=== PATIENT | female | born 2000 | race Two or more races ===

== ENCOUNTER 2024-03-31 09:01 | Outpatient (OUT) | payer BC, SELFPAY ==
--- NOTE | 2024-03-31 09:06 | US_ITS ---
[address] [address] Patient Name: KASH PARSONS MRN: [id number] date: 2000 Sex: F Assigned Patient Location: US Current Patient Location: US Accession/Order Number: [id number] Exam Date: 03/31/2024 09:08 Report Date: 03/31/2024 09:47 At the request of: ASHER CRUMP Procedure: US OB transvaginal EXAMINATION: US OB transvaginal HISTORY: Amenorrhea N91.2 Positive Test Z32.01 COMPARISON: No relevant comparison available. FINDINGS: GESTATIONAL SAC: Present and normal appearing. YOLK SAC: Present and normal appearing. POLE: Present and normal appearing. CARDIAC: 154 bpm UTERUS: Normal size and appearance. OVARIES: Right: Normal. Left: Normal. CERVIX: 4.7 cm in length and closed. CUL-DE-SAC: Normal. OTHER: None. AGE BY LMP: 7 weeks 3 days SHIRA BY LMP: 11/14/2024 AGE BY US CRL: 7 weeks 1 day SHIRA BY US CRL: 11/16/2024 US/US OB transvaginal IMPRESSION: 1. Single live intrauterine . Electronically authenticated by: MIKE VERA Date: 03/31/2024 09:47
== END 2024-03-31 09:02 | disposition home or self-care (01) ==
LOC: US 09:01
PROVIDERS: PCP Midwife; Visit Provider Midwife
DX: Z32.01 Encounter for pregnancy test, result positive (principal); Z3A.01 Less than 8 weeks gestation of pregnancy; N91.2 Amenorrhea, unspecified
CPT/HCPCS: 76817

== ENCOUNTER 2024-12-14 20:04 | Outpatient (REF) | payer BC, SELFPAY ==
--- OUTSIDE RECORDS SUMMARY | 2024-12-14 20:09 | XMS_ITS | Encounter Summary ---
Author Organization [facility] tem Address [id number] [address] [place] [address] Care Team Providers Care Dough Mixing Machine Operator Name Role Phone Services, [facility] Primary Care Provider Encounter Details Date Type Department Care Team (Late st Contact Info) Description 11/23/2024 Orders Only Maternal- Medicine at [facility] [address] [place] [phone] Lori Buck, SAM-LUIS MIGUEL [address] [place] [address] Social History Tobacco Use Types Packs/Day Years Used Date Smoking Tobacco: Never Smokeless Tobacco: Never Alcohol Use Standard Drinks/Week Comments Not Currently 0 (1 standard drink = 0.6 oz pur e alcohol) Overall Financial Resource Strain (CARDIA) Answe r Date Recorded How hard is it for you to pa y for the very basics like food, housing, medical care, and heating? Not hard at all 09/05/2020 PHQ-2 Answer Date Recorded Total Score 0 09/05/2020 PRAPARE - Transportation Answer Date Re corded In the past 12 months, has l ack of transportation kept you from medical appointments or from getting medications? No 09/05/2020 Lack of Transportation (Non-Medical) Not on file 09/05/2020 Childcare Answer Date Recorded Do problems getting child ca re make it difficult for you to work or study? No 09/05/2020 Employment Answer Date Recorded Employment Unknown 07/31/2018 Hunger Screening Answer Date Recorded Within the past 12 months we worried whether our food would run out before we got money to buy more. Never True 10/07/2024 Within the past 12 months th e food we bought just didn't last and we didn't have money to get more. Never True 10/07/2024 Purpose - Life Answer Date Recorded Purpose and direction in life Unknown Estimated Date of Delivery Comme nts Yes 05/01/2025 Based on last me nstrual period of 07/25/2024 Sex and Gender Information Value Date Recorded Sex Assigned at Not on file Legal Sex Female 2:21 PM EDT Gender Identity Not on file Sexual Orientation Not on file documented as of this encounter Plan of Treatment Upcoming Encounters Date Type Department Care Team (Late st Contact Info) Description 12/15/2024 3:15 PM EDT Hospital Encounter [facility] - Ultrasound [address] [place] [phone] 12/23/2024 1:00 PM EDT Appointment [facility] - [facility] US Imaging [address] [place] [phone] 12/23/2024 3:00 PM EDT Office Visit Maternal- Medicine at [facility] [address] [place] [phone] Jes Urrutia MD [address] [address] Pepe Vasquez MD [address] [facility], [address] [place] [phone] 01/05/2025 3:15 PM EST Appointment [facility] - Ultrasound [address] [place] [phone] 01/20/2025 1:00 PM EST Appointment [facility] - [facility] US Imaging [address] [place] [phone] documented as of this encounter Procedures Procedure Name Priority Date/Time Associated Diagnosis Comments UNLISTED LAB TEST Routine 10/27/2024 3:26 PM EDT UNLISTED LAB TEST Routine 10/23/2024 3:25 PM EDT documented in this encounter Results * Unlisted Lab Test (10/27/2024 3:26 PM EDT) us Lori Floro SUPERVISOR IN[employer]ORY MERCHANDISING-[facility] LAB BLOOD ORDERABLES Yola l Result Performing Organization Address City/[facility] de Phone Number MANUALLY TRANSCRIBED RESULTS * Unlisted Lab Test (10/23/2024 3:25 PM EDT) us Lori Floro SUPERVISOR [employer] MERCHANDISING[employer] LAB BLOOD ORDERABLES Yola l Result Performing Organization Address [facility] de Phone Number MANUALLY TRANSCRIBED RESULTS documented in this encounter Visit Diagnoses Not on filedocumented in this encounter Additional Health Concerns Assessment Noted Time PHQ-9 Depression Total Score: 0 09/06/19 21 10:51 AM EDT documented as of this encounter Care Teams Dough Mixing Machine Operator Relationship Specialty Start Date End Date Services, [facility] [address] [place] PCP - General Family Medicine 03/12/17 documented as of this encounter
--- OUTSIDE RECORDS SUMMARY | 2024-12-14 20:09 | XMS_ITS | Clinical Summary ---
[facility] Organization [facility] tem Address [id number] [address] [place] [address] Care Team Providers Care Rn Home Health Name Role Phone Services, [facility] Primary Care Provider Allergies No known active allergies Medications ondansetron ODT (ZOFRAN ODT) 4 mg disintegrating tablet Dissolve 1 tablet (4 mg total) on tongue every 8 (eight) hours as needed for nausea for up to 10 doses. 10 tablet 5 Active 21-iron fu-folic acid ( COMPLETE) 14 mg iron- 400 mcg tablet Take 1 tablet by mouth in the morning. 30 tablet 5 Active Active Problems Problem Noted Date Diagnosed Date Pelvic pressure in , antepartum, third trimester 02/27/2021 09/08/2020 UTI (urinary tract infection) 09/07/2020 Primiparity 09/07/2020 Estimated Date of Delivery Comme nts Yes 05/01/2025 Based on last me nstrual period of 07/25/2024 Encounters Date Type Department Care Team Description 11/27/2024 Orders Only Maternal- Medicine at [facility] [address] [place] [phone] Carley Johnson RN Monochorionic diamniotic twin gestation in second trimester (Primary Dx) 11/27/2024 Orders Only Maternal- Medicine at [facility] [address] [place] [phone] Carley Johnson RN Monochorionic diamniotic twin gestation in second trimester (Primary Dx) 11/27/2024 Orders Only Maternal- Medicine at [facility] [address] [place] [address] Carley Johnson RN Monochorionic diamniotic twin gestation in second trimester (Primary Dx) 11/27/2024 Telephone Maternal- Medicine at [facility] [address] [place] [address] Lee Meadows 11/25/2024 12:57 PM EDT - 11/25/2024 11:59 PM EDT Hospital Encounter [facility] US Imaging [address] [place] [address] Monochorionic diamniotic twin gestation in second trimester Discharge Disposition: Home 11/25/2024 Travel 11/23/2024 Orders Only Maternal- Medicine at [facility] [address] [place] [address] Lori Buck APRN-LUIS MIGUEL 11/23/2024 Abstract Maternal- Medicine at [facility] [address] [place] [address] External, Scanning Provider 11/20/2024 Orders Only Maternal- Medicine at [facility] [address] [place] [address] Teresa Mercado RN Monochorionic diamniotic twin gestation in second trimester (Primary Dx) 10/07/2024 12:40 AM EDT - 10/07/2024 2:21 AM EDT Emergency [facility] - Emergency [address] [place] [address] Wesly Smith DO Vaginal bleeding affecting early (Primary Dx) Discharge Disposition: Home 10/07/2024 Travel from Last 3 Months Family History Medical History Relation Name Comments No Known Problems Father No Known Problems Mother No Known Problems Sister 1 No Known Problems Sister 2 No Known Problems Sister 3 No Known Problems Sister 4 Breast cancer Neg Hx Colon cancer Neg Hx Ovarian cancer Neg Hx Relation Name Status Comments Father Alive Mother Alive Sister 1 Alive Sister 2 Alive Sister 3 Alive Sister 4 Alive Social History Tobacco Use Types Packs/Day Years [...] on file Sexual Orientation Not on file Last Filed Vital Signs Vital Sign Reading Time Taken Comments Blood Pressure 111/71 10/07/2024 12:44 AM EDT Pulse 98 10/07/2024 12:44 AM EDT Temperature 36.8 C (98.2 F) 10/07/2024 12:44 AM EDT Respiratory Rate 18 10/07/2024 12:44 AM EDT Oxygen Saturation 99% 10/07/2024 12:44 AM EDT Inhaled Oxygen Concentration - - Weight 46.3 kg (102 lb) 10/07/2024 12:44 AM EDT Height 157.5 cm (5' 2 ) 10/07/2024 12:44 AM EDT Body Mass Index 18.66 10/07/2024 12:44 AM EDT Plan of Treatment Upcoming Encounters Date Type Department Care Team (Late st Contact Info) Description 12/15/2024 3:15 PM EDT Hospital Encounter [facility] - Ultrasound [address] [place] [address] 12/23/2024 1:00 PM EDT Appointment [facility] US Imaging [address] [place] [phone] 12/23/2024 3:00 PM EDT Office Visit Maternal- Medicine at [facility] [address] [place] [address] Jes Urrutia MD [address] [place] [address] Pepe Vasquez MD [address], [address] [place] [address] 01/05/2025 3:15 PM EST Appointment [facility] - Ultrasound [address] [place] [address] 01/20/2025 1:00 PM EST Appointment [facility] US Imaging [address] [place] [phone] Health Maintenance Due Date Last Done Comments Depression Screening 2014 Chlamydia Screening 08/10/2021 08/10/2020 Pap Smear 06/14/2023 DTaP,Tdap and Td Vaccines (7 - Td or Tdap) 08/09/2024 08/09/2014, 06/26/2007, 12/24/2003, Additional history exists Influenza Vaccine 10/26/2024 12/27/2011 Adult BMI Screening 10/07/2025 10/07/2024 Tobacco Screening 10/07/2025 10/07/2024 Medical Devices Not on file Procedures Procedure Name Priority Date/Time Associated Diagnosis Comments US [facility] COMPREHENSIVE ANATOMIC SURVEY Routine 11/25/2024 3:09 PM EDT Monochorionic diamniotic twin gestation in second trimester UNLISTED LAB TEST Routine 10/27/2024 3:2 6 PM EDT UNLISTED LAB TEST Routine 10/23/2024 3:2 5 PM EDT POCT NURSING URINE MACROSCOPIC UA Routine 10/07/2024 1:07 AM EDT HCG-BETA, SERUM STAT 10/07/2024 12:54 AM EDT EXTRA TUBES SST TOP Routine 10/07/2024 1 2:53 AM EDT EXTRA TUBES LAVENDER TOP Routine 10/07/2024 12:53 AM EDT EXTRA TUBES Routine 10/07/2024 12:53 AM EDT ER EXTRA URINE MARBLE STAT 10/07/2024 12:50 AM EDT ER EXTRA URINE CULTURE STAT 12:50 AM EDT ER EXTRA URINE STAT 10/07/2024 12:50 AM EDT TYPE AND SCREEN Routine 10/05/2024 TYPE AND SCREEN Routine 10/05/2024 TSH Routine 10/05/2024 T4, FREE Routine 10/05/2024 HEPATITIS C(HCV) ANTIBODY W/REFLEX TO PCR Routine 10/05/2024 HIV 1&2 AB/AG SCREEN (P24 AG) Routine 10/05/2024 HEMOGLOBIN A1C Routine 10/05/2024 HEPATITIS B SURFACE ANTIGEN Routine 10/05/2024 CBC (NO DIFF) Routine 10/05/2024 RUBELLA IGG IMMUNE STATUS Routine 10/05/2024 CHLAMYDIA/GC BY PCR MOIRA SWAB STAT 08/10/2020 7:55 PM EDT from Last 3 Months or Most Recently Relevant to Health Maintenance Results * [facility] COMPREHENSIVE ANATOMIC SURVEY (11/25/2024 3:09 PM EDT) Anatomical Region Laterality Modality OB-[employer]IL [employer] Ultrasound 11/25/2024 1:15 PM EDT Narrative 11/26/2024 1:12 PM EDT NAME: ISSA HEWITT : 2000 SEX: F Accession Number: [id number] ORDERING PHYSICIAN: HILL ROA REFERRING PHYSICIAN: HILL ROA ADDENDUM ----- --------- Both in 1st to call axis axis caution unlike has been told that you do not talk on the phone unlike want to talk on the [place] images in the middle night of patients updated labs and people thinking that is okay all gotten unlike correct but if you need to get a hold of me than all Coding ----- --------- Procedures [id number]: Ultrasound, uterus, real time with image documentation, and maternal evaluation plus detailed anatomic examination, transabdominal approach;single or first gestation. 2 77754: Doppler velocimetry, ; middle cerebral artery. 2 Indication ----- --------- Screening for Anatomic Survey, Ceiba-Di twin . History ----- --------- OB History 2. Para 1 [id number] Current ----- --------- Cell free DNA Low Risk analysis Low Risk Maternal Assessment ----- --------- Physical Exam Height 157 cm, 5 ft 2 in. Weight 50 kg, 111 lb. Initial weight 46 kg, 102 lb. BMI 20.30 kg/m . Initial BMI 18.66 kg/m . Weight gain 4 kg, 9 lb Method ----- --------- Transabdominal ultrasound examination. View: Suboptimal view: limited by position. ----- --------- Twin . Number of fetuses: 2. Monochorionic-diamniotic Dating ----- --------- LMP on: 07/25/2024 GA by LMP 17 w + 4 d SHIRA by LMP: 05/01/2025 Previous Ultrasound on: 09/28/2024 Type of prior assessment: GA GA at prior assessment date 9 w + 0 d GA by previous U/S 17 w + 2 d SHIRA by previous Ultrasound: 05/03/2025 Ultrasound examination on: 11/25/2024 GA by U/S based upon: AC, BPD, Femur, HC GA by U/S 17 w + 4 d SHIRA by U/S: 05/01/2025 GA by U/S based upon (Fetus 2): AC, BPD, Femur, HC GA by U/S (Fetus 2) 18 w + 0 d SHIRA by U/S (Fetus 2): 04/28/2025 Assigned: based on the LMP, selected on 11/25/2024 Assigned GA (weeks days) 17 w + 4 d Assigned SHIRA: 05/01/2025 Fetus A: General Evaluation ----- --------- Cardiac activity Present. FHR 151 bpm. Presentation: cephalic, Lower Left Placenta: Placental site: anterior, away from cervical os Umbilical cord: Cord vessels: 3 vessel cord. Insertion site: not examined Amniotic fluid: Amount of AF: normal amount. MVP 3.4 cm Fetus B: General Evaluation ----- --------- Cardiac activity Present. FHR 148 bpm. Presentation: cephalic, Upper Right Placenta: Placental site: anterior, away from cervical os Umbilical cord: Cord vessels: 3 vessel cord. Insertion site: not examined Amniotic fluid: Amount of AF: normal amount. MVP 4.1 cm Fetus A: Biometry ----- --------- Standard BPD 39.1 mm 17w 6d 65% Hadlock OFD 50.0 mm 18w 3d 81% Alina HC 143.2 mm 17w 4d 41% Hadlock Cerebellum tr 17.1 mm 17w 2d 32% Hill Nuchal fold 1.7 mm AC 121.9 mm 17w 6d 58% Hadlock Femur 22.8 mm 16w 6d 19% Hadlock Humerus 22.2 mm 16w 6d 27% Alina HC / AC 1.17 37% Hadlock EFW 193 g 34% Hadlock EFW discordance 10.6 % EFW (lb) 0 lb EFW (oz) 7 oz EFW by: Hadlock ([id number]) Extended Tibia 18.7 mm 16w 3d 18% Alina CM 4.1 mm 41% Nicolaides Head / Face / Neck Cephalic index 0.78 38% Nicolaides Nasal bone: not examined Extremities / Bony Struc FL / BPD 0.58 6% Hadlock FL / HC 0.16 11% Hadlock FL / AC 0.19 8% Hadlock Other Structures FHR 151 bpm Fetus B: Biometry ----- --------- Standard BPD 39.2 mm 17w 6d 66% Hadlock OFD 53.3 mm 19w 1d 95% Alina HC 148.2 mm 18w 0d 61% Hadlock Cerebellum tr 18.4 mm 18w 1d 80% Hill Nuchal fold 3.0 mm AC 130.4 mm 18w 4d 80% Hadlock Femur 24.0 mm 17w 2d 32% Hadlock Humerus 23.3 mm 17w 2d 43% Alina HC / AC 1.14 19% Hadlock EFW 216 g 66% Hadlock EFW discordance 10.6 % EFW (lb) 0 lb EFW (oz) 8 oz EFW by: Hadlock ([id number]) Extended Tibia 20.1 mm 17w 0d 35% Alina CM 3.5 mm 22% Nicolaides Head / Face / Neck Cephalic index 0.74 5% Nicolaides Nasal bone: not examined Extremities / Bony Struc FL / BPD 0.61 21% Hadlock FL / HC 0.16 11% Hadlock FL / AC 0.18 5% Hadlock Other Structures FHR 148 bpm Fetus A: Anatomy ----- --------- The following structures appear normal: Head/Neck: Cranium. Choroid plexus. Midline falx. Cavum septi pellucidi. Cerebellum. Cisterna magna. Parenchyma. Neck. Nuchal fold. Heart/Thorax: Situs. Cardiac position. Cardiac axis. Cardiac size. Cardiac rhythm. Right lung. Left lung. Abdomen: Stomach. Kidneys. Bladder. Small bowel. Large bowel. Genitals. Extremities/Skeleton: Right upper arm. Right forearm. Right hand. Left upper arm. Left forearm. Right upper leg. Right lower leg. Left upper leg. Left lower leg. The following structures could not be adequately visualized: Head / Neck Vermis. Heart / Thorax 4-chamber view. 3-vessel view. 4-ceetpr-yfsdbkh view. Aortic arch view. Bicaval view. Interventricular septum. Great vessels. Spine: Cervical spine. Thoracic spine. Lumbar spine. Sacral spine. Extremities / Left hand. Left foot. Skeleton The following structures could not be examined: Head / Neck Lateral ventricles. Face: Lips. Profile. Nose. Nasal bone. Maxilla. Mandible. Orbits. Heart / Thorax RVOT view. LVOT view. Ductal arch view. Diaphragm. Abdomen Abdom. wall. Cord insertion. Right renal artery. Left renal artery. Extremities / Right foot. Skeleton Fetus B: Anatomy ----- --------- The following structures appear normal: Head / Neck Cranium. Choroid plexus. Midline falx. Cerebellum. Cisterna magna. Parenchyma. Neck. Face Lips. Nose. Heart / Thorax Situs. Cardiac position. Cardiac axis. Cardiac size. Cardiac rhythm. Right lung. Left lung. Diaphragm. Abdomen Abdom. wall. Cord insertion. Stomach. Kidneys. Bladder. Small bowel. Large bowel. Genitals. Extremities / Right upper arm. Right forearm. Right hand. Left upper arm. Left forearm. Right upper leg. Right lower Skeleton leg. Left upper leg. Left lower leg. The following structures could not be adequately visualized: Head / Neck Cavum septi pellucidi. Face Profile. Heart / Thorax 4-chamber view. RVOT view. LVOT view. 3-vessel view. 9-saftkw-vwbjfzi view. Aortic arch view. Bicaval view. Ductal arch view. Interventricular septum. Great vessels. Spine Cervical spine. Thoracic spine. Lumbar spine. Sacral spine. Extremities / Left hand. Right foot. Left foot. Skeleton The following structures could not be examined: Head / Neck Lateral ventricles. Vermis. Nuchal fold. Face Nasal bone. Maxilla. Mandible. Orbits. Abdomen Right renal artery. Left renal artery. Fetus A: Doppler ----- --------- Mid Cerebral Artery: normal PI 1.42 RI 0.75 PS 20.96 cm/s PS 0.92 MoM ED 5.30 cm/s TAmax 11.06 cm/s Fetus B: Doppler ----- --------- Mid Cerebral Artery: normal PI 1.14 RI 0.72 PS 21.77 cm/s PS 0.96 MoM ED 6.15 cm/s TAmax 13.66 cm/s Maternal Structures ----- --------- Uterus Visualized Cervix Suboptimal Approach - Transabdominal Right Ovary Visualized Size 1.9 cm x 2.0 cm x 1.4 cm. Vol 2.7 cm Left Ovary Not visualized Cul de Sac Suboptimal Impression ----- --------- Monochorionic-diamniotic twin consistent with 17w 4d with an SHIRA of 05/01/2025. Twin A is cephalic, Lower Left. EFW measures at the 34%, AC measures at the 58%. Amniotic fluid MVP measures 3.4 cm. MCA PSV is in the unremarkable range for the evaluation of anemia. Twin B is cephalic, Upper Right. EFW mesures at the 66%, AC measures at the 80%. Amniotic fluid MVP measures 4.1 cm. MCA PSV is in the unremarkable range for the evaluation of anemia. Twin growth discordance is 10.6%. Recommendations ----- --------- TTTS surveillance follow up every 2 weeks with Dopplers. The patient is scheduled in four to six week(s) to complete anatomic survey, echocardiogram, cervical length and Dopplers. Subsequent follow up or other follow up as clinically determined by primary OB provider unless otherwise specified by M. Results forwarded to ordering provider so they can follow up with the patient as necessary. Procedure Note Jes Urrutia MD - 11/26/2024 NAME: ISSA HEWITT : 2000 SEX: F Accession Number: [id number] ORDERING PHYSICIAN: HILL ROA REFERRING PHYSICIAN: HILL ROA ADDENDUM ----- --------- Both in 1st to call axis axis caution unlike has been told that you do nottalk on the phone unlike want to talk on the [place] images in the middle night of patients updated labs and people thinkingthat is okay all gotten unlike correct but if you need to get a hold of me than all Coding ----- --------- Procedures [id number]: Ultrasound, uterus, real time with imagedocumentation, and maternal evaluation plus detailed anatomic examination, transabdominalapproach;single or first gestation. 2 17990: Doppler velocimetry, ; middle cerebral artery. 2 Indication ----- --------- Screening for Anatomic Survey, Ceiba-Di twin . History ----- --------- OB History 2. Para 1 [id number] Current ----- --------- Cell free DNA Low Risk analysis Low Risk Maternal Assessment ----- --------- Physical Exam Height 157 cm, 5 ft 2 in. Weight 50 kg, 111 lb. Initialweight 46 kg, 102 lb. BMI 20.30 kg/m . Initial BMI 18.66 kg/m . Weight gain 4 kg, 9 lb Method ----- --------- Transabdominal ultrasound examination. View: Suboptimal view: limited byfetal position. ----- --------- Twin . Number of fetuses: 2. Monochorionic-diamniotic Dating ----- --------- LMP on: 07/25/2024 GA by LMP 17 w + 4 d SHIRA by LMP: 05/01/2025 Previous Ultrasound on: 09/28/2024 Type of prior assessment: GA GA at prior assessment date 9 w + 0 d GA by previous U/S 17 w + 2 d SHIRA by previous Ultrasound: 05/03/2025 Ultrasound examination on: 11/25/2024 GA by U/S based upon: AC, BPD, Femur, HC GA by U/S 17 w + 4 d SHIRA by U/S: 05/01/2025 GA by U/S based upon (Fetus 2): AC, BPD, Femur, HC GA by U/S (Fetus 2) 18 w + 0 d SHIRA by U/S (Fetus 2): 04/28/2025 Assigned: based on the LMP, selected on 11/25/2024 Assigned GA (weeks days) 17 w + 4 d Assigned SHIRA: 05/01/2025 Fetus A: General Evaluation ----- --------- Cardiac activity Present. FHR 151 bpm. Presentation: cephalic, LowerLeft Placenta: Placental site: anterior, away from cervical os Umbilical cord: Cord vessels: 3 vessel cord. Insertion site: notexamined Amniotic fluid: Amount of AF: normal amount. MVP 3.4 cm Fetus B: General Evaluation ----- --------- Cardiac activity Present. FHR 148 bpm. Presentation: cephalic, UpperRight Placenta: Placental site: anterior, away from cervical os Umbilical cord: Cord vessels: 3 vessel cord. Insertion site: notexamined Amniotic fluid: Amount of AF: normal amount. MVP 4.1 cm Fetus A: Biometry ----- --------- Standard BPD 39.1 mm 17w 6d 65% Hadlock OFD 50.0 mm 18w 3d 81% Alina HC 143.2 mm 17w 4d 41% Hadlock Cerebellum tr 17.1 mm 17w 2d 32% Hill Nuchal fold 1.7 mm AC 121.9 mm 17w 6d 58% Hadlock Femur 22.8 mm 16w 6d 19% Hadlock Humerus 22.2 mm 16w 6d 27% Alina HC / AC 1.17 37% Hadlock EFW 193 g 34% Hadlock EFW discordance 10.6 % EFW (lb) 0 lb EFW (oz) 7 oz EFW by: Hadlock ([id number]) Extended Tibia 18.7 mm 16w 3d 18% Alina CM 4.1 mm 41% Nicolaides Head / Face / Neck Cephalic index 0.78 38% Nicolaides Nasal bone: not examined Extremities / Bony Struc FL / BPD 0.58 6% Hadlock FL / HC 0.16 11% Hadlock FL / AC 0.19 8% Hadlock Other Structures FHR 151 bpm Fetus B: Biometry ----- --------- Standard BPD 39.2 mm 17w 6d 66% Hadlock OFD 53.3 mm 19w 1d 95% Alina HC 148.2 mm 18w 0d 61% Hadlock Cerebellum tr 18.4 mm 18w 1d 80% Hill Nuchal fold 3.0 mm AC 130.4 mm 18w 4d 80% Hadlock Femur 24.0 mm 17w 2d 32% Hadlock Humerus 23.3 mm 17w 2d 43% Alina HC / AC 1.14 19% Hadlock EFW 216 g 66% Hadlock EFW discordance 10.6 % EFW (lb) 0 lb EFW (oz) 8 oz EFW by: Hadlock ([id number]) Extended Tibia 20.1 mm 17w 0d 35% Alina CM 3.5 mm 22% Nicolaides Head / Face / Neck Cephalic index 0.74 5% Nicolaides Nasal bone: not examined Extremities / Bony Struc FL / BPD 0.61 21% Hadlock FL / HC 0.16 11% Hadlock FL / AC 0.18 5% Hadlock Other Structures FHR 148 bpm Fetus A: Anatomy ----- --------- The following structures appear normal: Head/Neck: Cranium. Choroid plexus. Midline falx. Cavum septi pellucidi.Cerebellum. Cisterna magna. Parenchyma. Neck. Nuchal fold. Heart/Thorax: Situs. Cardiac position. Cardiac axis. Cardiac size. Cardiacrhythm. Right lung. Left lung. Abdomen: Stomach. Kidneys. Bladder. Small bowel. Large bowel. Genitals. Extremities/Skeleton: Right upper arm. Right forearm. Right hand. Leftupper arm. Left forearm. Right upper leg. Right lower leg. Left upper leg. Left lower leg. The following structures could not be adequately visualized: Head / Neck Vermis. Heart / Thorax 4-chamber view. 3-vessel view. 8-esolbj-hysxfoo view.Aortic arch view. Bicaval view. Interventricular septum. Great vessels. Spine: Cervical spine. Thoracic spine. Lumbar spine. Sacral spine. Extremities / Left hand. Left foot. Skeleton The following structures could not be examined: Head / Neck Lateral ventricles. Face: Lips. Profile. Nose. Nasal bone. Maxilla. Mandible. Orbits. Heart / Thorax RVOT view. LVOT view. Ductal arch view. Diaphragm. Abdomen Abdom. wall. Cord insertion. Right renal artery. Left renalartery. Extremities / Right foot. Skeleton Fetus B: Anatomy ----- --------- The following structures appear normal: Head / Neck Cranium. Choroid plexus. Midline falx. Cerebellum. Cisternamagna. Parenchyma. Neck. Face Lips. Nose. Heart / Thorax Situs. Cardiac position. Cardiac axis. Cardiac size.Cardiac rhythm. Right lung. Left lung. Diaphragm. Abdomen Abdom. wall. Cord insertion. Stomach. Kidneys. Bladder.Small bowel. Large bowel. Genitals. Extremities / Right upper arm. Right forearm. Right hand. Left upper arm.Left forearm. Right upper leg. Right lower Skeleton leg. Left upper leg. Left lower leg. The following structures could not be adequately visualized: Head / Neck Cavum septi pellucidi. Face Profile. Heart / Thorax 4-chamber view. RVOT view. LVOT view. 3-vessel view.6-qfaosd-uekesld view. Aortic arch view. Bicaval view. Ductal arch view. Interventricular septum. Great vessels. Spine Cervical spine. Thoracic spine. Lumbar spine. Sacral spine. Extremities / Left hand. Right foot. Left foot. Skeleton The following structures could not be examined: Head / Neck Lateral ventricles. Vermis. Nuchal fold. Face Nasal bone. Maxilla. Mandible. Orbits. Abdomen Right renal artery. Left renal artery. Fetus A: Doppler ----- --------- Mid Cerebral Artery: normal PI 1.42 RI 0.75 PS 20.96 cm/s PS 0.92 MoM ED 5.30 cm/s TAmax 11.06 cm/s Fetus B: Doppler ----- --------- Mid Cerebral Artery: normal PI 1.14 RI 0.72 PS 21.77 cm/s PS 0.96 MoM ED 6.15 cm/s TAmax 13.66 cm/s Maternal Structures ----- --------- Uterus Visualized Cervix Suboptimal Approach - Transabdominal Right Ovary Visualized Size 1.9 cm x 2.0 cm x 1.4 cm. Vol 2.7 cm Left Ovary Not visualized Cul de Sac Suboptimal Impression ----- --------- Monochorionic-diamniotic twin consistent with 17w 4d with an EDDof 05/01/2025. Twin A is cephalic, Lower Left. EFW measures at the 34%, AC measures at the 58%. Amniotic fluid MVP measures 3.4 cm. MCA PSV is in the unremarkable range for the evaluation of anemia. Twin B is cephalic, Upper Right. EFW mesures at the 66%, AC measures at the 80%. Amniotic fluid MVP measures 4.1 cm. MCA PSV is in the unremarkable range for the evaluation of anemia. Twin growth discordance is 10.6%. Recommendations ----- --------- TTTS surveillance follow up every 2 weeks with Dopplers. The patient is scheduled in four to six week(s) to complete anatomicsurvey, echocardiogram, cervical length and Dopplers. Subsequent follow up or other follow up as clinically determined byprimary OB provider unless otherwise specified by [facility]. Results forwarded to ordering provider so they can follow up with thepatient as necessary. Hill Roa DO [facility] ORDERABLES Final Result * Unlisted Lab Test (10/27/2024 3:26 PM EDT) Only the most recent of2 resultswithin the time period is included. Lori GAMBOA LAB BLOOD ORDERABLES Yola l Result MANUALLY TRANSCRIBED RESULTS * POCT Nursing Urine Macroscopic UA (10/07/2024 1:07 AM EDT) POC Urine Specific Ponce 1.020 1.010, 1.015, 1.020, 1.025 10/07/2024 12:58 AM EDT [facility] POC Urine Leukocyte Esterase Negative Negative 10/07/2024 12:58 AM EDT [facility] POC Urine Nitrite Negative Negative 10/07/2024 12:58 AM EDT [facility] POC Urine pH 7.5 5.0, 6.0, 6.5, 7.0, 7.5, 8.0, 8.5, 5.5 10/07/2024 12:58 AM EDT [facility] POC Urine Protein Negative Negative 10/07/2024 12:58 AM EDT [facility] POC Urine Glucose Negative Negative 10/07/2024 12:58 AM EDT [facility] POC Urine Ketones Negative Negative 10/07/2024 12:58 AM EDT [facility] POC Urine Urobilinogen 0.2 E.U./dL 10/07/2024 12:58 AM EDT [facility] POC Urine Bilirubin Negative Negative 10/07/2024 12:58 AM EDT [facility] POC Urine Blood/HGB Negative Negative 10/07/2024 12:58 AM EDT [facility] Urine 10/07/2024 1:07 AM EDT 10/07/2024 12:58 AM EDT Wesly Smith DO POINT OF CARE TEST ORDERABLES Final Result [facility] [address] [place] [address], [place] * HCG, Quantitative, (10/07/2024 12:54 AM EDT) SERUM B HCG,3RD I.S. 238,709 mIU/mL 10/07/2024 2:07 AM EDT [facility] Blood Venous blood / Unknown Venipuncture / Unknown 10/07/2024 12:54 AM EDT 10/07/2024 12:55 AM EDT Narrative [facility] - 10/07/2024 2:07 AM EDT WEEKS (SINCE LMP) MIU/mL 3 WEEKS 5 - 50 4 WEEKS 5 - 426 5 WEEKS 18 - 7,340 6 WEEKS 1,080 - 56,500 7-8 WEEKS 7,650 - 229,000 9-12 WEEKS 25,700 - 288,000 13-16 WEEKS 13,300 - 254,000 17-24 WEEKS 4,060 - 165,400 25-40 WEEKS 3,640 - 117,000 MALES AND NON- FEMALES - <5 MIU/mL This test has been FDA approved for use in only. Elevated levels are not necessarily diagnostic for trophoblastic or nontrophoblastic neoplasms. Wesly Smith DO LAB BLOOD ORDERABLES Final Re sult Performing Organization Address City/[facility]/ZIP Co de Phone Number [address] [place], [place] [id number], [place] * SST TOP (10/07/2024 12:53 AM EDT) Extra Tube Auto Resulted 10/07/2024 2:02 AM EDT [facility] Blood Venous blood / Unknown 10/07/2024 12:53 AM EDT 10/07/2024 12:55 AM EDT Wesly Smith DO LAB BLOOD ORDERABLES Final Re sult Performing Organization Address [facility] Co de Phone Number [address] [place] [address], [place] * Lavender Top (10/07/2024 12:53 AM EDT) Extra Tube Auto Resulted 10/07/2024 2:02 AM EDT [facility] Blood Venous blood / Unknown 10/07/2024 12:53 AM EDT 10/07/2024 12:55 AM EDT Wesly Smith DO LAB BLOOD ORDERABLES Final Re sult Performing Organization Address City/[facility] Co de Phone Number [address] [place] [address], [place] * Extra Urine Lamar (10/07/2024 12:50 AM EDT) Extra Tube Auto Resulted 10/07/2024 2:02 AM EDT [facility] Urine Urine specimen collection, clean catch / Unknown 10/07/2024 12:50 AM EDT 10/07/2024 1:27 AM EDT us Wesly Smith DO URINE ORDERABLES Final Result Performing Organization Address [facility] Co de Phone Number [address] [place] [address], [place] * Extra Urine Culture (10/07/2024 12:50 AM EDT) Extra Tube Auto Resulted 10/07/2024 2:02 AM EDT [facility] Urine Urine specimen collection, clean catch / Unknown 10/07/2024 12:50 AM EDT 10/07/2024 1:27 AM EDT us Wesly Smith DO URINE ORDERABLES Final Result Performing Organization Address [facility] Co de Phone Number [address] [place] [address], [place] * Extra Urine (10/07/2024 12:50 AM EDT) Extra Tube Auto Resulted 10/07/2024 2:02 AM EDT [facility] Urine Urine specimen collection, clean catch / Unknown 10/07/2024 12:50 AM EDT 10/07/2024 1:27 AM EDT us Wesly Smith DO URINE ORDERABLES Final Result Performing Organization Address [facility] Co de Phone Number [address] [place] [address], [place] * HIV 1&2 AB/AG Screen (P24 AG) (10/05/2024) HIV 1&2 AB/AG Negative MANUAL LY TRANSCRIBED RESULTS Blood Venous blood / Unknown us Not In System Ref Prov LAB BLOOD ORDERABLES Yola l Result Performing Organization Address City/[facility]/ZIP Co de Phone Number MANUALLY TRANSCRIBED RESULTS * Rubella IGG immune status (10/05/2024) Rubella immune IgG 1.22 MANUALLY TRANSCRIBED RESULTS Blood Venous blood / Unknown us Not In System Ref Prov LAB BLOOD ORDERABLES Yola l Result Performing Organization Address City/[facility]/ZIP Co de Phone Number MANUALLY TRANSCRIBED RESULTS * Hepatitis C(HCV) Ab w/ Reflex to PCR (10/05/2024) Hepatitis C Antibody Non Reactive MANUALLY TRANSCRIBED RESULTS Blood Venous blood / Unknown us Not In System Ref Prov LAB BLOOD ORDERABLES Yola l Result Performing Organization Address [facility] Co de Phone Number MANUALLY TRANSCRIBED RESULTS * Hepatitis B surface antigen (10/05/2024) Hepatitis B Surface Antigen Non Reactive MANUALLY TRANSCRIBED RESULTS Blood Venous blood / Unknown us Not In System Ref Prov LAB BLOOD ORDERABLES Yola l Result Performing Organization Address [facility] de Phone Number MANUALLY TRANSCRIBED RESULTS * CBC without diff (10/05/2024) Hemoglobin 11.0 MANUALLY TRANSCRIBED RESULTS Hematocrit 35.0 MANUALLY TRANSCRIBED RESULTS Rbc Mcv (Fl) By Automated Count 86.8 MANUALLY TRANSCRIBED RESULTS Blood Venous blood / Unknown us Not In System Ref Prov LAB BLOOD ORDERABLES Yola l Result Performing Organization Address [facility] Co de Phone Number MANUALLY TRANSCRIBED RESULTS * Type and screen (10/05/2024) Only the most recent of2 resultswithin the time period is included. Abo/Rh(D) O Positive MANUALLY TRANSCRIBED RESULTS Blood Venous blood / Unknown us Not In System Ref Prov BLOOD BANK TEST ORDERABLE S Final Result MANUALLY TRANSCRIBED RESULTS * TSH (10/05/2024) Thyroid Stimulating (3Rd Generation) Hormone/ Tsh 0.18 MANUALLY TRANSCRIBED RESULTS Blood Venous blood / Unknown us Not In System Ref Prov LAB BLOOD ORDERABLES Yola l Result MANUALLY TRANSCRIBED RESULTS * T4, free (10/05/2024) T4 Free Free T4 1.3 MANUALLY TRANSCRIBED RESULTS Blood Venous blood / Unknown us Not In System Ref Prov LAB BLOOD ORDERABLES Yola l Result MANUALLY TRANSCRIBED RESULTS * Hemoglobin A1c (10/05/2024) Pathologist [facility] Hemoglobin A1C 5.1 4.0 - 6.0 % MANUALLY TRANSCRIBED RESULTS Blood Venous blood / Unknown us Scanning Provider External LAB BLOOD ORDERABLES Final Result MANUALLY TRANSCRIBED RESULTS * Chlamydia/GC by PCR Moira Swab (08/10/2020 7:55 PM EDT) Pathologist [facility] Specimen source VS 8:06 PM EDT [facility] Chlamydia DNA PCR Negative Negative^N egative 08/12/2020 12:55 PM EDT [facility] Comment: Chlamydia trachomatis not detected by nucleic acid amplification. This does not exclude the possibility of infection because results are dependent on adequate specimen collection. Gonorrhea DNA PCR Negative Negative^N egative 08/12/2020 12:55 PM EDT [facility] Comment: Neisseria gonorrhoeae not detected by nucleic acid amplification. This does not exclude the possibility of infection because results are dependent on adequate specimen collection. GENS 08/10/2020 7:55 PM EDT 08/11/2020 11:00 AM EDT us Corey Dc MD MICROBIOLOGY - GENERAL ORDERABLE S Final Result [facility] [address] [place] [address] [facility] [address] [place] [address] from Last 3 Months or Most Recently Relevant to Health Maintenance Insurance [employer]THE[employer] Care Teams Rn Home Health Relationship Specialty Start Date End Date Services, [facility] [place] [place] PCP - General Family Medicine 03/12/17
--- OUTSIDE RECORDS SUMMARY | 2024-12-14 20:09 | XMS_ITS | Patient Health Record ---
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 Name Role Phone Maura Boucher Unavailable [phone] Bridget Pelaez Unavailable [phone] Allergies No Known Allergies Reason For Referral Reason Please extract #[phone] ,[phone] Diagnosis 1 Encounter for dental examination and cleaning with abnormal findings (Z01.21) Referral Organization [facility] Referring Provider First Name Bridget Referring Provider Last Name Benigno Referring Provider Speciality Dental Gen era Practice Referred Provider Fernando Velazquez Referred Provider Specialty Oral Surgery General Notes Heavenly Umaña 05/26 12:35:04 PM >Referral report is attached to this referral. Referral Priority Routine Immunizations Vaccine Route Administration Date Status Comme nts *Hep A, ped/adol, 2 dose-VFC IM Intramuscular 12/18/2011 Administered Status:Complete ,Reason:Given or N/A *Hep B, adolescent or pediatric (11-19), 3 dose schedule-VFC IM Intramuscular 06/18/2011 Administered Status:Complete ,Reason:Given or N/A *HPV9 (human papillomavirus), nonavalent-Private IM Intramuscular 09/04/2016 Administered Status:Compl ete ,Reason:Given or N/A *Tdap (Adacel)-VFC IM Intramuscular 08/09/2014 Administere d Status:Complete ,Reason:Given or N/A *Varicella (Varivax)-VFC SC Subcutaneous 06/18/2011 Administered Status:Complete ,Reason:Given or N/A Hep A, ped/adol, 3 dose IM Intramuscular 06/18/2011 Administered Status:Complete ,Reason:Given or N/A HPV (human papillomavirus), quadrivalent, 3 dose schedule IM Intramuscular 08/09/2014 Administered Status:Complete ,Reason:Given or N/A Influenza, live, intranasal NS Nasal 12/27/2011 Administered Status:Complete ,Reason:Given or N/A Meningococcal PBK0M-OHD IM Intramuscular 08/09/2014 Administered Status:Complete ,Reason:Given or N/A Social History Tobacco Use: Social History Observation Description Date Details (start date - stop date) Never Smoker NA - NA Tobacco Control (Standard) Question Answer Notes Tobacco use: Nonsmoker Additional Findings: Tobacco non-user Current no nsmoker Section Notes: Nutrition counseling focusin g on a low sodium and low sugar diet discussed with the patient, as well as appropriate weekly exercise and increased activity as tolerated to work towards a more optimal body mass index for improved overall health. Problems Problem Type SNOMED Code ICD Code Onset Dates Problem Status W/U Status Risk Notes Problem Syncope (021163538) Syncope (R55) Active confirmed Comment:Symptoms seem vasovagal in nature. Could also have a component of anxiety due to recent stressors. Orthostatic vitals okay - no significant decrease in systolic or diastolic pressures. Discussed keeping symptom diary. Mom concerned about heart related condition - will refer to Cardiology., Problem Need for varicella vaccine (V05.4) (V05.4) Active confirmed Problem Depression screening (645707491) Screening for depression (Z13.31) Active confirmed Description:Dep re ssion screen Problem Well adolescent (172387057) Well adolescent visit (Z00.3) Active confirmed Comment:Overall well. Vaccines UTD. 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 Asymptomatic today. Anticipatory guidance provided. Bright futures handout provided. Parent verbalized understanding, Problem Fatigue (26200836) Fatigue (R53.83) Active confirmed Problem TdaP VACCINE (V06.8) 13316 (V06.8) Active confirmed Problem Requires vaccination (378604726) Need for prophylactic vaccination against human papillomavirus (Z23) Active confirmed Description:Nee d for HPV vaccination Problem Follow-up status (202758203) Follow up (Z09) Active confirmed Problem Requires vaccination (879910197) Need for prophylactic vaccination against viral hepatitis (Z23) Active confirmed Description: HEP A Peds/Adolescent [address] Problem Contraception care education (470648288) control counseling (Z30.09) Active confirmed Comment:Patient would like Nexplanon implant. Discussed implant will provide protection (99%) from but not against STD's. Refer to Airport Operations Coordinator. Parent/Patient verbalized understanding., Problem Surveillance of subcutaneous contraceptive implant (104116041) Evaluation for contraceptive implant (Z30.017) Active confirmed Problem MENACTRA - MENINGOCOCCAL VACCINE (V03.89) 61013 (V03.89) Active confirmed Problem Needs influenza immunization (805616119) Flu Vaccination FluMist (V04.81) (18514) (V04.81) Active confirmed Problem History and physical examination, pre-employment (465135057) Physical exam, pre-employment (Z02.1) Active confirmed Comment:Cleared for employment. 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 PAtient has appt 03/19, Problem Syncope and collapse (785209637) Neurocardiogenic pre-syncope (R55) Active confirmed Comment:Did not go to Cardiology appt. Symptoms seem c/w neurocardiogenic pre-syncope and possibly may be secondary to anemia, Problem History and physical examination, sports participation (020853323) Sports physical (Z02.5) Active confirmed Comment:form completed Cleared for all sports Vaccines as ordered, Problem Complication occurring during (022107277) , complicated (O26.90) Active confirmed Comment:-multip le attempts have been made (left VMs) to call office without pt returning call; will send letter for pt to contact [facility] obgyn and send chart to referral nurse.,Story:ER reports of pt visit for bleeding during ., Problem Well child visit (976569777) Routine infant or child health check (V20.2) (V20.2) 2007 Problem resolved confirmed Vital Signs Heart Rate 78 /min 02/05/2024 Height-cm 154.94 cm 02/05/2024 Blood pressure diastolic 63 mm Hg 02/05/2024 Weight-kg 51.26 kg 02/05/2024 Height 61.00 in 02/05/2024 Blood pressure systolic 101 mm Hg 02/05/2024 Weight 113 lbs 02/05/2024 BMI 21.35 kg/m2 02/05/2024 Encounters Encounter Location Date Provider Diagnosis [facility] [address], [place] [id number] 02/05/2024 Bridget Pelaez Encounter for scre ening for dental disorders Z13.84 ; Necrosis of pulp K04.1 ; Dental caries into dentine K02.62 and Encounter for dental examination and cleaning with abnormal findings Z01.21 Assessments Encounter Date Diagnosis (ICD Code) Assessment Notes Treatment Notes Treatment Clinical Notes Section Notes 02/05/2024 Encounter for screening for dental disorders (ICD-10 - Z13.84) 02/05/2024 Necrosis of pulp (ICD-10 - K04.1) 02/05/2024 Dental caries into dentine (ICD-10 - K02.62) 02/05/2024 Encounter for dental examination and cleaning with abnormal findings (ICD-10 - Z01.21) Plan Of Treatment No Information Insurance Providers Payer Name Payer Address Payer Phone Subscriber Number Group Number Insured Name Patient Relationship to Insured Coverage Start Date [facility]age End [facility] [address] [facility] [place] [address] [id number] Naye Hook Self - patient is the insured 4 Medical (General) History Medical History History ICD Code Late effect of feldman (906.8), ProblemSta tus: Active, , Surgical History Surgery Date(Month/Year) SKIN GRAFT-LEFT ARM, ProblemStatus: Acti ve,
--- OUTSIDE RECORDS SUMMARY | 2024-12-14 20:10 | XMS_ITS | CCD ---
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 above: Performed By: #### N UM #### [facility] ([id number]) [address] [place] [address] [place] [address] UROBILINOGEN RENETTA 0.2 eu/dL Normal <1.1 [facility] Comment on above: Performed By: #### N UM #### [facility] ([id number]) [address] [facility], [place] [address] DRUG SCREEN MULTI URINEon Amphetamine Screen, Ur Negative NEGATIVE Me [facility] Barbiturate Screen, Ur Negative NEGATIVE [facility] Benzodiazepine Screen, Urine Negative NEGATIVE [facility] Buprenorphine Urine Negative NEGATIVE [facility] Cannabinoid Scrn, Ur Negative NEGATIVE [facility] Cocaine Metabolite, Urine Negative NEGATIVE [facility] MDMA, Urine NOT REPORTED [facility], Urine Negative [facility] Methamphetamine, Urine Negative NEGATIVE [facility] Opiates, Urine Negative NEGATIVE [facility] Oxycodone Screen, Ur Negative NEGATIVE [facility] Phencyclidine, Urine Negative NEGATIVE [facility] Propoxyphene, Urine Negative NEGATIVE [facility] Test Information NOT REPORTED [facility] Tricyclic Antidepressants, Urine Negative NEGATIVE [facility] Comment on above: Drug screen results are to be used for medical purposes only. All positive results are unconfirmed. Testing for employment or legal uses should be sent to a reference laboratory for confirmation. [facility] Drug Scr, Abuse, Uron 2021 Amphetamine(s),Ur Negative Normal NEG [facility] Comment on above: Performed By: #### D AU #### [facility] [address] [place] [address] [place] [address] Color Repairer: Edilson Crisostomo MD Barbiturate(s),Ur Negative Normal NEG [facility] Comment on above: Performed By: #### D AU #### [facility] [address] [place] [address] [place] [address] Color Repairer: Edilson Crisostomo MD Benzodiazepine(s) Negative Normal NEG [facility] Comment on above: Performed By: #### D AU #### [facility] [address] [place] [address] [place] [address] Color Repairer: Edilson Crisostomo MD Buprenorphrine, Ur Negative Normal NEG [facility] Comment on above: Performed By: #### D AU #### [facility] [address] [place] [address] Dr[place], [place] [id number] Color Repairer: Edilson Crisostomo MD Cannabinoid(s),Ur Negative Normal [facility] Comment on above: Performed By: #### D AU #### [facility] [address] [place], [place] [id number] Color Repairer: Edilson Crisostomo MD Cocaine Metabolite Negative Normal [facility] Comment on above: Performed By: #### D AU #### [facility] [address] [place], [place] [id number] Color Repairer: Edilson Crisostomo MD Methadone Ql (U) Negative Normal [facility] Comment on above: Performed By: #### D AU #### [facility] [address] [place] [address] [address], [place] [id number] Color Repairer: Edilson Crisostomo MD Methamphetamine, Ur Negative Normal [facility] Comment on above: Performed By: #### D AU #### [facility] [address] [place] [address] Color Repairer: Edilson Crisostomo MD Opiate(s), Ur Negative Normal [facility] Comment on above: Performed By: #### D AU #### [facility] [address] [place] [address] [place], [place] [id number] Color Repairer: Edilson Crisostomo MD Oxycodone, Urine Negative Normal NEG [facility] Comment on above: Performed By: #### D AU #### [facility] [address] [place], [place] [id number] Color Repairer: Edilson Crisostomo MD Phencyclidine, Ur Negative Normal [facility] Comment on above: Performed By: #### D AU #### [facility] [address] [place], [place] [id number] Color Repairer: Edilson Crisostomo MD Propoxyphene,Urine Negative Normal NEG [facility] Comment on above: Performed By: #### D AU #### [facility] [address] [place] [address] Color Repairer: Edilson Crisostomo MD Tricyclic antidepressants Screen Ql (U) Negative Normal NEG [facility] Comment on above: Result Comment: Drug screen results are to be used for medical purposes only. All positive results are unconfirmed. Testing for employment or legal uses should be sent to a reference laboratory for confirmation. Performed By: #### D AU #### [facility] [address] [place], [place] [address] Color Repairer: Edilson Crisostomo MD Interpretive Info NOT REPORTED Normal [facility] Comment on above: Performed By: #### D AU #### [facility] [address] [place] [address] [place] [address] Color Repairer: Edilson Crisostomo MD MDMA, Urine NOT REPORTED Normal NEG [facility] Comment on above: Performed By: #### D AU #### [facility] [address] [place] [address] Color Repairer: Edilson Crisostomo MD Urinalysison 03-19-2021 Bilirubin Urine Negative NEGATIVE [facility] [place] [facility] Color, UA Yellow Yellow [facility] Glucose, Ur Negative NEGATIVE [facility] Ketones Ql (U) Negative NEGATIVE [facility] Leukocyte esterase Test strip Ql (U) Negative NEGATIVE [facility] Nitrite, Urine Negative NEGATIVE [facility] pH, UA 7.0 [facility] Protein, UA Negative NEGATIVE [facility] Specific [place], UA 1.020 [facility] Turbidity UA Clear Clear [facility] Urinalysis Comments NOT REPORTED [facility] Urine Hgb Negative NEGATIVE [facility] Urobilinogen, Urine Normal Normal [facility] Urinalysis, Routineon 2021 Bilirubin, SemiQt,Ur Negative Normal NEG [facility] Comment on above: Performed By: #### U A #### [facility] [address] [place] [address] Color Repairer: Edilson Crisostomo MD Blood, Urine Negative Normal NEG [facility] Comment on above: Performed By: #### U A #### [facility] [address] [place] [address] [place], [place] [id number] Color Repairer: Edilson Crisostomo MD Clarity (U) Clear Normal CLEAR [facility] Comment on above: Performed By: #### U A #### [address] [place], [facility] Color Repairer: Edilson Crisostomo MD Color (U) Yellow Normal YEL [facility] Comment on above: Performed By: #### U A #### [address] [place], [facility] Color Repairer: Edilson Crisostomo MD Glucose Ql (U) Negative Normal NEG [facility] Comment on above: Performed By: #### U A #### [address] [place], [facility] Color Repairer: Edilson Crisostomo MD Ketones Ql (U) Negative Normal NEG [facility] Comment on above: Performed By: #### U A #### [address] [place], [facility] Color Repairer: Edilson Crisostomo MD Leukocyte esterase Test strip Ql (U) Negative Normal NEG [facility] Comment on above: Performed By: #### U A #### [address] [place], [facility] Color Repairer: Edilson Crisostomo MD Nitrite,Ur Negative Normal NEG [facility] Comment on above: Performed By: #### U A #### [address] [place] [address] Color Repairer: Edilson Crisostomo MD PH,Ur 7.0 Normal 5.0-9.0 [facility] Comment on above: Performed By: #### U A #### [address] [place], [place] [id number] Color Repairer: Edilson Crisostomo MD Protein Ql (U) Negative Normal NEG [facility] Comment on above: Performed By: #### U A #### [facility] [address] [place], [place] [id number] Color Repairer: Edilson Crisostomo MD Spec. [place],Ur 1.020 Normal 1.010-1.020 [facility] Comment on above: Performed By: #### U A #### [facility] [address] [place] [address] Color Repairer: Edilson Crisostomo MD Urobilinogen,Ur Normal Normal NORM [facility] Comment on above: Performed By: #### U A #### [facility] [address] [place] [address] Dr[place], [place] [id number] Color Repairer: Edilson Crisostomo MD Comment NOT REPORTED Normal [facility] Comment on above: Performed By: #### U A #### [facility] [address] [place] [address] [place], [place] [id number] Color Repairer: Edilson Crisostomo MD CBC auto differentialon 02-26 Absolute Eos # 0.10 [facility] th Absolute Immature Granulocyte 0.04 [facility] Absolute Lymph # 1.33 [facility] Absolute [place] # 0.77 [facility] Basophils (Bld) [#/Vol] 0.03 10*3/uL [facility] Basophils/100 WBC (Bld) 0 % 0 - 2 % [facility] Differential Type NOT REPORTED [facility] Eosinophils/100 WBC (Bld) 1 % 1 - 4 % [facility] Hematocrit (Bld) [Volume fraction] 30.1 % Low 36.3 - 47.1 % [facility] Hemoglobin.gastrointest inal spec 1 Ql (Stl) 9.0 g/dL Low 11.9 - 15.1 g/dL [facility] Immature granulocytes/100 WBC (Bld) 0 % 0 [facility] Interpretation and review of laboratory results Abnormal [facility] Lymphocytes/100 WBC (Bld) 12 % Low 25 - 45 % [facility] MCH (RBC) [Entitic mass] 22.3 pg Low 25.0 - 35.0 pg [facility] MCHC (RBC) [Mass/Vol] 29.9 g/dL 28.4 - 34.8 g/dL [facility] MCV (RBC) [Entitic vol] 74.7 fL Low 78.0 - 102.0 fL [facility] Monocytes/100 WBC (Bld) 7 % 2 - 8 % M [facility] NRBC Automated 0.0 0.0 per 100 WBC [facility] Platelet distribution width (Bld) [Ratio] 17.0 % High 11.8 - 14.4 % [facility] Platelet Estimate NOT REPORTED [facility] Platelet mean volume (Bld) [Entitic vol] 10.0 fL 8.1 - 13.5 fL [facility] Platelets (Bld) [#/Vol] 261 10*3/uL [facility] RBC (Bld) [#/Vol] 4.03 10*6/uL 3.95 - 5.1 1 m/uL [facility] RBC (Bld) [#/Vol] NOT REPORTED [facility] Segmented neutrophils/100 WBC (Bld) 80 % High 34 - 64 % [facility] Segs Absolute 8.60 High [facility] (Bld) [#/Vol] 10.9 10*3/uL [facility] WBC (Bld) [#/Vol] NOT REPORTED [facility] CBC with Diffon 03-18-2021 Abs. Basophil 0.03 k/uL Normal 0.00-0.20 [facility] Comment on above: Performed By: #### C DP #### [facility] [address] [place] [address] Color Repairer: Edilson Crisostomo MD Abs.Imm.Granulocyte 0.04 k/uL Normal 0.00-0.30 [facility] Comment on above: Performed By: #### C DP #### [facility] [address] [place] [address] Color Repairer: Edilson Crisostomo MD Abs.Neutrophil (Seg) 8.60 k/uL High 1.80-8.00 [facility] Comment on above: Performed By: #### C DP #### [facility] [address] [place] [address] Color Repairer: Edilson Crisostomo MD Basophils/100 WBC (Bld) 0 % Normal 0-2 M [facility] Comment on above: Performed By: #### C DP #### [facility] [address] [place], [facility] Color Repairer: Edilson Crisostomo MD Eosinophils (Bld) [#/Vol] 0.10 10*3/uL Normal 0.00-0.44 [facility] Comment on above: Performed By: #### C DP #### [address] [place] [address] Color Repairer: Edilson Crisostomo MD Eosinophils/100 WBC (Bld) 1 % Normal 1-4 [facility] Comment on above: Performed By: #### C DP #### [address] [place], [facility] Color Repairer: Edilson Crisostomo MD Erythrocyte distribution width (RBC) [Ratio] 17.0 % High 11.8-14.4 [facility] Comment on above: Performed By: #### C DP #### [address] [place], [facility] Color Repairer: Edilson Crisostomo MD Hematocrit (Bld) [Volume fraction] 30.1 % Low 36.3-47.1 [facility] Comment on above: Performed By: #### C DP #### [address] [place] [address] Color Repairer: Edilson Crisostomo MD Hemoglobin (Bld) [Mass/Vol] 9.0 g/dL Low 11.9-15.1 [facility] Comment on above: Performed By: #### C DP #### [address] [place] [address] Color Repairer: Edilson Crisostomo MD Immature granulocytes/100 WBC (Bld) 0 % Normal 0 [facility] Comment on above: Performed By: #### C DP #### [facility] [address] [place] [address] Dr[place], [facility] Color Repairer: Edilson Crisostomo MD Lymphocytes (Bld) [#/Vol] 1.33 10*3/uL Normal 1.20-5.20 [facility] Comment on above: Performed By: #### C DP #### [address] [place], [facility] Color Repairer: Edilson Crisostomo MD Lymphocytes/100 WBC (Bld) 12 % Low 25-45 [facility] Comment on above: Performed By: #### C DP #### [address] [place], [facility] Color Repairer: Edilson Crisostomo MD MCH (RBC) [Entitic mass] 22.3 pg Low 25.0-35.0 [facility] Comment on above: Performed By: #### C DP #### [address] [place], [facility] Color Repairer: Edilson Crisostomo MD MCHC (RBC) [Mass/Vol] 29.9 g/dL Normal 28.4-34.[address] [facility] Comment on above: Performed By: #### C DP #### [address] [place], [facility] Color Repairer: Edilson Crisostomo MD MCV (RBC) [Entitic vol] 74.7 fL Low 78.0-102.0 M [facility] Comment on above: Performed By: #### C DP #### [address] [place], [facility] Color Repairer: Edilson Crisostomo MD Monocytes (Bld) [#/Vol] 0.77 10*3/uL Normal 0.10-1.40 [facility] Comment on above: Performed By: #### C DP #### [facility] [address] [place], [place] [id number] Color Repairer: Edilson Crisostomo MD Monocytes/100 WBC (Bld) 7 % Normal 2-8 M [facility] Comment on above: Performed By: #### C DP #### [facility] [address] [place], [place] [id number] Color Repairer: Edilson Crisostomo MD Neutrophil (Seg) 80 % High 34-64 [facility] Comment on above: Performed By: #### C DP #### [facility] [address] [place], [place] [id number] Color Repairer: Edilson Crisostomo MD NRBC Automated 0.0 per 100 WBC Normal 0.0 [facility] Comment on above: Performed By: #### C DP #### [address] [place], [place] [id number] Color Repairer: Edilson Crisostomo MD Platelet mean volume (Bld) [Entitic vol] 10.0 fL Normal 8.1-13.5 [facility] Comment on above: Performed By: #### C DP #### [address] [place], [place] [id number] Color Repairer: Edilson Crisostomo MD Platelets (Bld) [#/Vol] 261 10*3/uL Normal 138-453 [facility] Comment on above: Performed By: #### C DP #### [facility] [address] [place], [place] [address]33[address]83 Color Repairer: Edilson Crisostomo MD RBC (Bld) [#/Vol] 4.03 10*6/uL Normal 3.95-5.11 [facility] Comment on above: Performed By: #### C DP #### [facility] [address] [place] [address] Color Repairer: Edilson Crisostomo MD WBC (Bld) [#/Vol] 10.9 10*3/uL Normal 4.5-13.5 [facility] Comment on above: Performed By: #### C DP #### [facility] [address] [place], [place] 207[address]83 Color Repairer: Edilson Crisostomo MD Auto Diff Performed NOT REPORTED Normal [facility] Comment on above: Performed By: #### C DP #### [facility] [address] [place] [address] Color Repairer: Edilson Crisostomo MD Platelet Comment NOT REPORTED Normal [facility] Comment on above: Performed By: #### C DP #### [facility] [address] [place] [address] Color Repairer: Edilson Crisostomo MD RBC morphology finding Nom (Bld) NOT REPORTED Normal [facility] Comment on above: Performed By: #### C DP #### [facility] [address] [place] [address] Color Repairer: Edilson Crisostomo MD WBC Morphology NOT REPORTED Normal [facility] Comment on above: Performed By: #### C DP #### [facility] [address] [place], [place] 4253183 Color Repairer: Edilson Crisostomo MD GBS, External Resulton 03-06 GBS, External Result Negative [facility] [employer] Phone: [facility] [employer] Phone: Q - STREPTOCOCCUS,GROUP B CU LTUREon 03-03-2021 STREPTOCOCCUS, GROUP B CULTURE SEE NOTE Normal [facility] Comment on above: Order Comment: [facility] performed at: Q[facility], [employer] [facility], [address] [place] [address], [address] [place] [address], [place], [address], Vector Control Assistant: Nathan Briggs MD [facility] Collection Date/Time: [facility] Results Received Date/Time: [facility] Reported Date/Time: Result Comment: STRE PTOCOCCUS, GROUP B CULTURE Micro Number: [id number] Test Status: Final Specimen Source: Vaginal/rectal Specimen Quality: Adequate Result: No group B Streptococcus isolated Note per CDC guidelines optimal recovery is achieved by swabbing both the lower vagina and rectum (through the anal sphincter). Performed By: #### 5 [id number] #### [facility] [address] [place] [address] ABO, External Resulton 09-05 ABO, External Result [employer] Work Phone: HIV, External Resulton 09-05 HIV, External Result Non-Reactive [employer] Work Phone: Hepatitis B, External Result on 09-05-2020 Hep B, External Result Negative [employer] Phone: Hepatitis C Antibody, Studio Artist al Resulton 09-05-2020 Hepatitis C Antibody, External Result Non-Reactive [employer] Phone: No Panel Informationon 09-05 [email or web address] Phone: RPR, External Labon 09-06-19 21 RPR, External Result Negative [employer] Phone: Rh Factor, External Resulton 09-05-2020 Rh Factor, External Result Positive [email or web address] Phone: Rubella Titer, External Resu lton 09-05-2020 Rubella Titer, External Result 1.2 (Immune) [employer] Phone: C. Trachomatis, External Res ulton 08-10-2020 C. Trachomatis, External Result Negative [email or web address] Phone: N. Gonorrhoeae, External Res ulton 08-10-2020 N. Gonorrhoeae, External Result Negative [email or web address] Phone: No Panel Informationon 08-10 [email or web address] Phone: CHLAMYDIA/GONOCOCCUS JANNET (SW AB/URINE/PAPon 02-06-2020 Chlamydia trachomatis, JANNET Negative Normal Negative [facility] Comment on above: Performed By: #### C T/NGNA #### [facility] [address] [place], [place] [address] Nai Lama Neisseria gonorrhoeae, JANNET Negative Normal Negative [facility] Comment on above: Performed By: #### C T/NGNA #### [facility] [address] [place], [place] [address] Nai Lama Vital Signs Date Time Vital Sign Value Performing Clinician Faci lity 11-18-2024 13:47-0400 Body mass index (BMI) [Ratio] 19.64 kg/m2 Ronny Janina DO Work Phone: [facility] 11-18-2024 13:47-0400 Body weight 48.72 kg Ronny Janina DO Work Phone: [facility] 11-18-2024 13:47-0400 Diastolic blood pressure 68 mm[Hg] Ronny Janina DO Work Phone: [facility] 11-18-2024 13:47-0400 Systolic blood pressure 98 mm[Hg] Ronny Janina DO Work Phone: [facility] 10-19-2024 17:22-0400 Body mass index (BMI) [Ratio] 18.66 kg/m2 Asher Floro CNM Work Phone: [facility] [facility] 10-19-2024 17:22-0400 Body weight 46.27 kg Asher Floro CNM Work Phone: [facility] 09-28-2024 17:04-0400 Body height 157.5 cm Asher Floro CNM Work Phone: [facility] 09-28-2024 17:03-0400 Body mass index (BMI) [Ratio] 18.66 kg/m2 Asher Floro CNM Work Phone: [facility] 09-28-2024 17:03-0400 Body weight 46.27 kg Asher Floro CNM Work Phone: [facility] 09-28-2024 17:03-0400 Diastolic blood pressure 80 mm[Hg] Asher Joelo CNM Work Phone: [facility] 09-28-2024 17:03-0400 Systolic blood pressure 118 mm[Hg] Asher Joelo CNM Work Phone: [facility] 03-20-2021 11:29-0500 Body temperature 97.2 [degF] Connie Hotelling ICT ANALYST - CNM Work Phone: [facility] 03-20-2021 11:29-0500 Diastolic blood pressure 55 mm[Hg] Connie Hotelling ICT ANALYST - CNM Work Phone: [facility] 03-20-2021 11:29-0500 Heart rate 84 /min Connie Hotelling ICT ANALYST - CNM Work Phone: [facility] 03-20-2021 11:29-0500 Respiratory rate 18 /min Connie Hotelling ICT ANALYST - CNM Work Phone: [facility] 03-20-2021 11:29-0500 Systolic blood pressure 90 mm[Hg] Connie Hotelling ICT ANALYST - CNM Work Phone: [facility] Encounters Encounter Date Encounter Type Care Provider Facility Start: 12-14-2024 End: 12-14-2024 Bamboo flowsheet Jeannette RICHARDSON Work Phone: [facility] Start: 12-14-2024 End: 12-14-2024 Bamboo flowsowen RICHARDSON Work Phone: [facility] Start: 11-27-2024 End: 11-27-2024 Telephone encounter Lee Meadows Maternal- Medicine at [facility] Comment on above: Monochorionic diamni otic twin gestation in second trimester (Primary Dx) Start: 11-25-2024 End: 11-25-2024 [facility] Start: 11-23-2024 End: 11-23-2024 Chart abstracting Scanning Provider External Maternal- Medicine at [facility] Start: 11-20-2024 End: 11-20-2024 Orders Only Teresa Mercado RN Maternal- Medicine at [facility] Comment on above: Monochorionic diamni otic twin gestation in second trimester (Primary Dx) Start: 11-18-2024 End: 11-18-2024 Bamboo flowsheet Ronny Janina DO Work Phone: [facility] Start: 11-18-2024 End: 11-18-2024 Bamboo flowsheet Ronny Janina DO Work Phone: [facility] Start: 11-18-2024 End: 11-18-2024 ambulatory RONNY JANINA Not Available Start: 11-18-2024 End: 11-18-2024 flow sheet Ronny Janina DO Work Phone: [facility] Comment on above: examinatio n or test, positive result ([facility]); Monochorionic diamniotic twin , antepartum ([facility]) Start: 10-19-2024 End: 10-19-2024 ambulatory ASHER L FLORO Not Available Start: 10-19-2024 End: 10-19-2024 Subsequent care visit Asheryogesh Joelo CNM Work Phone: [facility] Comment on above: examinatio n or test, positive result ([facility]) (Primary Dx); Monochorionic diamniotic twin gestation in first trimester ([facility]) Start: 10-19-2024 End: 10-19-2024 Bamboo flowsheet Asher L Floro CNM Work Phone: [facility] Start: 10-19-2024 End: 10-19-2024 Bamboo flowsheet Asher L Floro CNM Work Phone: [facility] Start: 10-13-2024 End: 10-13-2024 Clinisync Result Encounter Asher Buck CNM Work Phone: [facility] Unsolicited Start: 10-13-2024 End: 10-13-2024 Clinisync Result Encounter Asher Buck CNM Work Phone: [facility] Unsolicited Start: 10-07-2024 End: 10-07-2024 Emergency department patient visit [facility] Start: 09-28-2024 End: 09-28-2024 Initial care visit Asher Buck CNM Work Phone: [facility] Comment on above: GA: 9w2d Start: 09-28-2024 End: 09-28-2024 ambulatory ASHER BUCK Not Available Start: 04-17-2024 End: 04-18-2024 Emergency department patient visit [facility] Start: 03-31-2024 End: 03-31-2024 Clinisync Result Encounter Asher Buck CNM Work Phone: [facility] External Department Unsolicited Start: 03-31-2024 End: 03-31-2024 Clinisync Result Encounter Asher Buck CNM Work Phone: [facility] External Department Unsolicited Start: 03-17-2024 End: 03-17-2024 Emergency department patient visit [facility] Start: 01-16-2024 End: 02-24-2024 Telephone encounter Asher Buck CNM Work Phone: [facility] Start: 03-18-2021 End: 03-20-2021 Evaluation and management of inpatient ERASTO Danielson [facility] Start: 03-18-2021 End: 03-20-2021 Evaluation and management of inpatient Connie Toshia Lizarraga ICT ANALYST - CNM Work Phone: [facility] Labor and Delivery Start: 02-04-2020 End: 02-04-2020 Patient encounter procedure HUYEN MENDOSA Facility: Procedures Date Procedure Procedure Detail Performing Clinician Start: 10-13-2024 BOX TEST Asher Joelo CNM Work Phone: Start: 10-05-2024 Antibody screen Scannin g External Start: 10-05-2024 Hemoglobin glycosyla saleem a1c Scanning Provider External Start: 10-05-2024 Hepatitis c antibody No t In System Ref Prov Start: 10-05-2024 HIV 1&2 AB/AG SCREEN (P24 AG) Not In System Ref Prov Start: 10-05-2024 Iaad ia hepatitis b surface antigen Not In System Ref Prov Start: 10-05-2024 TYPE AND SCREEN Not In System Ref Prov Start: 03-31-2024 US OB TRANSVAGINAL Kavitha Mae Floro CNM Work Phone: Start: 03-18-2021 Drug screen class list a Connie Liconaelling ICT ANALYST - CNM Work Phone: Start: 03-18-2021 Urnls dip stick/tabl et rgnt auto w/o microscopy Connie Pope Hotelling ICT ANALYST - CNM Work Phone: Start: 03-18-2021 Blood count complete auto&auto difrntl wbc Connie P Monaeelling ICT ANALYST - CNM Work Phone: Start: 03-06-2021 GBS, EXTERNAL RESULT Va serjio Joelo ICT ANALYST - CNM Work Phone: Start: 09-05-2020 ABO, EXTERNAL RESULT Va lertri Floro ICT ANALYST - CNM Work Phone: Start: 09-05-2020 Antibody screen Connie duke ICT ANALYST - CNM Work Phone: Start: 09-05-2020 HEPATITIS B, EXTERNA L RESULT Asher Joelo ICT ANALYST - CNM Work Phone: Start: 09-05-2020 HEPATITIS C ANTIBODY , EXTERNAL RESULT Asher Marycruzo ICT ANALYST - CNM Work Phone: Start: 09-05-2020 HIV, EXTERNAL RESULT Va lertri Floro ICT ANALYST - CNM Work Phone: Start: 09-05-2020 Obstetric panel Histori yosvany Provider Start: 09-05-2020 RH FACTOR, EXTERNAL RESULT Asher Buck ICT ANALYST - CNM Work Phone: Start: 09-05-2020 RPR, EXTERNAL RESULT Va serjio Buck ICT ANALYST - CNM Work Phone: Start: 09-05-2020 RUBELLA TITER, EXTER NAL RESULT Asher Buck ICT ANALYST - CNM Work Phone: Start: 08-10-2020 C. TRACHOMATIS, EXTE RNAL RESULT Asher Buck ICT ANALYST - CNM Work Phone: Start: 08-10-2020 N. GONORRHOEAE, EXTE RNAL RESULT Asher Buck ICT ANALYST - CNM Work Phone: Plan of Treatment Date Care Activity Detail Author Start: 11-27-2025 End: 11-27-2025 US MFM with or without consult US MFM with or without consult Imaging Routine Monochorionic diamniotic twin gestation in second trimester Expected: 11/27/2025 (Approximate), Expires: 11/27/2025 [facility] Work Phone: Comment on above: Expected: 11/27/2025 (Approximate), Expires: 11/27/2025 Start: 10-07-2025 Adult BMI Screening Adult BMI Screen ing [facility] Start: 10-07-2025 Tobacco Screening Tobacco Screening [facility] Start: 01-20-2025 End: 01-20-2025 Patient encounter procedure 01/20/2025 1:00 PM EST Appointment [facility] [address] [place] [id number] [facility] Start: 01-05-2025 End: 01-05-2025 Patient encounter procedure 01/05/2025 3:15 PM EST Appointment [facility] [address] [place] [id number] [facility] Start: 12-23-2024 End: 12-23-2024 Patient encounter procedure [facility] Start: 12-20-2024 End: 11-20-2025 US [facility] with or without consult US [facility] with or without consult Imaging Routine Monochorionic diamniotic twin gestation in second trimester Expected: 12/20/2024 (Approximate), Expires: 11/20/2025 [facility] Work Phone: Comment on above: Expected: 12/20/2024 (Approximate), Expires: 11/20/2025 Start: 12-09-2024 End: 12-09-2024 Patient encounter procedure 12/09/2024 10:30 AM EDT Routine [facility] [address] [place] [address] Jeannette Grijalva PA [address] [place] [address] [facility] Start: 12-08-2024 End: 12-08-2024 Patient encounter procedure 12/08/2024 9:15 AM EDT Appointment [facility] [address] [place] [phone] [facility] Start: 11-25-2024 End: 11-25-2024 Patient encounter procedure 11/25/2024 1:00 PM EDT Appointment [facility] [address] [place] [phone] [facility] Start: 11-18-2024 End: 11-18-2024 Patient encounter procedure 11/18/2024 1:40 PM EDT Routine [facility] [address] [place] [phone] Ronny Roa DO [address] [place] [address] [facility] Start: 10-26-2024 Influenza vaccination [facility] Start: 10-19-2024 End: 10-19-2024 Patient encounter procedure 10/19/2024 5:15 PM EDT Routine [facility] [place] [facility] [address] [place] [address] Asher Buck CNM [address] [place] [address] [facility] Start: 09-28-2024 End: 09-28-2025 ABO/Rh ABO/Rh Lab Routine examination or test, positive result ([facility]) Expected: 09/28/2024 (Approximate), Expires: 09/28/2025 [facility] Comment on above: Expected: 09/28/2024 (Approximate), Expires: 09/28/2025 Start: 09-28-2024 End: 09-28-2025 Antibody screen Antibody screen Lab Routine examination or test, positive result ([facility]) Expected: 09/28/2024 (Approximate), Expires: 09/28/2025 [facility] Comment on above: Expected: 09/28/2024 (Approximate), Expires: 09/28/2025 Start: 09-28-2024 End: 09-28-2025 Bacteria identified in Urine by Culture Urine culture Microbiology Routine examination or test, positive result ([facility]) Expected: 09/28/2024 (Approximate), Expires: 09/28/2025 [facility] Comment on above: Expected: 09/28/2024 (Approximate), Expires: 09/28/2025 Start: 09-28-2024 End: 09-28-2025 CBC panel - Blood by Automated count CBC Lab Routine examination or test, positive result ([facility]) Expected: 09/28/2024 (Approximate), Expires: 09/28/2025 [facility] Comment on above: Expected: 09/28/2024 (Approximate), Expires: 09/28/2025 Start: 09-28-2024 End: 09-28-2025 DRUG TOX MONITORIGN 6 W/ CONF,URINE DRUG TOX MONITORIGN 6 W/ CONF,URINE Lab Routine examination or test, positive result ([facility]) Expected: 09/28/2024 (Approximate), Expires: 09/28/2025 [facility] Comment on above: Expected: 09/28/2024 (Approximate), Expires: 09/28/2025 Start: 09-28-2024 End: 09-28-2025 Hemoglobin A1c/Hemoglobin.total in Blood Hemoglobin A1c Lab Routine examination or test, positive result ([facility]) Expected: 09/28/2024 (Approximate), Expires: 09/28/2025 [facility] Comment on above: Expected: 09/28/2024 (Approximate), Expires: 09/28/2025 Start: 09-28-2024 End: 09-28-2025 Hepatitis B virus surface Ag [Presence] in Serum or Plasma by Immunoassay Hepatitis B surface antigen Lab Routine examination or test, positive result ([facility]) Expected: 09/28/2024 (Approximate), Expires: 09/28/2025 [facility] Work Phone: Comment on above: Expected: 09/28/2024 (Approximate), Expires: 09/28/2025 Start: 09-28-2024 End: 09-28-2025 Hepatitis C virus Ab [Presence] in Serum or Plasma by Immunoassay Hepatitis C antibody Lab Routine examination or test, positive result ([facility]) Expected: 09/28/2024 (Approximate), Expires: 09/28/2025 [facility] Comment on above: Expected: 09/28/2024 (Approximate), Expires: 09/28/2025 Start: 09-28-2024 End: 09-28-2025 HIV-1/HIV-2 antigen/antibody combination immunoassay HIV-1 and HIV-2 antibodies Lab Routine examination or test, positive result ([facility]) Expected: 09/28/2024 (Approximate), Expires: 09/28/2025 [facility] Comment on above: Expected: 09/28/2024 (Approximate), Expires: 09/28/2025 Start: 09-28-2024 End: 09-28-2025 Neisseria gonorrhoeae DNA [Presence] in Cervical mucus by JANNET with probe detection C. trachomatis / N. gonorrhoeae, DNA probe Pathology and Cytology Routine examination or test, positive result ([facility]) Expected: 09/28/2024 (Approximate), Expires: 09/28/2025 [facility] Comment on above: Expected: 09/28/2024 (Approximate), Expires: 09/28/2025 Start: 09-28-2024 End: 09-28-2025 Reagin Ab [Presence] in Serum by RPR RPR Lab Routine examination or test, positive result ([facility]) Expected: 09/28/2024 (Approximate), Expires: 09/28/2025 [facility] Comment on above: Expected: 09/28/2024 (Approximate), Expires: 09/28/2025 Start: 09-28-2024 End: 09-28-2025 Rubella antibody, IgG Rubella antibody, IgG Lab Routine examination or test, positive result ([facility]) Expected: 09/28/2024 (Approximate), Expires: 09/28/2025 [facility] Comment on above: Expected: 09/28/2024 (Approximate), Expires: 09/28/2025 Start: 09-28-2024 End: 09-28-2025 TSH W/REFLEX TO FT4 TSH W/REFLEX TO FT4 Lab Routine examination or test, positive result ([facility]) Expected: 09/28/2024 (Approximate), Expires: 09/28/2025 [facility] Comment on above: Expected: 09/28/2024 (Approximate), Expires: 09/28/2025 Start: 09-28-2024 End: 09-28-2025 URINALYSIS MICROSCOPIC URINALYSIS MICROSCOPIC Lab Routine examination or test, positive result ([facility]) Expected: 09/28/2024 (Approximate), Expires: 09/28/2025 [facility] Comment on above: Expected: 09/28/2024 (Approximate), Expires: 09/28/2025 Start: 08-09-2024 DTaP,Tdap and Td Vaccines (7 - Td or Tdap) DTaP,Tdap and Td Vaccines (7 - Td or Tdap) [facility] Start: 04-03-2024 End: 04-03-2024 ambulatory 04/03/2024 10:30 AM EST Initial [facility] [address] [place] [address] [facility] Start: 10-27-2023 Influenza vaccination Influenza Vacc ine (#1) [facility] Start: 06-14-2023 Screening for malign ant neoplasm of cervix Pap Smear [facility] Start: 08-10-2021 Screening for Chlamy dianelys trachomatis Chlamydia Screening [facility] Start: 10-26-2020 Influenza vaccination Flu vaccine (# 1) [facility] Start: 2018 Meningococcal (ACWY) vaccine (1 - 2-dose series) Meningococcal (ACWY) vaccine (1 - 2-dose series) [facility] Start: 2018 Screening for Chlamy dianelys trachomatis Chlamydia screen [facility] Start: 2017 HIV screening HIV screen [facility] Start: 2014 Depression Screen Depression Screen [facility] Start: 2014 Depression Screening Depression Scre ening [facility] Start: 2013 HPV vaccine (1 - 2-d ose series) HPV vaccine (1 - 2-dose series) [facility] Start: 2009 DTaP/Tdap/Td vaccine (1 - Tdap) DTaP/Tdap/Td vaccine (1 - Tdap) [facility] Start: 06-14-2007 COVID-19 Vaccine (1) COVID-19 Vaccin e (1) [facility] Start: 06-14-2003 Hepatitis A vaccine (1 of 2 - 2-dose series) Hepatitis A vaccine (1 of 2 - 2-dose series) [facility] Start: 06-14-2003 Measles,Mumps,Rubell a (MMR) vaccine (1 of 2 - Standard series) Measles,Mumps,Rubella (MMR) vaccine (1 of 2 - Standard series) [facility] Start: 06-14-2003 Varicella vaccine (1 of 2 - 2-dose childhood series) Varicella vaccine (1 of 2 - 2-dose childhood series) [facility] Start: 2002 Hepatitis B vaccine (1 of 3 - 3-dose primary series) Hepatitis B vaccine (1 of 3 - 3-dose primary series) [facility] Start: 2002 Hepatitis C screening Hepatitis C sc reen [facility] Immunizations Immunization Date Immunization Notes Care Provider Darien rodriguez 03-19-2021 diphtheria, tetanus toxoids and acellular pertussis vaccine, unspecified formulation Connie Lizarraga ICT ANALYST - CNM Work Phone: [facility] Work Phone: 03-19-2021 measles, mumps and rubella virus vaccine Connie Lizarraga ICT ANALYST - CNM Work Phone: [facility] Work Phone: 12-27-2011 influenza virus vaccine, unspecified formulation Asher Buck CNM Work Phone: [facility] Payers Date Payer Category Payer [facility] [id number] 2024 [facility] - Other [employer] [id number] 2024 Unknown [id number] 2021 Unknown [id number] 2002 Unknown [id number] 173 2002 Unknown [id number] 1286 2002 Unknown [id number] 1286 2002 Unknown [id number] 1286 2002 Unknown [id number] 1259 2002 Unknown [id number]. 1259 2002 Unknown [id number] 1259 2002 Unknown [id number]. 1259 2002 Unknown [id number] 1286 1988 Unknown [id number] 1959 Unknown [id number] Social History Date Type Detail Facility Start: 07-31-2011 End: 09-28-2024 Tobacco smoking status WVIS Never smoked tobacco [facility] Start: 03-19-2021 Alcohol intake Not Asked [facility] [email or web address] Work Phone: Start: 2002 Sex Assigned At Not on file [facility] Work Phone: Exposure to SARS-CoV -2 (event) Not sure [facility] Tobacco smoking stat [facility] Tobacco smoking consumption unknown [facility] Start: 04-06-2020 End: 09-28-2024 Gender identity Not on file [facility] Start: 03-12-2017 End: 09-28-2024 Tobacco use and exposure Smokeless tobacco non-user [facility] Start: 09-28-2024 End: 11-23-2024 Alcoholic beverage intake Ex-drinker (finding) [facility] Start: 04-06-2020 End: 09-28-2024 History of Social function [facility] Start: 08-08-2024 [facility] Start: 05-09-2022 How hard is it for y ou to pay for the very basics like food, housing, medical care, and heating Not hard at all [facility] Start: 09-28-2014 Sex Female (finding) [facility] Clinical Notes 03-20-2021 to 11-27-2024 [facility] - 11/27/2024 11:36 AM EDTTelephone Encounter - [facility] Abdiel - 11/27/2024 11:36 AM Ary Robins LPN - 11/18/2024 1:40 PM EDT Note Date & Type Note Facility 11-27-2024 Miscellaneous Notes [employer] Iron[employer] Hand brigid for pt informing her of upcoming appt dates/times and requested a return call if she has any issues, but specified these appts don't have much flexibility. documented in this encounter [facility] 11-27-2024 Telephone encounter Note [facility] brigid for pt informing her of upcoming appt dates/times and requested a return call if she has any issues, but specified these appts don't have much flexibility. [facility] 11-18-2024 History of Presen t illness Narrative Reason for Appointment: Patient ID: Naye Parsons is a 24 y.o. female who presents for No chief complaint on file. Patient presents today for Return OB appointment. MEDICATIONS No current outpatient medications ALLERGIES No Known Allergies PROBLEMS Active Ambulatory Problems Diagnosis Date Noted No Active Ambulatory Problems Resolved Ambulatory Problems Diagnosis Date Noted No Resolved Ambulatory Problems No Additional Past Medical History HISTORY PAST MEDICAL HISTORY SOCIAL HISTORY No past medical history on file. Social History Tobacco Use Smoking status: Never Smokeless tobacco: Never Substance Use Topics Alcohol use: Not Currently Drug use: Not Currently Types: Marijuana FAMILY HISTORY No family history on file. SURGICAL HISTORY No past surgical history on file. REVIEW OF SYSTEMS Review of Systems: Review of Systems Constitutional: Negative. HENT: Negative. Eyes: Negative. Respiratory: Negative. Cardiovascular: Negative. Gastrointestinal: Negative. Genitourinary: Negative. Musculoskeletal: Negative. Skin: Negative. Neurological: Negative. All other systems reviewed and are negative. Hematological: Negative. Endocrine: Negative. Allergic/Immunologic: Negative. OBJECTIVE Objective: Physical Exam Constitutional: Appearance: Normal appearance. She is well-developed. Cardiovascular: Rate and Rhythm: Normal rate and regular rhythm. Pulmonary: Effort: Pulmonary effort is normal. Breath sounds: Normal breath sounds. Abdominal: General: Bowel sounds are normal. There is no distension. Palpations: Abdomen is soft. Tenderness: There is no abdominal tenderness. There is no guarding or rebound. Musculoskeletal: General: No swelling. Normal range of motion. Right lower leg: No edema. Left lower leg: No edema. Neurological: Mental Status: She is alert and oriented to person, place, and time. Skin: General: Skin is warm and dry. Psychiatric: Mood and Affect: Mood normal. Behavior: Behavior normal. Vitals and nursing note reviewed. Exam conducted with a soldering machine feeder present. Vitals: Estimated body mass index is 19.64 kg/m as calculated from the following: Height as of 25: 5' 2 . Weight as of this encounter: 107 lb 6.4 oz. BP: 98/68 Patient's last menstrual period was 07/25/2024. ASSESSMENT & PLAN ICD-10-CM 1. examination or test, positive result ([facility]) Z32.01 Ambulatory referral to Obstetrics / Gynecology 2. Monochorionic diamniotic twin , antepartum ([facility]) O30.039 New OB: Patient presents today for 1st time obstetrics appointment with provider. Patient is currently 16w4d . Patients history has been reviewed in great detail including any potential risks. Patient stated she currently has no complaints. Expectations throughout regarding labs, ultrasounds, and appointments have been discussed with the patient in detail. It was reiterated that the patient is to drink 6-8 glasses of water a day, eat 6 small meals a day, do not consume raw or undercooked meat, and stay away from [facility]. Patient has been consulted regarding any further do's and don'ts of . Patient voiced understanding and all questions and concerns were answered. Twin gestation- mono-di twins pt to be referred to [facility] for anatomy scan. Discussed twin twin transfusion. Pt has vaginal pain and pressure- discussed belly band. No orders of the defined types were placed in this encounter. Follow Up: Patient is to return in 4 weeks for routine OB appointment. Documented by Daina Robins LPN on behalf of: Ronny Roa DO documented in this encounter [facility] 10-19-2024 History of Presen t illness Narrative Subjective No chief complaint on file. Naye Parsons is a 24 y.o. at 12w2d with a working estimated date of delivery of 05/01/2025, by Last Menstrual Period who presents for a routine visit. She denies vaginal bleeding, leakage of fluid, decreased movements, or contractions. OB History Para Term AB Living 3 1 1 1 1 SAB IAB Ectopic Multiple Live Births 1 # Outcome Date GA Lbr Kenji/2nd Weight Sex Type Anes PTL Lv 3 Current 2 Term 03/19/21 39w0d 12:40 / 00:59 7 lb 13.6 oz M Vag-Spont N CRYSTAL 1 AB Her is complicated by: Twins The following portions of the chart were reviewed this encounter and updated as appropriate: Objective Physical Exam Weight: 102 lb Expected Total Weight Gain: 37 lb-55 lb Pregravid BMI: 18.65 Urine protein Urine glucose Labs: reviewed Imaging Assessment/Plan Diagnoses and all orders for this visit: examination or test, positive result (HHS-HCC) Monochorionic diamniotic twin gestation in first trimester (HHS-HCC) Continue vitamin. Labs reviewed. Rhogam GTT . Follow up in 2 weeks for a routine visit. documented in this encounter [facility] 09-28-2024 History of Presen t illness Narrative Subjective Naye Parsons is a 24 y.o. at 9w2d with a working estimated date of delivery of 05/01/2025, by Last Menstrual Period who presents for an initial visit. This is unplanned. Patient Care Team: [facility] Provider MD Syed as PCP - General (Family Medicine) OB History Para Term AB Living 3 1 1 1 1 SAB IAB Ectopic Multiple Live Births 1 # Outcome Date GA Lbr Kenji/2nd Weight Sex Type Anes PTL Lv 3 Current 2 Term 03/19/21 39w0d 12:40 / 00:59 7 lb 13.6 oz M Vag-Spont N CRYSTAL 1 AB Her is complicated by: nausea vomiting. Pt states she has lost 10lbs and vomits every day. Patient referred by Gynecology History Last Pap never had one The following portions of the chart were reviewed this encounter and updated as appropriate: Review of Systems Objective Physical Exam Weight: 102 lb Expected Total Weight Gain: 37 lb-55 lb Pregravid BMI: 18.65 Labs Assessment/Plan Diagnoses and all orders for this visit: examination or test, positive result ([facility]) - Hepatitis B surface antigen; Future - Rubella antibody, IgG; Future - CBC; Future - Antibody screen; Future - RPR; Future - Hemoglobin A1c; Future - TSH W/REFLEX TO FT4; Future - HIV-1 and HIV-2 antibodies; Future - ABO/Rh; Future - DRUG TOX MONITORIGN 6 W/ CONF,URINE; Future - Hepatitis C antibody; Future - Urine culture; Future - URINALYSIS MICROSCOPIC; Future - C. trachomatis / N. gonorrhoeae, DNA probe; Future - Ambulatory referral to Obstetrics / Gynecology; Future Blue education folder given. Patient educated on safe medication list. Genetic testing information given. Discussed the do's and don'ts in the blue folder. We discussed labs and what we draw and what we are testing for. Patient is also informed that we do a urine drug test. Patient also given office phone number and [facility] number to call in case of an emergency or after hours needs. PVU and all questions answered. We did discuss place of delivery. Patient should plan to go to [facility] for all services unless an emergency and they need to go to the closest ER. We can make other arrangements possibly if patient would like to deliver at another facility but I did explain I am now at [facility] 100% of the time and would like to do all deliveries there. documented in this encounter [facility] 01-17-2024 Telephone encounter Note Spoke with pt. Pt states that she did not take test. She was 2 weeks late on her period and then started bleeding and cramping. Per aleksey advised pt pt to monitor. If she starts bleeding heavier than a pad an hour to go to er. [facility] 01-17-2024 Miscellaneous Notes Spoke with pt. Pt states that she did not take test. She was 2 weeks late on her period and then started bleeding and cramping. Per aleksey advised pt pt to monitor. If she starts bleeding heavier than a pad an hour to go to er. Called pt left vm to call me back Pt thinks she may have had a miscarriage and would like to schedule an appt as soon as possible. documented in this encounter [facility] 01-16-2024 Telephone encounter Note Called pt left vm to call me back [facility] 01-16-2024 Telephone encounter Note Pt thinks she may have had a miscarriage and would like to schedule an appt as soon as possible. [facility] 03-20-2021 Hospital course Narrative Obstetrical Discharge Form Gestational Age:39w0d Antepartum complications: none Date of Delivery: 03/19/2021 Type of Delivery: Delivered By: Corry Buck APRN CNM Assisted By:N/A Baby: male Anesthesia: nubain Intrapartum complications: None Feeding method: breast Blood type: O+ Rubella: Immune T. Pallidium, IGG: No results found for: TREPG Hepatitis B Surface Antigen: No results found for: HEPBSAG HIV: NonReactive Results for orders placed or performed during the hospital encounter of 03/18/21 GBS, External Result Result Value Ref Range GBS, External Result negative C. Trachomatis, External Result Result Value Ref Range C. Trachomatis, External Result negative N. Gonorrhoeae, External Result Result Value Ref Range N. Gonorrhoeae, External Result negative Urinalysis Result Value Ref Range Color, UA Yellow Yellow Turbidity UA Clear Clear Glucose, Ur NEGATIVE NEGATIVE Bilirubin Urine NEGATIVE NEGATIVE Ketones, Urine NEGATIVE NEGATIVE Specific [place], UA 1.020 1.010 - 1.020 Urine Hgb NEGATIVE NEGATIVE pH, UA 7.0 5.0 - 9.0 Protein, UA NEGATIVE NEGATIVE Urobilinogen, Urine Normal Normal Nitrite, Urine NEGATIVE NEGATIVE Leukocyte Esterase, Urine NEGATIVE NEGATIVE Urinalysis Comments NOT REPORTED DRUG SCREEN MULTI URINE Result Value Ref Range Amphetamine Screen, Ur NEGATIVE NEGATIVE Barbiturate Screen, Ur NEGATIVE NEGATIVE Benzodiazepine Screen, Urine NEGATIVE NEGATIVE Cocaine Metabolite, Urine NEGATIVE NEGATIVE Methadone Screen, Urine NEGATIVE NEGATIVE Opiates, Urine NEGATIVE NEGATIVE Phencyclidine, Urine NEGATIVE NEGATIVE Propoxyphene, Urine NEGATIVE NEGATIVE Cannabinoid Scrn, Ur NEGATIVE NEGATIVE Oxycodone Screen, Ur NEGATIVE NEGATIVE Methamphetamine, Urine NEGATIVE NEGATIVE Tricyclic Antidepressants, Urine NEGATIVE NEGATIVE MDMA, Urine NOT REPORTED NEGATIVE Buprenorphine Urine NEGATIVE NEGATIVE Test Information NOT REPORTED CBC auto differential Result Value Ref Range WBC 10.9 4.5 - 13.5 k/uL RBC 4.03 3.95 - 5.11 m/uL Hemoglobin 9.0 (L) 11.9 - 15.1 g/dL Hematocrit 30.1 (L) 36.3 - 47.1 % MCV 74.7 (L) 78.0 - 102.0 fL MCH 22.3 (L) 25.0 - 35.0 pg MCHC 29.9 28.4 - 34.8 g/dL RDW 17.0 (H) 11.8 - 14.4 % Platelets 261 138 - 453 k/uL MPV 10.0 8.1 - 13.5 fL NRBC Automated 0.0 0.0 per 100 WBC Differential Type NOT REPORTED Seg Neutrophils 80 (H) 34 - 64 % Lymphocytes 12 (L) 25 - 45 % Monocytes 7 2 - 8 % Eosinophils % 1 1 - 4 % Basophils 0 0 - 2 % Immature Granulocytes 0 0 % Segs Absolute 8.60 (H) 1.80 - 8.00 k/uL Absolute Lymph # 1.33 1.20 - 5.20 k/uL Absolute [place] # 0.77 0.10 - 1.40 k/uL Absolute Eos # 0.10 0.00 - 0.44 k/uL Basophils Absolute 0.03 0.00 - 0.20 k/uL Absolute Immature Granulocyte 0.04 0.00 - 0.30 k/uL WBC Morphology NOT REPORTED RBC Morphology NOT REPORTED Platelet Estimate NOT REPORTED PROFILE I Result Value Ref Range Antibody Screen negative Hepatitis C Antibody, External Result Result Value Ref Range Hepatitis C Antibody, External Result non reactive HIV, External Result Result Value Ref Range HIV, External Result non reactive Hepatitis B, External Result Result Value Ref Range Hep B, External Result negative Rubella Titer, External Result Result Value Ref Range Rubella Titer, External Result 1.2 (Immune) RPR, External Lab Result Value Ref Range RPR, External Result <0.2 (negative) 0 - 0.8 ABO, External Result Result Value Ref Range ABO, External Result O+ Rh Factor, External Result Result Value Ref Range Rh Factor, External Result positive complications: none Discharge Medication: Medication List START taking these medications docusate sodium 100 MG capsule Commonly known as: COLACE Take 1 capsule by mouth 2 times daily as needed for Constipation ibuprofen 800 MG tablet Commonly known as: ADVIL;MOTRIN Take 1 tablet by mouth every 8 hours CONTINUE taking these medications Multivitamin [facility] Where to Get Your Medications These medications were sent to [facility] [address] [place] - [address] [facility] - P [phone] - F [phone] [address] [facility] [id number] docusate sodium 100 MG capsule ibuprofen 800 MG tablet Admit date: 03/18/2021 8:39 PM Discharge Date: 03/20/2021 Discharged to: Home in stable condition Plan: Follow up in 2 week(s) for post visit, blood pressure check, breast feeding check and post depression check documented in this encounter [email or web address] Phone: 03-20-2021 History of Presen t illness Narrative Department of Obstetrics and Gynecology Labor and Delivery Post Progress Note SUBJECTIVE: Pt reports feeling well this morning. Is her infant. Desires discharge to home. OBJECTIVE: Vitals: BP (!) 92/55 Pulse 92 Temp 98.1 F (36.7 C) (Oral) Resp 18 Unknown Patient Vitals for the past 24 hrs: BP Temp Temp src Pulse Resp 03/20/21 0700 (!) 92/55 98.1 F (36.7 C) Oral 92 18 03/20/21 0455 (!) 96/57 97.8 F (36.6 C) Oral (!) 103 18 03/20/21 0103 (!) 88/52 98 F (36.7 C) Oral 96 16 03/19/21 1954 (!) 92/57 97.8 F (36.6 C) Oral (!) 106 16 03/19/21 1600 (!) 99/58 98.3 F (36.8 C) Oral (!) 102 18 03/19/21 1200 102/62 98.1 F (36.7 C) Oral 96 18 03/19/21 1141 (!) 95/56 96 03/19/21 1126 (!) 96/53 88 03/19/21 1111 (!) 100/58 (!) 117 03/19/21 1056 98/61 85 03/19/21 1041 102/64 96 03/19/21 1026 103/65 (!) 104 03/19/21 1011 (!) 101/57 87 03/19/21 0956 106/60 (!) 102 03/19/21 0941 112/60 101 03/19/21 0940 98 F (36.7 C) Oral 18 ABDOMEN: FFM U/1 GENITAL/URINARY: No concerns Cor: RRR no Murmurs Pulmonary: clear to auscultation anterior and posterior Extremities: no Clubbing cyanosis or ecchymosis Psych: Appears to be bonding well with infant, appropriate affect. DATA: CBC: Lab Results Component Value Date WBC 10.9 03/18/2021 RBC 4.03 03/18/2021 HGB 9.0 03/18/2021 HCT 30.1 03/18/2021 MCV 74.7 03/18/2021 MCH 22.3 03/18/2021 MCHC 29.9 03/18/2021 RDW 17.0 03/18/2021 PLT 261 03/18/2021 MPV 10.0 03/18/2021 ASSESSMENT : Active Problems: Term Spontaneous Vaginal Delivery Plan: Reviewed discharge instructions. Rx to pharmacy. 2 weeks follow up with Aleksey Buck CNM. Discharge to home. Routine care and support. Arrived in unit. Patient pushing with RANDI Muniz. Care relinquished by Connie to me. Patient continues to push Pt unable to void at this time. Pt arrived to OB department with c/o ROM. States she started feeling leaking around 7:30pm. She states she did not notice any smell or color to the fluid, but did notice a small amount of blood tinged mucous. States she has been feeling the baby move as usual. Instructed to change into gown and provide urine specimen if able. Pt denies further questions/concerns at this time. documented in this encounter [email or web address] Phone: Evaluation note Diagnosis (spontaneous vaginal delivery)- Primary Normal delivery Term documented in this encounter [email or web address] Phone: evaluation note* Diagnosis examination or test, positive result (HHS-HCC) examination or test, positive result documented in this encounter [facility] HealthcareEvaluation note* Diagnosis examination or test, positive result (HHS-HCC)- Primary examination or test, positive result Monochorionic diamniotic twin gestation in first trimester (HHS-HCC) documented in this encounter [facility] HealthcareEvaluation note* Diagnosis examination or test, positive result (HHS-HCC) examination or test, positive result Monochorionic diamniotic twin , antepartum (HHS-HCC) documented in this encounter [facility] HealthcareEvaluation note* Diagnosis Monochorionic diamniotic twin gestation in second trimester- Primary documented in this encounter [facility] SystemEvaluation note* Diagnosis Monochorionic diamniotic twin gestation in second trimester- Primary documented in this encounter [facility] SystemEvaluation note* Diagnosis Monochorionic diamniotic twin gestation in second trimester- Primary [facility]* Attachments The following attachments cannot be sent through Care Everywhere. * (Hungarian) * Depression: (Hungarian) * Parenting: Stress and Infants (Hungarian) * (Hungarian) [facility]: InstructionsNot on filedocumented in this encounter [facility] SystemInstructionsNot on filedocumented in this encounter [facility] SystemInstructionsNot on filedocumented in this encounter [facility] SystemInstructionsNot on filedocumented in this encounter [facility] SystemReason for visit Narrative* OBGYN (Routine) - Authorized Specialty Diagnoses / Procedures Referred By Contac t Referred To Contact Obstetrics and Gynecology Diagnoses examination or test, positive result (HHS-HCC) Procedures MA OFFICE/OUTPATIENT NEW HIGH MDM 60 MINUTES Asher Buck, TAE [address] [place] [address] Phone: tel: fax: Asher Buck, CNM [address] [place] [address] Phone: tel: fax: Referral ID Status Reason Start Date Expiration Date Visits Requested Visits Authorized [id number] Authorized Specialty Services Required 09/28/2024 03/27/2025 15 15 [facility] Summary Purpose Family History No Family History Records FoundNo Family History Records FoundNo Family History Records FoundNo Family History Records FoundNo Family History Records FoundNo Family History Records Found Advance Directives Documents on File Type Date Recorded 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 ACP-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 of 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 Latest Code Status on File Code Status Date Activated Date Inactivated Comments Full Code 03/19/2021 10:57 AM Full Code 03/18/2021 9:21 PM 03/19/2021 10:06 AM Full Code 03/18/2021 8:40 PM 03/18/2021 9:21 PM Additional Source Comments INFORMATION SOURCE (unrecogn ized section and content) DATE CREATED AUTHOR 02/19/2020 [facility] DATE CREATED AUTHOR AUTHOR'S ORGANIZ ATION 03/06/2021 [facility] dical Specialist DATE CREATED AUTHOR AUTHOR'S ORGANIZ ATION 03/20/2021 [facility] DATE CREATED AUTHOR AUTHOR'S ORGANIZ ATION 10/08/2024 [facility] DATE CREATED AUTHOR AUTHOR'S ORGANIZ ATION 11/19/2024 [facility] dical Specialists [facility] DATE CREATED AUTHOR AUTHOR'S ORGANIZ ATION 11/30/2024 [facility] Reason for Visit (unrecogniz ed section and content) Reason Comments Rupture of Membranes Specialty Diagnoses / Procedures Referred By Contac t Referred To Contact Diagnoses Term Connie Lizarraga, ICT ANALYST - CNM [address] [place] [address] [facility] [id number] [place] [address] Referral ID Status Reason Start Date Expiration Date Visits Re quested Visits Authorized [id number] 1 1 Reason Comments Initial Visit Ordered Prescriptions (unrec ognized section and content) Prescription Sig Dispensed Refills Start Date End Da te docusate sodium (COLACE) 100 MG capsule Take 1 capsule by mouth 2 times daily as needed for Constipation 60 capsule 0 03/20/2021 ibuprofen (ADVIL;MOTRIN) 800 MG tablet Take 1 tablet by mouth every 8 hours 60 tablet 0 03/20/2021 Scheduled Active and Recently Administ ered Medications (unrecognized section and content) Medication Order 03/18/2021 03/19/2021 03/20/2021 benzocaine-menthol (DERMOPLAST) 20-0.5 % spray Topical, 2 TIMES DAILY, First dose on 03/19/21 at 1115, Apply to perineal area. Patient is capable and may self administer at bedside., 1212 (Given - Provider: Loreta Marvin RN)2100 (Not Given - Provider: Radha Conley RN - Reason: Other - Comment: pt self administering) 0801 (Not Given - Provider: Loreta Marvin RN - Reason: Other - Comment: Pt has already)2100 (Due) ferrous sulfate (IRON 325) tablet 325 mg 325 mg, Oral, 2 TIMES DAILY WITH MEALS, First dose on 03/19/21 at 1115, Start if Hgb less than 10., 1212 (Given - Provider: Loreta Marvin RN)1655 (Given - Provider: Donya Neal RN) 0757 (Given - Provider: Loreta Marvin RN)1700 (Due) ibuprofen (ADVIL;MOTRIN) tablet 800 mg 800 mg, Oral, EVERY 8 HOURS, First dose on 03/19/21 at 1115, Do not crush or break., 1211 (Given - Provider: Loreta Marvin RN)1847 (Given - Provider: Loreta Marvin, ALTAF) 0504 (Given - Provider: Radha Conley, ALTAF)1126 (Given - Provider: Loreta Marvin RN)1915 (Due) measles, mumps & rubella vaccine (MMR) injection 0.5 mL 0.5 mL, SubCUTAneous, PRIOR TO DISCHARGE, Starting on 03/19/21 at 1057, For 1 dose, vitamin 27-1 MG tablet 1 tablet 1 tablet, Oral, DAILY, First dose on 03/19/21 at 1115 1212 (Given - Provider: Loreta Marvin RN) 0757 (Given - Provider: Loreta Marvin RN) sodium chloride flush 0.9 % injection 10 mL (CANCELED) 10 mL, IntraVENous, EVERY 12 HOURS SCHEDULED (2 times per day), First dose on 03/19/21 at 1115, 1102 (Not Given - Provider: Loreta Marvin RN - Reason: Other - Comment: IV infusing)2100 (Given - Provider: Radha Conley RN) 0801 (Not Given - Provider: Loreta Marvin RN - Reason: Other - Comment: IV dcd) oiqnppy-pohuoz-kzhue pertussis (BOOSTRIX) injection 0.5 mL 0.5 mL, IntraMUSCular, PRIOR TO DISCHARGE, Starting on 03/19/21 at 1057, For 1 dose, If not previously administered during at 27-36 weeks as recommended by CDC., witch nirav-glycerin (TUCKS) pad Topical, 2 TIMES DAILY, First dose on 03/19/21 at 1115, Apply to perineal area. Patient is capable and may self administer at bedside., 1212 (Given - Provider: Loreta Marvin RN)2100 (Not Given - Provider: Radha Conley RN - Reason: Other - Comment: pt self administering) 0801 (Not Given - Provider: Loreta Marvin RN - Reason: Other - Comment: Pt has already)2100 (Due) PRN Medication Order 03/18/2021 03/19/2021 03/20/2021 acetaminophen (TYLENOL) tablet 650 mg 650 mg, Oral, EVERY 4 HOURS PRN, Fever, Fever >100.5 F (38 C) or pain 1-10, Starting on 03/19/21 at 1057, Maximum dose of acetaminophen is 4000 mg from all sources in 24 hours., calcium carbonate (TUMS) chewable tablet 500 mg (CANCELED) 500 mg, Oral, 3 TIMES DAILY PRN, Heartburn, Starting on 03/19/21 at 0433, STAT 0441 (Given - Provider: Radha Conley, ALTAF) docusate sodium (COLACE) capsule 100 mg 100 mg, Oral, 2 TIMES DAILY PRN, Constipation, Starting on 03/19/21 at 1057, Do not crush or break., lansinoh lanolin ointment Topical, PRN, Dry Skin, nipple discomfort, Starting on 03/19/21 at 1057, lidocaine PF 1 % injection 30 mL (COMPLETED) 30 mL, Other, PRN, for perineal laceration/episiotomy repair, Starting on 03/18/21 at 2118, For 1 dose, Post Delivery 0920 (Given - Provider: Loreta Marvin RN) nalbuphine (NUBAIN) injection 10 mg (CANCELED) 10 mg, IntraVENous, EVERY 2 HOURS PRN, Pain Moderate (4-6), Pain Severe (7-10), For pain, Starting on 03/18/21 at 2118, PRN for pain, Labor and Delivery 0151 (Given - Provider: Radha Conley, ALTAF) ondansetron (ZOFRAN) injection 4 mg (CANCELED) 4 mg, IntraVENous, EVERY 6 HOURS PRN, Nausea, Starting on 03/18/21 at 2118, Labor and Delivery 0546 (Given - Provider: Radha Conley RN) ondansetron (ZOFRAN-ODT) disintegrating tablet 8 mg 8 mg, Oral, EVERY 8 HOURS PRN, Nausea, Starting on 03/19/21 at 1057, sodium chloride flush 0.9 % injection 5-40 mL (CANCELED) 5-40 mL, IntraVENous, PRN, Line Care, Starting on 03/18/21 at 2118, For Line Patency: Peripheral IV = 5 mL; Midline or Central Line = 10 mL/lumen. If following IV push medication, administer flush at same rate as the IV push. Flush volume is determined by type of infusion therapy being given. For non-viscous solutions use: Peripheral IV = 5 mL Midline or Central Line = 10 mL/lumen For viscous solutions (i.e. blood components, parenteral nutrition, contrast media, or after obtaining blood sample) use: Peripheral IV = 10 mL Midline or Central Line = 20 mL/lumen, Labor and Delivery 0152 (Given - Provider: Radha Conley RN)0546 (Given - Provider: Radha Conley, ALTAF) Care Teams (unrecognized sec tion and content) Scale Tester Relationship Specialty Start Date End Date Unallocated, Lalo Chapman MD [address] [place] [address] PCP - General Family Medicine 04/10/23 Scale Tester Relationship Specialty Start Date End Date Unallocated, Lalo Chapman MD [address] [place] [address] PCP - General Family Medicine 04/10/23 Scale Tester Relationship Specialty Start Date End Date Unallocated, Lalo Chapman MD [facility] [facility] [place] [address] PCP - General Family Medicine 04/10/23 Scale Tester Relationship Specialty Start Date End Date Unallocated, Lalo Chapman MD [facility] [address] [facility] [place] [address] PCP - General Family Medicine 04/10/23 Scale Tester Relationship Specialty Start Date End Date Unallocated, Lalo Chapman MD [facility] [address] [facility] [place] [address] PCP - General Family Medicine 04/10/23 Scale Tester Relationship Specialty Start Date End Date Unallocated, Lalo Chapman MD [facility] [place] [address] PCP - General Family Medicine 04/10/23 Scale Tester Relationship Specialty Start Date End Date Services, [facility] [address] [place] PCP - General Family Medicine 03/12/17 Scale Tester Relationship Specialty Start Date End Date Services, [facility] [address] [place] PCP - General Family Medicine 03/12/17 Scale Tester Relationship Specialty Start Date End Date Services, [facility] [address] [place] PCP - General Family Medicine 03/12/17 Scale Tester Relationship Specialty Start Date End Date Services, [facility] [address] [place] PCP - General [facility] 03/12/17 Scale Tester Relationship Specialty Start Date End Date Services, [facility] [address] [place] PCP - [facility] Family [facility] 03/12/17 FOR RECORDS PERTAINING TO PATIENTS WHO ARE OR HAVE BEEN ENROLLED IN A CHEMICAL DEPENDENCY/SUBSTANCEABUSE PROGRAM, SOME INFORMATION MAY BE OMITTED. This clinical summary was aggregated from multiple sources. Caution should be exercised in using it in the provision of clinical care. This summary normalizes information from multiple sources, and as a consequence, information in this document may materially change the coding, format and clinical context of patient data. In addition, data may be omitted in some cases. CLINICAL DECISIONS SHOULD BE BASED ON THE PRIMARY CLINICAL RECORDS. [facility] [employer] [facility]. provides no warranty or guarantee of the accuracy or completeness of information in this document.
[2024-12-14 21:17] LABS: Cannabinoid Screen Urine NEGATIVE (NEGATIVE); Methamphetamines Screen Urine NEGATIVE (NEGATIVE); Tricyclic Antidepressant Urine NEGATIVE (NEGATIVE)
== END 2024-12-14 20:05 | disposition home or self-care (01) ==
LOC: LAB 20:04
PROVIDERS: PCP Midwife; Visit Provider Physician Assistant
DX: Z01.419 Encounter for gynecological examination (general) (routine) without abnormal findings (principal)
CPT/HCPCS: 80307; 88175

== ENCOUNTER 2025-01-19 08:40 | Outpatient (OUT) | payer BC, SELFPAY ==
--- OUTSIDE RECORDS SUMMARY | 2025-01-05 15:15 | XMS_ITS | Encounter Summary ---
Author Organization [facility] tem Address [id number] [address] [place] [address] Care Team Providers Care Medical Biller/Coder Name Role Phone Services, [facility] Primary Care Provider Reason for Referral * Diagnostic Imaging (Routine) - Pending ReviewSpecialtyDiagnoses / Procedures Referred By ContactReferred To ContactMaternal and Medicine Diagnoses Monochorionic diamniotic twin gestation in second trimester Procedures [facility] with or without consult Willy Urrutia MD [address] [address] Phone: tel: fax: Maternal- Medicine at [facility] [address] [place] [address] Phone: tel: fax: Referral IDStatusReasonStart DateExpiration DateVisits RequestedVisits [id number]/ Reason for Visit * Diagnostic Imaging (Routine) - Pending ReviewSpecialtyDiagnoses / Procedures Referred By ContactReferred To ContactMaternal and Medicine Diagnoses Monochorionic diamniotic twin gestation in second trimester Procedures [facility] with or without consult Willy Urrutai MD [address] [address] Phone: tel: fax: Maternal- Medicine at [facility] [address] [place] [address] Phone: tel: fax: Referral IDStatusReasonStart DateExpiration DateVisits RequestedVisits [id number]/ Encounter Details DateTypeDepartmentCare Team (Latest Contact Info)Fktpvfzbcqk68/11/2025 3:15 PM EST - 01/05/2025 11:59 PM ESTHospital Encounter [facility] [address] [place] [address] Monochorionic diamniotic twin gestation in second trimester Discharge Disposition: Home Social History Tobacco UseTypesPacks/DayYears UsedDateSmoking Tobacco: NeverSmokeless Tobacco: NeverAlcohol UseStandard Drinks/WeekCommentsNot Currently0 (1 standard drink = 0.6 oz pure alcohol)Overall Financial Resource Strain (CARDIA)AnswerDate RecordedHow hard is it for you to pay for the very basics like food, housing, medical care, and heating?Not hard at all1PHQ-2AnswerDate RecordedTotal Oxyyo1321PRAPARE - TransportationAnswerDate RecordedIn the past 12 months, has lack of transportation kept you from medical appointments or from getting medications?No1Lack of Transportation (Non-Medical)Not on file 1AUDIT-CAnswerDate RecordedFrequency of Alcohol ConsumptionNot on file 12/23/2024Q2: How many drinks containing alcohol do you have on a typical day when you are drinking?Patient does not drink12/23/2024Frequency of Binge DrinkingNot on file12/23/2024hildcareAnswerDate RecordedDo problems getting child welfare worker make it difficult for you to work or study?No09/05/2020mployment AnswerDate QvunjqxgYbzvbzquxbSdsplyj05/06/2019Hunger ScreeningAnswerDate RecordedWithin the past 12 months we worried whether our food would run out before we got money to buy more.Never True12/22/2024Within the past 12 months the food we bought just didn't last and we didn't have money to get more.Never True12/22/2024Purpose - LifeAnswerDate RecordedPurpose and direction in life Mxeapeg1704/06/2020Estimated Date of MxmbfgvmQonpstcrLcp62/07/2026ased on last menstrual period of 07/25/2024Sex and Gender InformationValueDate Recorded Sex Assigned at BirthNot on fileLegal KejJteftr45/04/2015 2:21 PM EDTGender IdentityNot on fileSexual OrientationNot on filedocumented as of this encounter Medications at Time of Discharge MedicationSigDispense QuantityRefillsLast FilledStart DateEnd Date aspirin 81 mg Take 1 tablet once a day until delivery and then stop 90 tablet CEPHALEXIN ORAL Take by mouth every 8 (eight) hours. ferrous sulfate 325 (65 FE) MG tablet Take 1 tablet (325 mg total) by mouth every other day. 7 tablet 12/24/2024 ondansetron ODT (ZOFRAN ODT) 4 mg disintegrating tablet Dissolve 1 tablet (4 mg total) on tongue every 8 (eight) hours as needed for nausea for up to 10 doses. 10 tablet 03/17/2024 21-iron fu-folic acid ( COMPLETE) 14 mg iron- 400 mcg tablet Take 1 tablet by mouth in the morning. 30 tablet 03/17/2024documented as of this encounter Plan of Treatment DateTypeDepartmentCare Team (Latest Contact Info)Ujppaophsol65/26/2025 1:00 PM ESTAppointment [facility] [address] [place] [phone] 01/28/2025 2:00 PM ESTTelemedicine Maternal- Medicine at [facility] [address] [place] [phone] Pepe Vasquez MD [address], [address] [place] [id number] documented as of this encounter Procedures Procedure NamePriorityDate/TimeAssociated DiagnosisCommentsUS MFM LMTD OB, 1 OR MORE HXYWGUmqqzhi53/11/2025 4:03 PM EST Monochorionic diamniotic twin gestation in second trimester documented in this encounter Results * US MFM LMTD OB, 1 OR MORE FETUS (01/05/2025 4:03 PM EST)Anatomical Region LateralityModalityOB-GYNUltrasoundSpecimen (Source)Anatomical Location / LateralityCollection Method / VolumeCollection TimeReceived Time01/05/2025 3:33 PM EST Narrative 01/05/2025 4:23 PM EST NAME: ??ISSA HEWITT : 2000 SEX: F Accession Number: [id number] ORDERING PHYSICIAN: WILLY URRUTIA REFERRING PHYSICIAN: HILL CENTENO Coding Procedures ? 90031: Ultrasound, uterus, real time with image documentation, limited one or more fetuses ? 35845: Doppler velocimetry, ; middle cerebral artery. 2 Indication Caswell-Di twin . History OB History ? 2. Para 1 ? [id number] Current Cell free DNA ?Low Risk analysis ? Low Risk Maternal Assessment Physical Exam ??Height 157 cm, 5 ft 2 in. Initial weight 46 kg, 102 lb. Initial BMI 18.66 kg/m?? Method Transabdominal ultrasound examination. Twin . Number of fetuses: 2. Monochorionic-diamniotic Dating LMP on: ?07/25/2024 GA by LMP ?23 w + 3 d SHIRA by LMP: ?05/01/2025 Previous Ultrasound on: ?09/28/2024 Type of prior assessment: ?GA GA at prior assessment date ?9 w + 0 d GA by previous U/S ? 23 w + 1 d SHIRA by previous Ultrasound: ?05/03/2025 Assigned: ?based on the LMP, selected on 11/25/2024 Assigned GA (weeks days) ? 23 w + 3 d Assigned SHIRA: ??05/01/2025 Fetus A: General Evaluation Cardiac activity Present. FHR 158 bpm. Presentation: upper, breech left Placenta: Placental site: anterior, previously documented away from cervical os Amniotic fluid: Amount of AF: normal amount. MVP 2.3 cm Fetus B: General Evaluation Cardiac activity Present. FHR 133 bpm. Presentation: lower, breech right Placenta: Placental site: anterior, previously documented away from cervical os Amniotic fluid: Amount of AF: normal amount. MVP 3.2 cm Fetus A: Doppler Mid Cerebral Artery: normal PI ?1.78 ?? 45% ? [place] RI ?0.82 ?? 77% ? Tu PS ?22.11 ??cm/s PS ?0.74 ?? MoM ED ?3.92 ?? cm/s TAmax ??10.02 ?? cm/s ?8% ?[place] Fetus B: Doppler Mid Cerebral Artery: normal PI ?1.73 ?? 38% ? E[place] RI ?0.82 ?? 78% ? Tu PS ?22.15 ??cm/s PS ?0.74 ?? MoM ED ?3.91 ?? cm/s TAmax ??11.18 ?? cm/s ?19% ? [place] Maternal Structures Uterus Visualized Cervix Suboptimal Impression Monochorionic-diamniotic twin . 23w 3d. Twin A is upper, breech left. bladder is identified. MCA PSV is in the unremarkable range for the evaluation of anemia. Amniotic fluid MVP measures 2.3 cm. Twin B is lower, breech right. bladder is identified. MCA PSV is in the unremarkable range for the evaluation of anemia. Amniotic fluid MVP measures 3.2 cm. Recommendations Please see [facility] recommendations from prior clinical and/or ultrasound report documentation. Subsequent follow up or other follow up as clinically determined by primary OB provider unless otherwise specified by MFM. Results forwarded to ordering provider so they can follow up with the patient as necessary. Procedure Note Carlos Curry MD - 01/05/2025 NAME: ISSA HEWITT : 2000 SEX: F Accession Number: [id number] ORDERING PHYSICIAN: WILLY URRUTIA REFERRING PHYSICIAN: HILL CENTENO Coding Procedures 52008: Ultrasound, uterus, real time with image documentation, limited one or more fetuses 20348: Doppler velocimetry, ; middle cerebral artery. 2 Indication Caswell-Di twin . History OB History 2. Para 1 [id number] Current Cell free DNA Low Risk analysis Low Risk Maternal Assessment Physical Exam Height 157 cm, 5 ft 2 in. Initial weight 46 kg, 102 lb.Initial BMI 18.66 kg/m?? Method Transabdominal ultrasound examination. Twin . Number of fetuses: 2. Monochorionic-diamniotic Dating LMP on: 07/25/2024 GA by LMP 23 w + 3 d SHIRA by LMP: 05/01/2025 Previous Ultrasound on: 09/28/2024 Type of prior assessment: GA GA at prior assessment date 9 w + 0 d GA by previous U/S 23 w + 1 d SHIRA by previous Ultrasound: 05/03/2025 Assigned: based on the LMP, selected on 11/25/2024 Assigned GA (weeks days) 23 w + 3 d Assigned SHIRA: 05/01/2025 Fetus A: General Evaluation Cardiac activity Present. FHR 158 bpm. Presentation: upper, breech left Placenta: Placental site: anterior, previously documented away fromcervical os Amniotic fluid: Amount of AF: normal amount. MVP 2.3 cm Fetus B: General Evaluation Cardiac activity Present. FHR 133 bpm. Presentation: lower, breech right Placenta: Placental site: anterior, previously documented away fromcervical os Amniotic fluid: Amount of AF: normal amount. MVP 3.2 cm Fetus A: Doppler Mid Cerebral Artery: normal PI 1.78 45% [place] RI 0.82 77% Bahlmann PS 22.11 cm/s PS 0.74 MoM ED 3.92 cm/s TAmax 10.02 cm/s 8% [place] Fetus B: Doppler Mid Cerebral Artery: normal PI 1.73 38% [place] RI 0.82 78% Bahlmann PS 22.15 cm/s PS 0.74 MoM ED 3.91 cm/s TAmax 11.18 cm/s 19% [place] Maternal Structures Uterus Visualized Cervix Suboptimal Impression Monochorionic-diamniotic twin . 23w 3d. Twin A is upper, breech left. bladder is identified. MCA PSV is in the unremarkable range for the evaluation of anemia. Amniotic fluid MVP measures 2.3 cm. Twin B is lower, breech right. bladder is identified. MCA PSV is in the unremarkable range for the evaluation of anemia. Amniotic fluid MVP measures 3.2 cm. Recommendations Please see MFM recommendations from prior clinical and/or ultrasoundreport documentation. Subsequent follow up or other follow up as clinically determined byprimary OB provider unless otherwise specified by MFM. Results forwarded to ordering provider so they can follow up with thepatient as necessary. Authorizing ProviderResult TypeResult StatusUlm Renan CHOI ORDERABLES Final Result documented in this encounter Visit Diagnoses Diagnosis Monochorionic diamniotic twin gestation in second trimester documented in this encounter Additional Health Concerns AssessmentNoted TimePHQ-9 Depression Total Score: 10:51 AM EDT documented as of this encounter Care Teams Team MemberRelationshipSpecialtyStart DateEnd [facility], [facility] [address], [place] PCP - GeneralFamily Medicine03/12/17documented as of this encounter
--- OUTSIDE RECORDS SUMMARY | 2025-01-14 11:10 | XMS_ITS | Encounter Summary ---
Author Organization [facility] Address [address] [place] [address] Care Team Providers Care Special Assets Officer Name Role Phone Unallocated, [facility] Provider Primary Care Provi diane Reason for Referral * (Routine) - IncompleteSpecialtyDiagnoses / ProceduresReferred By Contact Referred To ContactRadiology Diagnoses Gastroesophageal reflux disease, unspecified whether esophagitis present Procedures Echocardiogram 2D complete Jeannette Grijalva PA [address] [place] [address] Phone: tel: fax: Referral IDStatusReasonStart DateExpiration DateVisits RequestedVisits [id number] Perform Procedure Reason for Visit * ReasonCommentsRoutine Visit Encounter Details DateTypeDepartmentCare Team (Latest Contact Info)Ovtevkpfeqc94/20/2025 11:10 AM ESTRoutine LALO [facility]as [facility] [address] [place] [phone] Ronny Roa DO [address] [place] [id number] Gastroesophageal reflux in (HHS-HCC) (Primary Dx); Second trimester ([facility]); Diabetes mellitus screening; 24 weeks gestation of ([facility]); Gastroesophageal reflux disease, unspecified whether esophagitis present Social History Tobacco UseTypesPacks/DayYears UsedDateSmoking Tobacco: NeverSmokeless Tobacco: NeverAlcohol UseStandard Drinks/WeekCommentsNot Currently0 (1 standard drink = 0.6 oz pure alcohol)Estimated Date of ZjxpwtaxRvvmbqznEgz88/07/2026ased on last menstrual period of 07/25/2024Sex and Gender InformationValueDate RecordedSex Assigned at BirthNot on fileLegal PzdUmqmwk65/15/2023 11:18 PM EDT Gender IdentityNot on fileSexual OrientationNot on filedocumented as of this encounter Last Filed Vital Signs Vital SignReadingTime TakenCommentsBlood Gdxyhwxt76/5201/14/2025 11:20 AM EST Pulse--Temperature--Respiratory Rate--Oxygen Saturation--Inhaled Oxygen Concentration--Kxtiiq86.3 kg (119 lb 12 oz)01/14/2025 11:20 AM ESTHeight--Body Mass Index21.9009/28/2024 5:04 PM EDTdocumented in this encounter Plan of Treatment DateTypeDepartmentCare Team (Latest Contact Info)Ddnhumdmllk40/18/2025 1:30 PM ESTRoutine [facility] [address] [facility] [facility] [place] [address] Jeannette Grijalva PA [address] [place] [address] NameTypePriorityAssociated DiagnosesOrder ScheduleCBCLabRoutine Diabetes mellitus screening Expected: 01/14/2025 (Approximate), Expires: 01/14/2026Glucose tolerance, 1 hour LabRoutine Diabetes mellitus screening Expected: 01/14/2025 (Approximate), Expires: 01/14/2026Echocardiogram 2D completeEchocardiographyRoutine Gastroesophageal reflux disease, unspecified whether esophagitis present Expected: 01/14/2025 (Approximate), Expires: 01/14/2027documented as of this encounter Procedures Procedure NamePriorityDate/TimeAssociated DiagnosisCommentsPOCT URINALYSIS ZVTVJKLDBvwbhik28/20/2025 11:46 AM EST Second trimester ([facility]) documented in this encounter Results * (ABNORMAL) POCT urinalysis dipstick manually resulted (01/14/2025 11:46 AM EST)ComponentValueRef RangeTest MethodAnalysis TimePerformed AtPathologist SignatureColor, UAYellowClarity, UAClearGlucose, UANegativeNegative - 1999(110) ++++ mg/dLBilirubin, UANegativeNegative - 4(70) +++ mg/dLKetones, UA NegativeNegative - 160(16) ++++ mg/dLSpec Grav, UA1.0101 - 1.03Blood, UA NegativeNegative - 50 Sim/mcLpH, UA7.55 - 9Protein, UANegativeNegative - 2000(20) ++++ mg/dLUrobilinogen, UA0.20.2 - 12 mg/dLLeukocytes, UAPositive Negative - 500+++ Jigar/mcLComment:2+Nitrite, UANegativeNegative - Positive Specimen (Source)Anatomical Location / LateralityCollection Method / Volume Collection TimeReceived HokbZdbws88/20/2025 11:46 AM EST Narrative Authorizing ProviderResult TypeResult StatusCorey Janina DOPOINT OF CARE TEST ENTER/EDIT ORDERABLESFinal Result documented in this encounter Visit Diagnoses Diagnosis Gastroesophageal reflux in (HHS-HCC)- Primary Second trimester (HHS-HCC) state, incidental Diabetes mellitus screening Screening for diabetes mellitus 24 weeks gestation of (HHS-HCC) Gastroesophageal reflux disease, unspecified whether esophagitis present documented in this encounter Care Teams Team MemberRelationshipSpecialtyStart DateEnd Date Unallocated, [facility] Provider, [place] [address] PCP - GeneralFamily Medicine04/10/23documented as of this encounter
--- OUTSIDE RECORDS SUMMARY | 2025-01-19 08:46 | XMS_ITS | Clinical Summary ---
Author Organization [facility] Address [address], [address] [place] [address] Care Team Providers Care Fitter'S Assistant Name Role Phone Unavailable Primary Care Provider Unavailabl e Allergies No known active allergies Medications MedicationSigDispense QuantityRefillsLast FilledStart DateEnd DateStatus Pediatric Multiple Vitamins (MULTIVITAMIN CHILDRENS) CHEW Take 1 tablet by mouth dailyActive ibuprofen (ADVIL;MOTRIN) 800 MG tablet Take 1 tablet by mouth every 8 hours 60 tablet 03/20/2021ctive docusate sodium (COLACE) 100 MG capsule Take 1 capsule by mouth 2 times daily as needed for Constipation 60 capsule 03/20/2021ctive Active Problems ProblemNoted DateDiagnosed DateSVD (spontaneous vaginal delivery)03/20/2021Term yirmgrxke54/22/2022History of burns03/16/2011 Social History Tobacco UseTypesPacks/DayYears UsedDateSmoking Tobacco: NeverAlcohol UseStandard Drinks/WeekCommentsNot Asked0 (1 standard drink = 0.6 oz pure alcohol) CommentsNoSex and Gender InformationValueDate RecordedSex Assigned at BirthNot on fileLegal NmgMewmyp18/10/2013 5:11 PM ESTGender IdentityNot on fileSexual OrientationNot on file Last Filed Vital Signs Vital SignReadingTime TakenCommentsBlood Cqmloiuj87/55003/20/2021 11:29 AM EST Famwf7412 11:29 AM CMEGxzcsiomqqq81.2 ??C (97.2 ??F)03/20/2021 11:29 AM ESTRespiratory Fwnp990803/20/2021 11:29 AM ESTOxygen Saturation--Inhaled Oxygen Concentration--Wgwyza77.3 kg (58 lb)07/31/2011 9:34 AM EPMRngghe000.5 cm (4' 3 ) 07/31/2011 9:34 AM EDTBody Mass Index15.68007/31/2011 9:34 AM EDT Plan of Treatment Not on file Insurance Advance Directives * Full Code (Latest Code Status on File) Date ActivatedDate InactivatedComments03/19/2021 10:57 AM03/20/2021 6:16 PM * Full Code Date ActivatedDate InactivatedComments03/18/2021 9:21 PM03/19/2021 10:06 AM * Full Code Date ActivatedDate InactivatedComments03/18/2021 8:40 PM03/18/2021 9:21 PM
--- OUTSIDE RECORDS SUMMARY | 2025-01-19 08:46 | XMS_ITS ---
Author Organization [facility] Source Produ ction (ClinicalSummary Clone) Address Unknown Care Team Providers Care Appliance Sales Associate Name Role Phone Unavailable Primary Care Physician Unavailab le Results * [UNITY] CARRIER SCREEN Performed by: [employer] Component Value Range Date Sickle Cell Disease/Beta-Thalassemia/Hemoglobino pathies carrier screen NEGATIVE 10/27/2024 08:31 pm UTCAlpha-Thalassemia carrier rivfyxPPVNTVWE51/02/2025 08:31 pm UTCCystic Fibrosis carrier aqaysxNIYQDYDR59/02/2025 08:31 pm UTCSpinal Muscular Atrophy carrier screenNEGATIVE 2 SMN1 copies, SNP not wswnfde5810/27/2024 08:31 pm UTCFor detailed report, see PDFSee PDF10/27/2024 08:31 pm UTC 10/27/2024 08:31 pm UTC Social History Observation Value Start Date End Date
--- OUTSIDE RECORDS SUMMARY | 2025-01-19 08:46 | XMS_ITS ---
Author Organization [facility] Source Produ ction (ClinicalSummary Clone) Address Unknown Care Team Providers Care Solar Installer Pv Name Role Phone Unavailable Primary Care Physician Unavailab le Results * [UNITY] ANEUPLOIDY NIPT Performed by: Barafon Component Value Range Date Fraction 14.8% 10/24/2024 04:55 am YQM50y59.2 MicrodeletionLOW RISK <1 in , 04:55 am UTCTrisomy 13LOW RISK <1 in , 04:55 am UTCTrisomy 18LOW RISK <1 in , 04:55 am UTCTrisomy 21LOW RISK <1 in 10,000 10/24/2024 04:55 am UTCFetal SexMALE & MALE10/24/2024 04:55 am UTCPregnancy GestationTWIN - MONOZYGOTIC (IDENTICAL)10/24/2024 04:55 am UTCFor detailed report, see PDFSee PDF10/24/2024 04:55 am UTC10/24/2024 04:55 am UTC Social History Observation Value Start Date End Date
--- OUTSIDE RECORDS SUMMARY | 2025-01-19 08:46 | XMS_ITS | Clinical Summary ---
Author Organization [facility] Address [address] [place] [address] Care Team Providers Care Ice House Supervisor Name Role Phone Unallocated, Noms Provider Primary Care Provi diane Allergies No known active allergies Medications MedicationSigDispense QuantityRefillsLast FilledStart DateEnd DateStatus BABY ASPIRIN PO Take by mouth DailyActive omeprazole (PriLOSEC) [address] capsule Indications:Gastroesophageal Reflux Disease,HeartburnTake 1 capsule (20 mg) by mouth in the morning. Take before meals. Do not crush or chew. 30 capsule 5Active cephalexin (Keflex) 500 MG capsule Indications:Urinary tract infection with hematuria, site unspecifiedTake 1 capsule (500 mg) by mouth in the morning and 1 capsule (500 mg) in the evening and 1 capsule(500 mg) before bedtime. Do all this for 7 days. 21 capsule Expired Encounters DateTypeDepartmentCare UyvoBfbzvjnikbv11/20/2025 11:10 [place] [address] Hill Roa, Gastroesophageal reflux in ([facility]) (Primary Dx); Second trimester ([facility]); Diabetes mellitus screening; 24 weeks gestation of ([facility]); Gastroesophageal reflux disease, unspecified whether esophagitis present 01/14/2025amboo flowsheet [facility] [address] [place] [address] Hill Roa, 01/07/2025bstract [facility] [address] [place] [phone] Melo Violetta, [place] 12/28/2024Orders Only [facility] [address] [place] [phone] Zoey Perrin LPN 12/16/2024bstract [facility] [address] [place] [address] Melo ViolettaSTANDARD, [place] 12/16/2024Telephone [facility] [address] [place] [address] Melo [place], [place] 12/14/2024 2:40 PM EDTRoutine [facility] [address] [place] [address] Jeannette Grijalva PA 20 weeks gestation of ([facility]); Second trimester ([facility]); Monochorionic diamniotic twin , antepartum ([facility]); Well woman exam with routine gynecological exam; Exposure to STD; Vaginal discharge; , unspecified gestational age ([facility]); Encounter for supervision of normal first in first trimester ([facility]) 12/14/2024linisync Result Encounter [facility] External Department Unsolicited Provider, Generic External Data 12/14/2024amboo flowsheet [facility] [address] [place] [address] Jeannette Grijalva PA 12/09/2024Telephone [facility] [address] [place] [address] Whitney Cruz LPN 12/04/2024bstract [facility] [address] [place] [address] Hill Roa DO 11/26/2024bstract [facility] [address] [place] [phone] Violetta Alejo MA 11/26/2024External Result Encounter [facility] [address] [place] [phone] Hill Roa, 11/18/2024 1:40 PM EDTRoutine [facility] [address] [place] [address] Hill Roa, examination or test, positive result ([facility]); Monochorionic diamniotic twin , antepartum ([facility])11/18/2024Telephone [facility] [address] [place] [address] Daina Robins, RESIDENTIAL MENTAL HEALTH WORKER 11/18/2024Telephone [facility] [address] [place] [address] Daina Robins, RESIDENTIAL MENTAL HEALTH WORKER 11/18/2024amboo flowsheet [facility] [address] [place] [address] [place] [address] Hill Roa, DO 11/12/20246870Fktaxf70/25/2025 5:15 PM EDTRoutine [facility] [address] [place] [address] Lori Buck CNM examination or test, positive result ([facility]) (Primary Dx); Monochorionic diamniotic twin gestation in first trimester ([facility])10/19/2024 Bamboo flowsheet [facility] [address] [place] [address] Lori Buck CNM from Last 3 Months Family History RelationNameStatusCommentsFatherAliveMotherAlive Social History Tobacco UseTypesPacks/DayYears UsedDateSmoking Tobacco: NeverSmokeless Tobacco: Never Tobacco Cessation:Counseling Given: Not Answered Alcohol UseStandard Drinks/WeekCommentsNot Currently0 (1 standard drink = 0.6 oz pure alcohol)Estimated Date of KgzpyywlWjnmfyevFtz24/07/2026ased on last menstrual period of 07/25/2024Sex and Gender InformationValueDate Recorded Sex Assigned at BirthNot on fileLegal TceGwfsok14/15/2023 11:18 PM EDTGender IdentityNot on fileSexual OrientationNot on file Last Filed Vital Signs Vital SignReadingTime TakenCommentsBlood Xsveinsr75/5201/14/2025 11:20 AM EST Pulse--Temperature--Respiratory Rate--Oxygen Saturation--Inhaled Oxygen Concentration--Hkwono67.3 kg (119 lb 12 oz)01/14/2025 11:20 AM SQTJdzqze153.5 cm (5' 2 )09/28/2024 5:04 PM EDTBody Mass Index21.9009/28/2024 5:04 PM EDT Plan of Treatment DateTypeDepartmentCare Team (Latest Contact Info)Vqyjdzffdwf26/18/2025 1:30 PM ESTRoutine [facility] [address] [place] [phone] Jeannette Grijalva PA [address] [place], [place] [phone] Health MaintenanceDue DateLast DoneCommentsCOVID-19 Vaccine (2024- season) 2024Influenza Vaccine (#1)Pneumococcal Vaccine: Pediatrics (0 to 5 Years) and At-Risk Patients (6 to 64 Years)Aged OutNo longer eligible based on patient's age to complete this topic Procedures Procedure NamePriorityDate/TimeAssociated DiagnosisCommentsPOCT URINALYSIS AJZUAUPJKdsftgz44/20/2025 11:46 AM EST Second trimester ([facility]) US OB 14+ WEEKS ANATOMY SCAN12/15/2024 4:05 PM EDT POCT URINALYSIS BUQGTNXIQstoowk66/20/2025 4:44 PM EDT 20 weeks gestation of ([facility]) Second trimester ([facility]) URINARY TRACT INFECTION (HTRX)Zudtxva2712/14/2024 4:35 PM EDT RECURRENT VAGINITIS (HTRX)Zvyrmxp4812/14/2024 4:33 PM EDT IGP,APTIMA HPV,AGE BGSETvkprzw37/20/2025 3:31 PM EDT [facility] DRUG SCREEN RAPID (URINE)Ajbzjoc4312/14/2024 3:31 PM EDT PAP TEST, VHRPFPNTZkmljpn55/20/2025 12:00 AM EDTfrom Last 3 Months Results * (ABNORMAL) POCT urinalysis dipstick manually resulted (01/14/2025 11:46 AM EST) Only the most recent of2 resultswithin the time period is included. ComponentValueRef RangeTest MethodAnalysis TimePerformed AtPathologist Signature Color, UAYellowClarity, UAClearGlucose, UANegativeNegative - 2000(110) ++++ mg/dLBilirubin, UANegativeNegative - 4(70) +++ mg/dLKetones, UANegativeNegative - 160(16) ++++ mg/dLSpec Grav, UA1.0101 - 1.03Blood, UANegativeNegative - 50 Sim/mcLpH, UA7.55 - 9Protein, UANegativeNegative - 2000(20) ++++ mg/dL Urobilinogen, UA0.20.2 - 12 mg/dLLeukocytes, UAPositiveNegative - 500+++ Jigar/mcL Comment:2+Nitrite, UANegativeNegative - PositiveSpecimen (Source)Anatomical Location / LateralityCollection Method / VolumeCollection TimeReceived TimeUrine 01/14/2025 11:46 AM EST Narrative Authorizing ProviderResult TypeResult StatusCorey Janina DOPOINT OF CARE TEST ENTER/EDIT ORDERABLESFinal Result * US OB 14+ weeks anatomy scan (12/15/2024 4:05 PM EDT)Anatomical Region LateralityModalityBodyUltrasoundSpecimen (Source)Anatomical Location / LateralityCollection Method / VolumeCollection TimeReceived Time12/15/2024 4:05 PM EDT Narrative 11/26/2024 1:12 PM EDT THIS EXAM WAS PERFORMED AT [facility] NAME: ??ISSA HEWITT : 2000 SEX: F Accession Number: [id number] ORDERING PHYSICIAN: HILL ROA REFERRING PHYSICIAN: HILL ROA Coding Procedures ? 45597: Ultrasound, uterus, real time with image documentation, and maternal evaluation ? plus detailed anatomic examination, transabdominal approach;single or first gestation. 2 ? 21465: Doppler velocimetry, ; middle cerebral artery. 2 Indication Screening for Anatomic Survey, [place]-Di twin . History OB History ? 2. Para 1 ? H5X9H6G1 Current Cell free DNA ?Low Risk analysis ? Low Risk Maternal Assessment Physical Exam ??Height 157 cm, 5 ft 2 in. Weight 50 kg, 111 lb. Initial weight 46 kg, 102 lb. BMI 20.30 kg/m???. Initial ? BMI 18.66 kg/m???. Weight gain 4 kg, 9 lb Method Transabdominal ultrasound examination. View: Suboptimal view: limited by position. Twin . Number of fetuses: 2. Monochorionic-diamniotic Dating LMP on: ?07/25/2024 GA by LMP ?17 w + 4 d SHIRA by LMP: ?05/01/2025 Previous Ultrasound on: ?09/28/2024 Type of prior assessment: ?GA GA at prior assessment date ?9 w + 0 d GA by previous U/S ? 17 w + 2 d SHIRA by previous Ultrasound: ?05/03/2025 Ultrasound examination on: ? 11/25/2024 GA by U/S based upon: ??AC, BPD, Femur, HC GA by U/S ?17 w + 4 d SHIRA by U/S: ?05/01/2025 GA by U/S based upon (Fetus 2): ?AC, BPD, Femur, HC GA by U/S (Fetus 2) ?18 w + 0 d SHIRA by U/S (Fetus 2): ??04/28/2025 Assigned: ?based on the LMP, selected on 11/25/2024 Assigned GA (weeks days) ? 17 w + 4 d Assigned SHIRA: ??05/01/2025 Fetus A: General Evaluation Cardiac activity Present. FHR 151 bpm. Presentation: cephalic, Lower Left Placenta: Placental site: anterior, away from cervical os Umbilical cord: Cord vessels: 3 vessel cord. Insertion site: not examined Amniotic fluid: Amount of AF: normal amount. MVP 3.4 cm Fetus B: General Evaluation Cardiac activity Present. FHR 148 bpm. Presentation: cephalic, Upper Right Placenta: Placental site: anterior, away from cervical os Umbilical cord: Cord vessels: 3 vessel cord. Insertion site: not examined Amniotic fluid: Amount of AF: normal amount. MVP 4.1 cm Fetus A: Biometry Standard BPD ?39.1 mm 17w 6d 65% Hadlock OFD ?50.0 mm 18w 3d 81% Alina HC ? 143.2 mm ?17w 4d 41% Hadlock Cerebellum tr ??17.1 mm 17w 2d 32% Hill Nuchal fold ?1.7 mm AC ? 121.9 mm ?17w 6d 58% Hadlock Femur ??22.8 mm 16w 6d 19% Hadlock Humerus ?22.2 mm 16w 6d 27% Alina HC / AC ?1.17 ? 37% Hadlock EFW ?193 g ?34% Hadlock EFW discordance ?10.6 % EFW (lb) ? 0 lb EFW (oz) ? 7 oz EFW by: ?Hadlock (NJT-LH-RR-FL) Extended Tibia ??18.7 mm 16w 3d 18% Alina CM ? 4.1 mm ?? 41% Nicolaides Head / Face / Neck Cephalic index 0.78 ? 38% Nicolaides Nasal bone: ?not examined Extremities / Bony Struc FL / BPD ? 0.58 ? 6% Hadlock FL / HC ?0.16 ? 11% Hadlock FL / AC ?0.19 ? 8% Hadlock Other Structures FHR ?151 bpm Fetus B: Biometry Standard BPD ?39.2 mm 17w 6d 66% Hadlock OFD ?53.3 mm 19w 1d 95% Alina HC ? 148.2 mm ?18w 0d 61% Hadlock Cerebellum tr ??18.4 mm 18w 1d 80% Hill Nuchal fold ?3.0 mm AC ? 130.4 mm ?18w 4d 80% Hadlock Femur ??24.0 mm 17w 2d 32% Hadlock Humerus ?23.3 mm 17w 2d 43% Alina HC / AC ?1.14 ? 19% Hadlock EFW ?216 g ?66% Hadlock EFW discordance ?10.6 % EFW (lb) ? 0 lb EFW (oz) ? 8 oz EFW by: ?Hadlock (RZC-VJ-ZT-FL) Extended Tibia ??20.1 mm 17w 0d 35% Alina CM ? 3.5 mm ?? 22% Nicolaides Head / Face / Neck Cephalic index 0.74 ? 5% Nicolaides Nasal bone: ?not examined Extremities / Bony Struc FL / BPD ? 0.61 ? 21% Hadlock FL / HC ?0.16 ? 11% Hadlock FL / AC ?0.18 ? 5% Hadlock Other Structures FHR ?148 bpm Fetus A: Anatomy The following structures appear normal: Head/Neck: Cranium. Choroid plexus. Midline falx. Cavum septi pellucidi. Cerebellum. Cisterna magna. Parenchyma. ? Neck. Nuchal fold. Heart/Thorax: Situs. Cardiac position. Cardiac axis. Cardiac size. Cardiac rhythm. ? Right lung. Left lung. Abdomen: Stomach. Kidneys. Bladder. Small bowel. Large bowel. Genitals. Extremities/Skeleton: Right upper arm. Right forearm. Right hand. Left upper arm. Left forearm. Right upper leg. Right lower ? leg. Left upper leg. Left lower leg. The following structures could not be adequately visualized: Head / Neck ?Vermis. Heart / Thorax 4-chamber view. 3-vessel view. 3-jtndie-ootbjrz view. Aortic arch view. Bicaval view. Interventricular ? septum. Great vessels. Spine: Cervical spine. Thoracic spine. Lumbar spine. Sacral spine. Extremities / ??Left hand. Left foot. Skeleton The following structures could not be examined: Head / Neck ?Lateral ventricles. Face: Lips. Profile. Nose. Nasal bone. Maxilla. Mandible. Orbits. Heart / Thorax RVOT view. LVOT view. Ductal arch view. ? Diaphragm. Abdomen ?Abdom. wall. Cord insertion. Right renal artery. Left renal artery. Extremities / ??Right foot. Skeleton Fetus B: Anatomy The following structures appear normal: Head / Neck ?Cranium. Choroid plexus. Midline falx. Cerebellum. Cisterna magna. Parenchyma. ? Neck. Face ?? Lips. Nose. Heart / Thorax Situs. Cardiac position. Cardiac axis. Cardiac size. Cardiac rhythm. ? Right lung. Left lung. Diaphragm. Abdomen ?Abdom. wall. Cord insertion. Stomach. Kidneys. Bladder. Small bowel. Large bowel. Genitals. Extremities / ??Right upper arm. Right forearm. Right hand. Left upper arm. Left forearm. Right upper leg. Right lower Skeleton ? leg. Left upper leg. Left lower leg. The following structures could not be adequately visualized: Head / Neck ?Cavum septi pellucidi. Face ?? Profile. Heart / Thorax 4-chamber view. RVOT view. LVOT view. 3-vessel view. 9-iyhsec-lfrenek view. Aortic arch view. Bicaval ? view. Ductal arch view. Interventricular septum. Great vessels. Spine ??Cervical spine. Thoracic spine. Lumbar spine. Sacral spine. Extremities / ??Left hand. Right foot. Left foot. Skeleton The following structures could not be examined: Head / Neck ?Lateral ventricles. Vermis. ? Nuchal fold. Face ?? Nasal bone. Maxilla. Mandible. Orbits. Abdomen ?Right renal artery. Left renal artery. Fetus A: Doppler Mid Cerebral Artery: normal PI ?1.42 RI ?0.75 PS ?20.96 ??cm/s PS ?0.92 ?? MoM ED ?5.30 ?? cm/s TAmax ??11.06 ?? cm/s Fetus B: Doppler Mid Cerebral Artery: normal PI ?1.14 RI ?0.72 PS ?21.77 ??cm/s PS ?0.96 ?? MoM ED ?6.15 ?? cm/s TAmax ??13.66 ?? cm/s Maternal Structures Uterus Visualized Cervix Suboptimal ? Approach - Transabdominal Right Ovary ?Visualized ? Size 1.9 cm x 2.0 cm x 1.4 cm. Vol 2.7 cm??? Left Ovary ? Not visualized Cul de Sac ? Suboptimal Impression Monochorionic-diamniotic twin consistent with 17w 4d with [...] anemia. Twin growth discordance is 10.6%. Recommendations TTTS surveillance follow up every 2 weeks with Dopplers. The patient is scheduled in four to six week(s) to complete anatomic survey, echocardiogram, cervical length and Dopplers. Subsequent follow up or other follow up as clinically determined by primary OB provider unless otherwise specified by MFM. Results forwarded to ordering provider so they can follow up with the patient as necessary. Procedure Note Radiology, Radiologist, - 12/15/2024 THIS EXAM WAS PERFORMED AT [facility] NAME: ISSA HWEITT : 2000 SEX: F Accession Number: [id number] ORDERING PHYSICIAN: HILL ROA REFERRING PHYSICIAN: HILL ROA Coding Procedures [id number]: Ultrasound, uterus, real time with image documentation, and maternal evaluation plus detailed anatomic examination, transabdominalapproach;single or first gestation. 2 [address]771: Doppler velocimetry, ; middle cerebral artery. 2 Indication Screening for Anatomic Survey, [place]-Di twin . History OB History 2. Para 1 P6X7H1H0 Current Cell free DNA Low Risk analysis Low Risk Maternal Assessment Physical Exam Height 157 cm, 5 ft 2 in. Weight 50 kg, 111 lb. Initialweight 46 kg, 102 lb. BMI 20.30 kg/m???. Initial BMI 18.66 kg/m???. Weight gain 4 kg, 9 lb Method Transabdominal ultrasound examination. View: Suboptimal view: limited byfetal position. Twin . Number of fetuses: 2. Monochorionic-diamniotic Dating LMP on: 07/25/2024 GA by LMP 17 [...] A: General Evaluation Cardiac activity Present. FHR 151 bpm. Presentation: cephalic, LowerLeft Placenta: Placental site: anterior, away from cervical os Umbilical cord: Cord vessels: 3 vessel cord. Insertion site: notexamined Amniotic fluid: Amount of AF: normal amount. MVP 3.4 cm Fetus B: General Evaluation Cardiac activity Present. FHR 148 bpm. Presentation: cephalic, UpperRight Placenta: Placental site: anterior, away from cervical os Umbilical cord: Cord vessels: 3 vessel cord. Insertion site: notexamined Amniotic fluid: Amount of AF: normal amount. MVP 4.1 cm Fetus A: Biometry Standard BPD 39.1 mm 17w 6d 65% [...] EFW (oz) 7 oz EFW by: Hadlock (FYN-OD-VA-FL) Extended Tibia 18.7 mm 16w 3d 18% Alina CM 4.1 mm 41% Nicolaides Head / Face / Neck Cephalic index 0.78 38% Nicolaides Nasal bone: not examined Extremities / Bony Struc FL / BPD 0.58 6% Hadlock FL / HC 0.16 11% Hadlock FL / AC 0.19 8% Hadlock Other Structures FHR 151 bpm Fetus B: Biometry Standard BPD 39.2 mm 17w 6d 66% [...] EFW (oz) 8 oz EFW by: Hadlock (UFF-YE-GI-FL) Extended Tibia 20.1 mm 17w 0d 35% Alina CM 3.5 mm 22% Nicolaides Head / Face / Neck Cephalic index 0.74 5% Nicolaides Nasal bone: not examined Extremities / Bony Struc FL / BPD 0.61 21% Hadlock FL / HC 0.16 11% Hadlock FL / AC 0.18 5% Hadlock Other Structures FHR 148 bpm Fetus A: Anatomy The following structures appear normal: Head/Neck: Cranium. [...] Heart / Thorax 4-chamber view. 3-vessel view. 8-drruuf-wbvrdxx view.Aortic arch view. Bicaval view. Interventricular septum. [...] / Right foot. Skeleton Fetus B: Anatomy The following structures appear normal: Head / [...] view. RVOT view. LVOT view. 3-vessel view. 7-szsesz-ipymcbz view. Aortic arch view. Bicaval view. Ductal arch view. Interventricular septum. Great vessels. Spine Cervical spine. Thoracic spine. Lumbar spine. Sacral spine. Extremities / Left hand. Right foot. Left foot. Skeleton The following structures could not be examined: Head / Neck Lateral ventricles. Vermis. Nuchal fold. Face Nasal bone. Maxilla. Mandible. Orbits. Abdomen Right renal artery. Left renal artery. Fetus A: Doppler Mid Cerebral Artery: normal PI 1.42 RI 0.75 PS 20.96 cm/s PS 0.92 MoM ED 5.30 cm/s TAmax 11.06 cm/s Fetus B: Doppler Mid Cerebral Artery: normal PI 1.14 RI 0.72 PS 21.77 cm/s PS 0.96 MoM ED 6.15 cm/s TAmax 13.66 cm/s Maternal Structures Uterus Visualized Cervix Suboptimal Approach - Transabdominal Right Ovary Visualized Size 1.9 cm x 2.0 cm x 1.4 cm. Vol 2.7 cm??? Left Ovary Not visualized Cul de Sac Suboptimal Impression Monochorionic-diamniotic twin consistent with 17w 4d with [...] anemia. Twin growth discordance is 10.6%. Recommendations TTTS surveillance follow up every 2 weeks with Dopplers. The patient is scheduled in four to six week(s) to complete anatomicsurvey, echocardiogram, cervical length and Dopplers. Subsequent follow up or other follow up as clinically determined byprimary OB provider unless otherwise specified by [facility]. Results forwarded to ordering provider so they can follow up with thepatient as necessary. Authorizing ProviderResult TypeResult StatusCorey Janina [facility] US PROCEDURES Edited Result - Final * (ABNORMAL) URINARY TRACT INFECTION (HTRX) (12/14/2024 4:35 PM EDT)Component ValueRef RangeTest MethodAnalysis TimePerformed AtPathologist Signature ACINETOBACTER XDLEXMAV768.961 - 24.689 ppm12/16/2024 7:34 AM EDTHealthTrackRx at LabPortACINETOBACTER BAUMANIINot Tijokmon86.961 - 24.689 ppm12/16/2024 7:34 AM EDTHealthTrackRx at LabPortCITROBACTER MRISJODD546.000 - 32.015 ppm 12/16/2024 7:34 AM EDTHealthTrackRx at LabPortCITROBACTER FREUNDIINot Detected 23.000 - 32.015 ppm12/16/2024 7:34 AM EDTHealthTrackRx at LabPortENTEROBACTER AEROGENES, TZHDKKF976.000 - 32.290 ppm12/16/2024 7:34 AM EDTHealthTrackRx at LabPortENTEROBACTER AEROGENES, CLOACAENot Tlctirof24.000 - 32.290 ppm 12/16/2024 7:34 AM EDTHealthTrackRx at LabPortENTEROCOCCUS FAECALIS, FAECIUM0 26.000 - 33.043 ppm12/16/2024 7:34 AM EDTHealthTrackRx at LabPortENTEROCOCCUS FAECALIS, FAECIUMNot Pkxketfb91.000 - 33.043 ppm12/16/2024 7:34 AM EDT [facility] at LabPortESCHERICHIA YJNT180.000 - 28.500 ppm12/16/2024 7:34 AM EDTHealthTrackRx at LabPortESCHERICHIA COLINot Hxwhtrjx39.000 - 28.500 ppm 12/16/2024 7:34 AM EDTHealthTrackRx at LabPortKLEBSIELLA PNEUMONIAE, OXYTOCA0 23.000 - 31.865 ppm12/16/2024 7:34 AM EDTHealthTrackRx at LabPortKLEBSIELLA PNEUMONIAE, OXYTOCANot Ytvxzadx24.000 - 31.865 ppm12/16/2024 7:34 AM EDT [facility] at LabPortMORGANELLA HNEOYSJZ498.961 - 24.689 ppm12/16/2024 7:34 AM EDTHealthTrackRx at LabPortMORGANELLA MORGANIINot Lrnfbzpb42.961 - 24.689 ppm12/16/2024 7:34 AM EDTHealthTrackRx at LabPortPROTEUS MIRABILIS, VULGARIS0 23.000 - 28.500 ppm12/16/2024 7:34 AM EDTHealthTrackRx at LabPortPROTEUS MIRABILIS, VULGARISNot Lwonjxtg97.000 - 28.500 ppm12/16/2024 7:34 AM EDT [facility] at LabPortPSEUDOMONAS EXTSGPJNRT285.000 - 31.801 ppm12/16/2024 7:34 AM EDTHealthTrackRx at LabPortPSEUDOMONAS AERUGINOSANot Nykaxffi03.000 - 31.801 ppm12/16/2024 7:34 AM EDTHealthTrackRx at LabPortSTAPHYLOCOCCUS AUREUS0 26.000 - 31.595 ppm12/16/2024 7:34 AM EDTHealthTrackRx at LabPort STAPHYLOCOCCUS AUREUSNot Motuutsb51.000 - 31.595 ppm12/16/2024 7:34 AM EDT [facility] at LabPortSTREPTOCOCCUS AGALACTIAE (GROUP B STREP)026.000 - 32.435 ppm12/16/2024 7:34 AM EDTHealthTrackRx at LabPortSTREPTOCOCCUS AGALACTIAE (GROUP B STREP)Not Nwprhzjm90.000 - 32.435 ppm12/16/2024 7:34 AM EDTHealthTrackRx at LabPortCANDIDA ALBICANS, PARAPSILOSIS, JHMYISDPJO430.000 - 30.347 ppm12/16/2024 7:34 AM EDTHealthTrackRx at LabPortCANDIDA ALBICANS, PARAPSILOSIS, TROPICALISNot Zdjudlvs53.000 - 30.347 ppm12/16/2024 7:34 AM EDT [facility] at LabPortCANDIDA OVXPYKWK518.000 - 31.618 ppm12/16/2024 7:34 AM EDTHealthTrackRx at LabPortCANDIDA GLABRATANot Arahnraa09.000 - 31.618 ppm 12/16/2024 7:34 AM EDTHealthTrackRx at LabPortCANDIDA TICRKM020.000 - 30.873 ppm12/16/2024 7:34 AM EDTHealthTrackRx at LabPortCANDIDA KRUSEINot Detected 23.000 - 30.873 ppm12/16/2024 7:34 AM EDTHealthTrackRx at LabPortSERRATIA SHPFRLBWVM086.000 - 31.581 ppm12/16/2024 7:34 AM EDTHealthTrackRx at LabPort SERRATIA MARCESCENSNot Ryxdpjbb44.000 - 31.581 ppm12/16/2024 7:34 AM EDT [facility] HospitalSTREPTOCOCCUS PYOGENES (GROUP A STREP)019.961 - 24.689 ppm12/16/2024 7:34 AM EDTHealthTrackRx at LabPortSTREPTOCOCCUS PYOGENES (GROUP A STREP)Not Kytrwano28.961 - 24.689 ppm12/16/2024 7:34 AM EDTHealthTrackRx at [facility] HospitalSTAPHYLOCOCCUS EPIDERMIDIS, HAEMOLYTICUS, LUGDUNENSIS, SAPROPHYTICUS (SUMWI153.961 - 24.689 ppm12/16/2024 7:34 AM EDTHealthTrackRx at LabPort STAPHYLOCOCCUS EPIDERMIDIS, HAEMOLYTICUS, LUGDUNENSIS, SAPROPHYTICUS (URINANot Rzhndpxh96.961 - 24.689 ppm12/16/2024 7:34 AM EDTHealthTrackRx at [facility] STAPHYLOCOCCUS EPIDERMIDIS, HAEMOLYTICUS, LUGDUNENSIS, SAPROPHYTICUS (URINA 28.268(A)19.961 - 24.689 ppm12/16/2024 7:34 AM EDTHealthTrackRx at [facility] STAPHYLOCOCCUS EPIDERMIDIS, HAEMOLYTICUS, LUGDUNENSIS, SAPROPHYTICUS (URINA Detected(A)19.961 - 24.689 ppm12/16/2024 7:34 AM EDTHealthTrackRx at [facility] TET B, TET M23.84(A)23.000 - 27.500 ppm12/16/2024 7:34 AM EDTHealthTrackRx at [facility] HospitalTET B, TET MDetected(A)23.000 - 27.500 ppm12/16/2024 7:34 AM EDT [facility] HospitalSpecimen (Source)Anatomical Location / Laterality Collection Method / VolumeCollection TimeReceived XqswMdrne50/20/2025 4:35 PM EDT10/ 1:27 AM EDT Narrative Authorizing ProviderResult TypeResult StatusAmy Rudi [facility] [address] BLOOD ORDERABLES Final ResultPerforming OrganizationAddressCity/State/ZIP CodePhone Number [facility] LabO[facility] [address] [place] [address] * RECURRENT VAGINITIS (HTRX) (12/14/2024 4:33 PM EDT)ComponentValueRef RangeTest MethodAnalysis TimePerformed AtPathologist SignatureATOPOBIUM LUKRNBW258.961 - 24.689 ppm12/16/2024 6:46 AM EDTHealthTrackRx at [facility] HospitalATOPOBIUM VAGINAENot Xpbicesk91.961 - 24.689 ppm12/16/2024 6:46 AM EDTHealthTrackRx at [facility] HospitalBVAB 2,3 (BACTERIAL VAGINOSIS ASSOCIATED BACTERIA 2, 3); MOBILUNCUS [id number] - 24.689 ppm12/16/2024 6:46 AM EDTHealthTrackRx at [facility] ServicesBVAB 2,3 (BACTERIAL VAGINOSIS ASSOCIATED BACTERIA 2, 3); MOBILUNCUS SPPNot [id number] - 24.689 ppm12/16/2024 6:46 AM EDTHealthTrackRx at [facility] HospitalCANDIDA ALBICANS, PARAPSILOSIS, PMJIUBCYSP119.000 - 30.347 ppm12/16/2024 6:46 AM EDT [facility] ServicesCANDIDA ALBICANS, PARAPSILOSIS, TROPICALISNot Detected 23.000 - 30.347 ppm12/16/2024 6:46 AM EDTHealthTrackRx at LabPortCANDIDA YVJVILIT034.000 - 31.618 ppm12/16/2024 6:46 AM EDTHealthTrackRx at [facility] ALLY GLABRATANot Nduhmved45.000 - 31.618 ppm12/16/2024 6:46 AM EDT [facility] CDPDLS028.000 - 30.873 ppm12/16/2024 6:46 AM EDTHealthTrackRx at [facility] ServicesCANDIDA KRUSEINot Xiuyzkbm90.000 - 30.873 ppm 12/16/2024 6:46 AM EDTHealthTrackRx at LabPortCHLAMYDIA CYLEEGELWIF132.000 - 31.586 ppm12/16/2024 6:46 AM EDTHealthTrackRx at LabPortCHLAMYDIA TRACHOMATIS Not Nkmdhczs72.000 - 31.586 ppm12/16/2024 6:46 AM EDTHealthTrackRx at LabPort GARDNERELLA YJPPFPEFY607.961 - 24.689 ppm12/16/2024 6:46 AM EDTHealthTrackRx at [facility] ServicesGARDNERELLA VAGINALISNot Qbynklvx91.961 - 24.689 ppm12/16/2024 6:46 AM EDTHealthTrackRx at LabPortMEGASPHAERA (TYPES 1, 2)019.961 - 24.689 ppm 12/16/2024 6:46 AM EDTHealthTrackRx at LabPortMEGASPHAERA (TYPES 1, 2)Not Sxkicuuo35.961 - 24.689 ppm12/16/2024 6:46 AM EDTHealth[facility]Rx at LabPort NEISSERIA UDLYXUMHGOI824.000 - 32.587 ppm12/16/2024 6:46 AM EDTHealthTrackRx at [facility] ServicesNEISSERIA GONORRHOEAENot Znegkjzv97.000 - 32.587 ppm12/16/2024 6:46 AM EDTHealthTrackRx at LabPortTRICHOMONAS ZFHJZSLJJ277.000 - 31.995 ppm 12/16/2024 6:46 AM EDTHealthTrackRx at LabPortTRICHOMONAS VAGINALISNot Drsibezb88.000 - 31.995 ppm12/16/2024 6:46 AM EDTHealth[facility] at LabPort MYCOPLASMA UNGVSXHHYB061.961 - 24.689 ppm12/16/2024 6:46 AM EDTHealthTrackRx at LabPortMYCOPLASMA GENITALIUMNot Lfxturno16.961 - 24.689 ppm12/16/2024 6:46 AM EDTHealthTrackRx at LabPortSpecimen (Source)Anatomical Location / LateralityCollection Method / VolumeCollection TimeReceived TimeTissue 12/14/2024 4:33 PM EDT1 1:27 AM EDT Narrative Authorizing ProviderResult TypeResult StatusAmy Greenwood PALAB BLOOD ORDERABLES Final ResultPerforming OrganizationAddressCity/State/ZIP CodePhone Number [facility] [address] [address] * [facility] DRUG SCREEN RAPID (URINE) (12/14/2024 3:31 PM EDT)ComponentValueRef Range Test MethodAnalysis TimePerformed AtPathologist SignatureCANNABINOID SCREEN URINENEGATIVENEGATIVETBHPHENCYCLIDINE SCREEN URINENEGATIVENEGATIVETBHCOCAINE SCREEN URINENEGATIVENEGATIVETBHMETHAMPHETAMINES SCREEN URINENEGATIVENEGATIVE TBHOPIATE SCREEN URINENEGATIVENEGATIVETBHAMPHETAMINE SCREEN URINENEGATIVE NEGATIVETBHBENZODIAZEPINES SCREEN URINENEGATIVENEGATIVETBHTRICYCLIC ANTIDEPRESSANT URINENEGATIVENEGATIVETBHMETHADONE SCREEN URINENEGATIVENEGATIVE TBHBARBITURATES SCREEN URINENEGATIVENEGATIVETBHOXYCODONE SCREEN URINENEGATIVE NEGATIVETBHBUPRENORPHINE SCREEN URINENEGATIVENEGATIVETBHComment: DRUG CLASS TEST SYSTEM CUT-OFF CONCENTRATIONS ARE FOLLOWS: AMP (Amphetamine): 500 ng/mL BAR (Barbiturates): 200 ng/mL BZO (Benzodiazepines): 150 ng/mL BUP (Buprenorphine): 10 ng/mL SALLY (Cocaine): 150 ng/mL mAMP (Methamphetamine): 500 ng/mL MTD (Methadone): 200 ng/mL OPI (Opiates): 100 ng/mL OXY (Oxycodone): 100 ng/mL PCP (Phencyclidine): 25 ng/mL THC (Cannabinoids): 50 ng/mL TCA (Trycyclic Antidepressants): 300 ng/mL Specimen (Source)Anatomical Location / LateralityCollection Method / Volume Collection TimeReceived Time12/14/2024 3:31 PM EDT1 8:41 PM EDT Narrative [facility]IN[facility] - 12/14/2024 9:17 PM EDT Authorizing ProviderResult TypeResult StatusGeneric External Data Provider CLINISYNCFinal ResultPerforming OrganizationAddressCity/State/ZIP CodePhone Number [facility] * IGP,APTIMA HPV,AGE GDLN (12/14/2024 3:31 PM EDT)ComponentValueRef RangeTest MethodAnalysis TimePerformed AtPathologist SignatureAGE GDLN ACOG TESTINGNote. TBHComment: ?? TESTS ? RESULT ??FLAG ??UNITS ?REF RANGE ??LAB ?? Clinician Provided Cytology Information ?? Source.............Endocervix ?? No. of containers..01 ThinPrep Vial Age Algo ACOG Lucy... ??- ? 01 ?FLAG LEGEND: ?L-Low Normal,H-High Normal,LL-Alert Low,HH-Alert High <-Panic Low,>-Panic High,A-Abnormal,AA-Critical Abnormal Performed at: 01 =G ?[facility] ?? [address] [place], [place] ??[phone] ?? Liana Slater MD, IGP, RFX APTIMA HPV ASCUNote.TBHComment: ?? TESTS ? RESULT ??FLAG ??UNITS ?REF RANGE ??LAB DIAGNOSIS: ?02 ?? NEGATIVE FOR INTRAEPITHELIAL LESION OR MALIGNANCY. Specimen adequacy: ?02 ?? Satisfactory for evaluation. ??Endocervical and/or squamous metaplastic ?? cells (endocervical component) are present. Performed by: ? 02 ?? Dion Rogel Member Of Parliament (ASCP) . ? 02 Note: ? Note ?02 ?? The Pap smear is a screening test designed to aid in the ?? detection of premalignant and malignant conditions of the ?? uterine cervix. ??It is not a diagnostic procedure and ?? should not be used as the sole means of detecting cervical ?? cancer. ??Both false-positive and false-negative reports do ?? occur. Test Methodology: ? Note ?02 ?? This liquid based ThinPrep(R) pap test was interpreted ?? using the DotBlu(R) Red Stampius(TM) Cervical Algorithm whole ?? slide imaging system. . ? 02 ?? The HPV DNA reflex criteria were not met with this specimen ?? result therefore, no HPV testing was performed. ?FLAG LEGEND: ?L-Low Normal,H-High Normal,LL-Alert Low,HH-Alert High <-Panic Low,>-Panic High,A-Abnormal,AA-Critical Abnormal Performed at: 02 WB ?[facility] ?? [address], [place] ??[address] ?? Liana Slater MD, Performed at: ??=G - [facility] ??[id number] Director Of Vital Statistics: Liana Slater MD, Phone: ??[phone] Performed at: ??WB - [facility] ??[id number] Director Of Vital Statistics: Liana Slater MD, Phone: ??[phone] Specimen (Source)Anatomical Location / LateralityCollection Method / Volume Collection TimeReceived Time12/14/2024 3:31 PM EDT1 8:41 PM EDT Narrative CLINISYNC - 12/18/2024 4:09 PM EDT SPATULA-ALONE ENDOCERVIX Authorizing ProviderResult TypeResult StatusAmy Rudimarc PRIETO BLOOD ORDERABLES Final ResultPerforming OrganizationAddressCity/State/ZIP CodePhone Number [facility] * PAP TEST, EXTERNAL (12/14/2024 12:00 AM EDT) Narrative Authorizing ProviderResult TypeResult StatusFazio Nurse Noms Bcp ObLAB CYTOLOGY ORDERABLESFinal ResultPerforming OrganizationAddressCity/State/ZIP CodePhone Number EXTERNAL LAB from Last 3 Months Insurance Care Teams Team MemberRelationshipSpecialtyStart DateEnd Date Unallocated, Anthony Chapman MD [address] [place] [address] PCP - GeneralFamily Medicine04/10/23
--- OUTSIDE RECORDS SUMMARY | 2025-01-19 08:46 | XMS_ITS | Encounter Summary ---
Author Organization [facility] tem Address [id number] [address] [place] [address] Care Team Providers Care Health And Fitness Instructor Name Role Phone Services, [facility] Primary Care Provider Encounter Details DateTypeDepartmentCare Team (Latest Contact Info)Dlvemsnwqyh86/11/2025Travel Social History Tobacco UseTypesPacks/DayYears UsedDateSmoking Tobacco: NeverSmokeless Tobacco: NeverAlcohol UseStandard Drinks/WeekCommentsNot Currently0 (1 standard drink = 0.6 oz pure alcohol)Overall Financial Resource Strain (CARDIA)AnswerDate RecordedHow hard is it for you to pay for the very basics like food, housing, medical care, and heating?Not hard at all09/05/2020HQ-2AnswerDate RecordedTotal Yszjv8001PRAPARE - TransportationAnswerDate RecordedIn the past 12 months, has lack of transportation kept you from medical appointments or from getting medications?No1Lack of Transportation (Non-Medical)Not on file 1AUDIT-CAnswerDate RecordedFrequency of Alcohol ConsumptionNot on file 12/23/2024Q2: How many drinks containing alcohol do you have on a typical day when you are drinking?Patient does not drink12/23/2024Frequency of Binge DrinkingNot on file12/23/2024hildcareAnswerDate RecordedDo problems getting child care associate teacher make it difficult for you to work or study?No09/05/2020mployment AnswerDate TkmvvkgnUbdfxksuacGaebkih58/06/2019Hunger ScreeningAnswerDate RecordedWithin the past 12 months we worried whether our food would run out before we got money to buy more.Never True12/22/2024Within the past 12 months the food we bought just didn't last and we didn't have money to get more.Never True12/22/2024Purpose - LifeAnswerDate RecordedPurpose and direction in life Pthzjfq05/10/2021Estimated Date of EiwopfqgIhvykqzgJum91/07/2026Based on last menstrual period of 07/25/2024Sex and Gender InformationValueDate Recorded Sex Assigned at BirthNot on fileLegal FgnNoawcv40/04/2015 2:21 PM EDTGender IdentityNot on fileSexual OrientationNot on filedocumented as of this encounter Plan of Treatment DateTypeDepartmentCare Team (Latest Contact Info)Eycgmycbvgm70/26/2025 1:00 PM ESTAppointment [facility] [address] [place] [phone] 01/28/2025 2:00 PM ESTTelemedicine Maternal- Medicine at [facility] [address] [place] [address] Pepe Vasquez MD [address] [facility], [address] [place] [address] documented as of this encounter Visit Diagnoses Not on filedocumented in this encounter Additional Health Concerns AssessmentNoted TimePHQ-9 Depression Total Score: 10:51 AM EDT documented as of this encounter Care Teams Team MemberRelationshipSpecialtyStart DateEnd [facility], [facility] [address] [place], [place] PCP - GeneralFamily Medicine03/12/17documented as of this encounter
--- OUTSIDE RECORDS SUMMARY | 2025-01-19 08:46 | XMS_ITS | Encounter Summary ---
Author Organization [facility] Address [address] [facility] [place] [address] Care Team Providers Care Medical Concierge Name Role Phone Unallocated, Noms Provider Primary Care Provi diane Encounter Details DateTypeDepartmentCare Team (Latest Contact Info)Pvbubezigbm64/13/2025bstract LALO DURBIN [address] [place] [address] Violetta Alejo MA Social History Tobacco UseTypesPacks/DayYears UsedDateSmoking Tobacco: NeverSmokeless Tobacco: NeverAlcohol UseStandard Drinks/WeekCommentsNot Currently0 (1 standard drink = 0.6 oz pure alcohol)Estimated Date of XxhjwmceJlfsgamjJgn32/07/2026ased on last menstrual period of 07/25/2024Sex and Gender InformationValueDate RecordedSex Assigned at BirthNot on fileLegal KdzMvihut19/15/2023 11:18 PM EDT Gender IdentityNot on fileSexual OrientationNot on filedocumented as of this encounter Plan of Treatment DateTypeDepartmentCare Team (Latest Contact Info)Edozwmmenut01/18/2025 1:30 PM ESTRoutine LALO DURBIN [address] [place] [address] Jeannette Grijalva PA [address] [place], [place] [id number] documented as of this encounter Visit Diagnoses Not on filedocumented in this encounter Care Teams Team MemberRelationshipSpecialtyStart DateEnd Date Unallocated, Noms ProviderMD [address] [place] [address] PCP - GeneralFamily Medicine04/10/23documented as of this encounter
--- OUTSIDE RECORDS SUMMARY | 2025-01-19 08:46 | XMS_ITS | Encounter Summary ---
Author Organization [facility] Address [address] [facility] [place] [address] Care Team Providers Care Procedure Manager Name Role Phone Unallocated, Noms Provider Primary Care Provi diane Encounter Details DateTypeDepartmentCare Team (Latest Contact Info)Ejhkldctrwi99/20/2025amboo flowsheet LALO DURBIN [address] [facility] [place] [address] Ronny Roa DO [address] [facility] [address] Wesley Arias, [facility] Social History Tobacco UseTypesPacks/DayYears UsedDateSmoking Tobacco: NeverSmokeless Tobacco: NeverAlcohol UseStandard Drinks/WeekCommentsNot Currently0 (1 standard drink = 0.6 oz pure alcohol)Estimated Date of AfqqxembGnpudjdxLrl42/07/2026Based on last menstrual period of 07/25/2024Sex and Gender InformationValueDate RecordedSex Assigned at BirthNot on fileLegal ZecPckzzu76/15/2023 11:18 PM EDT Gender IdentityNot on fileSexual OrientationNot on filedocumented as of this encounter Plan of Treatment DateTypeDepartmentCare Team (Latest Contact Info)Lxesezehbvo95/18/2025 1:30 PM ESTRoutine LALO DURBIN [address] [facility] [place] [address] Jeannette Grijalva PA [address] [facility] [place] [address] documented as of this encounter Visit Diagnoses Not on filedocumented in this encounter Care Teams Team MemberRelationshipSpecialtyStart DateEnd Date Unallocated, Noms Provider, [address] [place] [address] PCP - GeneralFamily Medicine04/10/23documented as of this encounter
--- OUTSIDE RECORDS SUMMARY | 2025-01-19 08:46 | XMS_ITS | Encounter Summary ---
Author Organization [facility] Address [address] [facility] [place] [address] Care Team Providers Care Ground Operations Supervisor Name Role Phone Unallocated, Noms Provider Primary Care Provi diane Encounter Details DateTypeDepartmentCare Team (Latest Contact Info)Jofsvxjpbuf73/24/2025Telephone NOMByron DURBIN [address] [place] [address] Daina Robins LPN Social History Tobacco UseTypesPacks/DayYears UsedDateSmoking Tobacco: NeverSmokeless Tobacco: NeverAlcohol UseStandard Drinks/WeekCommentsNot Currently0 (1 standard drink = 0.6 oz pure alcohol)Estimated Date of EfvvzpcoNyzdjiwyFci26/07/2026ased on last menstrual period of 07/25/2024Sex and Gender InformationValueDate RecordedSex Assigned at BirthNot on fileLegal BtmOnaueb07/15/2023 11:18 PM EDT Gender IdentityNot on fileSexual OrientationNot on filedocumented as of this encounter Miscellaneous Notes * Telephone Encounter - Daina Robins LPN - 11/18/2024 2:19 PM EDT Please refer to MFM for mono-di twin gestation documented in this encounter Plan of Treatment DateTypeDepartmentCare Team (Latest Contact Info)Oskvxbrpltl07/18/2025 1:30 PM ESTRoutine NOMByron DURBIN [address] [place] [address] Jeannette Grijalva PA [address] [place] [address] [place] [address] documented as of this encounter Visit Diagnoses Not on filedocumented in this encounter Care Teams Team MemberRelationshipSpecialtyStart DateEnd Date Unallocated, Noms Provider, [address] [address] PCP - GeneralFamily Medicine04/10/23documented as of this encounter
--- OUTSIDE RECORDS SUMMARY | 2025-01-19 08:46 | XMS_ITS | Clinical Summary ---
Author Organization [employer] Address [id number] [address] [place] [address] Care Team Providers Care Budget Assistant Name Role Phone Services, [facility] Primary Care Provider Allergies No known active allergies Medications MedicationSigDispense QuantityRefillsLast FilledStart DateEnd DateStatus ondansetron ODT (ZOFRAN ODT) 4 mg disintegrating tablet Dissolve 1 tablet (4 mg total) on tongue every 8 (eight) hours as needed for nausea for up to 10 doses. 10 tablet 5Active 21-iron fu-folic acid ( COMPLETE) 14 mg iron- 400 mcg tablet Take 1 tablet by mouth in the morning. 30 tablet 5Active ferrous sulfate 325 (65 FE) MG tablet Take 1 tablet (325 mg total) by mouth every other day. 7 tablet 5Active CEPHALEXIN ORAL Take by mouth every 8 (eight) hours.Active aspirin 81 mg Take 1 tablet once a day until delivery and then stop 90 tablet 5Active Active Problems ProblemNoted DateDiagnosed DateMonochorionic diamniotic twin , unspecified sxfsuleoo05/29/2025Pelvic pressure in , antepartum, third rwvlmmkut54/03/5958Wsrwrsrfl24/15/2021UTI (urinary tract infection)09/07/2020 Nqzdcohwwij64/14/2021Estimated Date of OwtoobrjRvwtdkauPur49/07/2026 Based on last menstrual period of 07/25/2024 Encounters DateTypeDepartmentCare YndrCktkuazxqok26/11/2025 3:15 PM EST - 01/05/2025 11:59 PM ESTHospital Encounter [facility] - Ultrasound [address] [place] [address] Monochorionic diamniotic twin gestation in second trimester Discharge Disposition: Home01/05/20252162Ozncyo05/10/7034Kpgisc86/29/2025 3:00 PM EDTOffice Visit Maternal- Medicine at [facility] [address] [place] [address] Willy Urrutia MD Docheva, Pepe oPpe MD 21 weeks gestation of (Primary Dx); Monochorionic diamniotic twin , unspecified vkrxuxjct20/29/2025 12:59 PM EDT - 12/23/2024 11:59 PM EDTHospital Encounter [facility] - [facility] US Imaging [address] [place] [address] Monochorionic diamniotic twin gestation in second trimester Discharge Disposition: Home12/23/20243384Kiuuha53/28/2025 3:02 AM EDT - 12/22/2024 6:07 AM EDTEmergency [facility] - Emergency [address] [place] [address] Ann Marie Lindsay MD Lightheaded (Primary Dx); Microcytic anemia; Hypokalemia Discharge Disposition: Home12/22/20240299Ndqsuy37/21/2025 3:15 PM EDT - 12/15/2024 11:59 PM EDTHospital Encounter [facility] - Ultrasound [address] [place] [address] Monochorionic diamniotic twin gestation in second trimester Discharge Disposition: Home12/15/20248100Xbmzmt60/03/2025Orders Only Maternal- Medicine at [facility] [address] [place] [address] Carley Johnson RN Monochorionic diamniotic twin gestation in second trimester (Primary Dx) 11/27/2024Orders Only Maternal- Medicine at [facility] [address] [facility] [place] [address] Carley Johnson RN Monochorionic diamniotic twin gestation in second trimester (Primary Dx) 11/27/2024Orders Only Maternal- Medicine at [facility] [address] [facility] [place] [address] Carley Johnson RN Monochorionic diamniotic twin gestation in second trimester (Primary Dx) 11/27/2024Telephone Maternal- Medicine at [facility] [address] [place] [address] Lee Meadows 11/25/2024 12:57 PM EDT - 11/25/2024 11:59 PM EDTHospital Encounter [facility] - [facility] US Imaging [address] [facility] [place] [address] Monochorionic diamniotic twin gestation in second trimester Discharge Disposition: Home11/25/20241793Dwudnt26/29/2025Orders Only Maternal- Medicine at [facility] [address] [place] [address] Lori Buck APRN-LUIS MIGUEL 11/23/2024bstract Maternal- Medicine at [facility] [address] [facility] [place] [address] External, Scanning Provider 11/20/2024Orders Only Maternal- Medicine at [facility] [address] [place] [address] Teresa Mercado RN Monochorionic diamniotic twin gestation in second trimester (Primary Dx)from Last 3 Months Family History Medical HistoryRelationNameCommentsNo Known ProblemsFatherNo Known Problems MotherNo Known ProblemsSister 1No Known ProblemsSister 2No Known ProblemsSister 3No Known ProblemsSister 4Breast cancerNeg HxColon cancerNeg HxOvarian cancerNeg HxRelationNameStatusCommentsFatherAliveMotherAliveSister 1AliveSister 2Alive Sister 3AliveSister 4Alive Social History Tobacco UseTypesPacks/DayYears UsedDateSmoking Tobacco: NeverSmokeless Tobacco: NeverAlcohol UseStandard Drinks/WeekCommentsNot Currently0 (1 standard drink = 0.6 oz pure alcohol)Overall Financial Resource Strain (CARDIA)AnswerDate RecordedHow hard is it for you to pay for the very basics like food, housing, medical care, and heating?Not hard at all09/05/2020HQ-2AnswerDate RecordedTotal Dpywk077RAPARE - TransportationAnswerDate RecordedIn the past 12 months, has lack of transportation kept you from medical appointments or from getting medications?No09/05/2020ack of Transportation (Non-Medical)Not on file 1AUDIT-CAnswerDate RecordedFrequency of Alcohol ConsumptionNot on file 12/23/2024Q2: How many drinks containing alcohol do you have on a typical day when you are drinking?Patient does not drink12/23/2024Frequency of Binge DrinkingNot on file12/23/2024hildcareAnswerDate RecordedDo problems getting home child care provider make it difficult for you to work or study?No09/05/2020mployment AnswerDate BldqjgwfZkfncnlbjhNlmmrun75/06/2019Hunger ScreeningAnswerDate RecordedWithin the past 12 months we worried whether our food would run out before we got money to buy more.Never True12/22/2024Within the past 12 months the food we bought just didn't last and we didn't have money to get more.Never True12/22/2024Purpose - LifeAnswerDate RecordedPurpose and direction in life Jpkadqv6004/06/2020Estimated Date of JloezyoxBasupmutNhj85/07/2026ased on last menstrual period of 07/25/2024Sex and Gender InformationValueDate Recorded Sex Assigned at BirthNot on fileLegal WegUonanf44/04/2015 2:21 PM EDTGender IdentityNot on fileSexual OrientationNot on file Last Filed Vital Signs Vital SignReadingTime TakenCommentsBlood Ufviabhp675/6710 2:26 PM EDT Zmtos906212/23/2024 2:26 PM VIMDrnjckdxrjy70.8 ??C (98.2 ??F)12/22/2024 3:13 AM EDTRespiratory Yxmb3723 5:15 AM EDTOxygen Zxstetrqlg329%12/22/2024 5:15 AM EDTInhaled Oxygen Concentration--Daaqts34.4 kg (115 lb 9.6 oz)12/23/2024 2:26 PM IOXOffbuq261.5 cm (5' 2 )12/23/2024 2:26 PM EDTBody Mass Index21.141 2:26 PM EDT Plan of Treatment DateTypeDepartmentCare Team (Latest Contact Info)Gdrmenbrkfj74/26/2025 1:00 PM ESTAppointment [facility] US Imaging [address] [place] [address] 01/28/2025 2:00 PM ESTTelemedicine Maternal- Medicine at [facility] [address] [place] [address] Pepe Vasquez MD [address] [address] Health MaintenanceDue DateLast DoneCommentsDepression Bxrmwdlet90/19/2015 Chlamydia Mvxexjcql14/1Pap Smear4DTaP,Tdap and Td Vaccines (7 - Td or Tdap)/, 06/26/2007, 12/24/2003, Additional history existsInfluenza Gmzdwpc74/02/2011RSV ( or age 60+ yrs) (1 - Risk 1-dose series)03/06/2025dult BMI Screening Tobacco Psbbthbhz21 Medical Devices Not on file Procedures Procedure NamePriorityDate/TimeAssociated DiagnosisCommentsUS MFM LMTD OB, 1 OR MORE CWEWRKdwtcyz35/11/2025 4:03 PM EST Monochorionic diamniotic twin gestation in second trimester US [facility] OB FOLLOW-UP, 1 DYUVSEekpbit18/29/2025 4:05 PM EDT Monochorionic diamniotic twin gestation in second trimester BLUE NGTJDSS1012/22/2024 3:57 AM EDT IRON AND TIBCSTAT Add-on12/22/2024 3:57 AM EDT RAINBOW QKPOOHOB89/28/2025 3:57 AM EDT MVIFWHJWOB03/28/2025 3:57 AM EDT TROPONIN I, HIGH SENSITIVITY 0 XRMQQEHI49/28/2025 3:57 AM EDT TROPONIN I, HIGH SENSITIVITY 0 YQANKQOL91/28/2025 3:57 AM EDT COMPREHENSIVE METABOLIC UTHMGYJVO81/28/2025 3:57 AM EDT CBC WITH AUTO PEXOFTZVAIGWWKRU68/28/2025 3:57 AM EDT ECG 12-KBLJRTKQ60/28/2025 3:09 AM EDT [facility] LMTD OB, 1 OR MORE ZYXJKCqqtzqi04/21/2025 4:03 PM EDT Monochorionic diamniotic twin gestation in second trimester [facility] COMPREHENSIVE [facility]ATOMIC FQDPYLQxmtfpw87/01/2025 3:09 PM EDT Monochorionic diamniotic twin gestation in second trimester UNLISTED LAB ZYSBDsqjtgl34/02/2025 3:26 PM EDTUNLISTED LAB PVRRWxcqpiv78/29/2025 3:25 PM EDTCHLAMYDIA/GC BY PCR MOIRA XBZWIBCT21/16/2021 7:55 PM EDT from Last 3 Months or Most Recently Relevant to Health Maintenance Results * US MFM LMTD OB, 1 OR MORE FETUS (01/05/2025 4:03 PM EST) Only the most recent of4 resultswithin the time period is included. Anatomical RegionLateralityModalityOB-GYNUltrasoundSpecimen (Source)Anatomical Location / LateralityCollection Method / VolumeCollection TimeReceived Time 01/05/2025 3:33 PM EST Narrative 01/05/2025 4:23 PM EST NAME: ??ISSA HEWITT : 2000 SEX: F Accession Number: [id number] ORDERING PHYSICIAN: WILLY URRUTIA REFERRING PHYSICIAN: HILL CENTENO Coding Procedures ? 42041: Ultrasound, uterus, real time with image documentation, limited one or more fetuses ? 38034: Doppler velocimetry, ; middle cerebral artery. 2 Indication [place]-Di twin . History OB History ? 2. Para 1 ? W5M1B6B2 Current Cell free DNA ?Low Risk analysis [...] MVP measures 3.2 cm. Recommendations Please see [facility] recommendations from prior clinical and/or ultrasound report documentation. Subsequent follow up or other follow up as clinically determined by primary OB provider unless otherwise specified by M. Results forwarded to ordering provider so they can follow up with the patient as necessary. Procedure Note Carlos Curry MD - 01/05/2025 NAME: ISSA HEWITT : 2000 SEX: F Accession Number: [id number] ORDERING PHYSICIAN: WILLY URRUTIA REFERRING PHYSICIAN: HILL CENTENO Coding Procedures 19537: Ultrasound, uterus, real time with image documentation, limited one or more fetuses 92249: Doppler velocimetry, ; middle cerebral artery. 2 Indication [place]-Di twin . History OB History 2. Para 1 E7V6L9H9 Current Cell free DNA Low Risk analysis [...] MVP measures 3.2 cm. Recommendations Please see M recommendations from prior clinical and/or ultrasoundreport documentation. Subsequent follow up or other follow up as clinically determined byprimary OB provider unless otherwise specified by M. Results forwarded to ordering provider so they can follow up with thepatient as necessary. Authorizing ProviderResult TypeResult StatusWilly Urrutia MDG US ORDERABLES Final Result * Troponin I, High Sensitivity 0 Hour (12/22/2024 3:57 AM EDT)ComponentValueRef RangeTest MethodAnalysis TimePerformed AtPathologist SignatureTROPONIN I, HIGH SENSITIVITY<2<16 ng/L1 4:29 AM [facility] Specimen (Source)Anatomical Location / LateralityCollection Method / Volume Collection TimeReceived TimeBloodVenous blood / Hahtmwb4112/22/2024 3:57 AM EDT 12/22/2024 4:02 AM EDT Narrative Authorizing ProviderResult TypeResult StatusAnn Marie DANGELO BLOOD ORDERABLES Final ResultPerforming OrganizationAddressCity/State/ZIP CodePhone Number [facility] [address] [place] [address], * (ABNORMAL) CBC auto differential (12/22/2024 3:57 AM EDT)ComponentValueRef RangeTest MethodAnalysis TimePerformed AtPathologist SignatureWBC7.84 - 11 x10E9/L1 4:05 AM [facility]RBC Count3.21 (L)3.8 - 5.2 X10E12/L1 4:05 AM [facility] Hemoglobin8.3(L)11.7 - 15.5 g/dL12/22/2024 4:05 AM [facility]ALTHHematocrit24.9(L)35 - 47 %12/22/2024 4:05 AM EDOH[facility]HE[facility]PITALMCV78(L)80 - 100 fL12/22/2024 4:05 AM EDOHIOHE[facility] HOSPITALMCH25.7(L)27 - 34 pg12/22/2024 4:05 AM [facility]ALTHMCHC33.232 - 36 g/dL12/22/2024 4:05 AM [facility]ALTHRDW15.3(H)11.5 - 15 %12/22/2024 4:05 AM [facility]ALTHPlatelet Gftsi956712 - 450 X10E9/L1 4:05 AM EDOHIOHEALTH PICKERINGTON METHODIST HOSPITALMPV7.27 - 12 fL12/22/2024 4:05 AM EDT [facility]STNeutrophils %70.5%12/22/2024 4:05 AM EDT [facility] WESTLymphocytes %19.0%12/22/2024 4:05 AM EDT [facility] HOSPITALMonocytes %8.9%12/22/2024 4:05 AM EDT [facility] WESTEosinophils %1.2%12/22/2024 4:05 AM EDT [facility]STBasophils %0.4%12/22/2024 4:05 AM EDT [facility] WESTNeutrophils Absolute (A)5.51.5 - 6.6 10*3/uL12/22/2024 4:05 AM EDTPST. MARY'S MEDICAL [facility]ENTER, IRONTON CAMPUSLymphocytes Absolute1.51.0 - 3.5 10*3/uL12/22/2024 4:05 AM EDOHIOHEALTH PICKER[facility] HOSPITALMonocytes Absolute0.70.0 - 0.9 10*3/uL12/22/2024 4:05 AM [facility] HEALTHEosinophils Absolute0.10.0 - 0.4 10*3/12/22/2024 4:05 AM [facility]ALTHBasophils Absolute0.00.0 - 0.2 10*3/12/22/2024 4:05 AM [facility]ALTHDifferential TypeAUTOMATED MMVYAZEPMIWV08/28/2025 4:05 AM [facility] (Source)Anatomical Location / LateralityCollection Method / VolumeCollection TimeReceived TimeBloodVenous blood / Yisskkm0212/22/2024 3:57 AM EDT1 4:02 AM EDT Narrative Authorizing ProviderResult TypeResult StatusStacy Dyvalentinas MDLAB BLOOD ORDERABLES Final ResultPerforming OrganizationAddressCity/State/ZIP CodePhone Number [address] [place] [address], [place] * Light Blue Top (12/22/2024 3:57 AM EDT)ComponentValueRef RangeTest Method Analysis TimePerformed AtPathologist SignatureExtra TubeAuto Resulted 12/22/2024 5:03 AM [place] (Source) Anatomical Location / LateralityCollection Method / VolumeCollection Time Received TimeBloodVenous blood / Lzwkugo4012/22/2024 3:57 AM EDT1 4:02 AM EDT Narrative Authorizing ProviderResult TypeResult StatusStacy Dyvalentinas MDLAB BLOOD ORDERABLES Final ResultPerforming OrganizationAddressty/State/ZIP CodePhone Number [address] [place] [address], [place] * (ABNORMAL) Iron and TIBC (12/22/2024 3:57 AM EDT)ComponentValueRef RangeTest MethodAnalysis TimePerformed AtPathologist QthdkpeygAYOS20(L)50 - 170 ug/dL 12/22/2024 10:18 AM [facility] VKDJMIWGHKJTVFISPRVNU136(H)168 - 336 mg/dL12/22/2024 10:18 AM [facility] LABORATORYIRON PDPOUUM200(H)250 - 425 ug/dL12/22/2024 10:18 AM [facility] LABORATORYIRON SATURATION2(L)15 - 50 % UQUHRYXLFX23/28/2025 10:18 AM [facility] LABORATORYSpecimen (Source)Anatomical Location / Laterality Collection Method / VolumeCollection TimeReceived TimeBloodVenous blood / Rxvlqfg9012/22/2024 3:57 AM EDT1 4:02 AM EDT Narrative Authorizing ProviderResult TypeResult StatusStacy Neftali MDLAB BLOOD ORDERABLES Final ResultPerforming OrganizationAddressCity/State/ZIP CodePhone Number [facility] [address] [place] [address], [place] [phone] * Lipase (12/22/2024 3:57 AM EDT)ComponentValueRef RangeTest MethodAnalysis Time Performed AtPathologist UkuossuxbLYVYUU7310 - 40 U/L1 4:18 AM EDT [facility]pec[facility] (Source)Anatomical Location / LateralityCollection Method / VolumeCollection TimeReceived TimeBloodVenous blood / Vvrirer9712/22/2024 3:57 AM EDT1 4:02 AM EDT Narrative Authorizing ProviderResult TypeResult StatusStacy Dybas MDLAB BLOOD ORDERABLES Final ResultPerforming OrganizationAddressCity/State/ZIP CodePhone Number [facility] [address] [facility] [place] [address], [place] * (ABNORMAL) Comprehensive metabolic panel (12/22/2024 3:57 AM EDT)Component ValueRef RangeTest MethodAnalysis TimePerformed AtPathologist SignatureSODIUM 133(L)134 - 146 mmol/L1 4:21 AM EDTPST. MARY'S MEDICAL CENTER, IRONTON CAMPUSPOTASSIUM3.4(L)3.5 - 5.0 mmol/L1 4:21 AM EDTPST. MARY'S MEDICAL CENTER, IRONTON CAMPUSCHLORIDE10298 - 109 mmol/L1 4:21 AM [facility] CCJIRUD6895 - 32 mmol/L1 4:21 AM EDT [facility] WESTANION GAP85 - 15 mmol/L1 4:21 AM [facility]ALTHBLOOD UREA KDZNBJSF94 - 23 mg/dL 12/22/2024 4:21 AM [facility] HEALTHCREATININE0.36(L)0.40 - 1.00 mg/dL12/22/2024 4:21 AM [facility]Comment: METHOD TRACEABLE TO IDMS PVFMJDEMJUJSNPJ6554 - 99 mg/dL12/22/2024 4:21 AM T [facility] WESTCALCIUM8.4(L)8.5 - 10.5 mg/dL12/22/2024 4:21 AM [facility]ALTHTOTAL PROTEIN6.16.0 - 8.0 g/dL 12/22/2024 4:21 AM [facility] HEALTHALBUMIN2.7(L)3.2 - 5.3 g/dL12/22/2024 4:21 AM [facility]ALTHALKALINE ZVDJXHXTACJ4573 - 130 U/L1 4:21 AM [facility]ALTHAST16<=41 U/L1 4:21 AM [facility] ALT6<=31 U/L1 4:21 AM [facility] BILIRUBIN,TOTAL0.70.3 - 1.2 mg/dL12/22/2024 4:21 AM [facility] HEALTHEGFR Non-Race Dependent>90>=60 ml/min/1.73sq.m1 4:21 AM [facility]ALTHComment: eGFR not reported due to non-numeric value for Creatinine. Reported eGFR is based on the CKD-EPI 2020 equation that does not use a race coefficient. Specimen (Source)Anatomical Location / LateralityCollection Method / Volume Collection TimeReceived TimeBloodVenous blood / Inqeaia9812/22/2024 3:57 AM EDT 12/22/2024 4:02 AM EDT Narrative Authorizing ProviderResult TypeResult StatusStacy Dybas MDLAB BLOOD ORDERABLES Final ResultPerforming OrganizationAddressCity/State/ZIP CodePhone Number [facility] [address] [place] [address], * ECG 12 lead (12/22/2024 3:09 AM EDT)Specimen (Source)Anatomical Location / LateralityCollection Method / VolumeCollection TimeReceived Time12/22/2024 3:09 AM EDT Narrative [facility] - 12/22/2024 4:55 AM EDT Authorizing ProviderResult TypeResult StatusStacy Dybas MDECG ORDERABLESFinal ResultPerforming OrganizationAddressCity/State/ZIP CodePhone Number [facility] * Unlisted Lab Test (10/27/2024 3:26 PM EDT) Only the most recent of2 resultswithin the time period is included. Narrative Authorizing ProviderResult TypeResult StatusAna Paulaelvin Buck PIPE CHANGER-CNMLAB BLOOD ORDERABLESFinal ResultPerforming OrganizationAddressCity/State/ZIP CodePhone Number MANUALLY TRANSCRIBED RESULTS * Chlamydia/GC by PCR Moira Swab (08/10/2020 7:55 PM EDT)ComponentValueRef Range Test MethodAnalysis TimePerformed AtPathologist SignatureSpecimen sourceVS 08/10/2020 8:06 PM [facility] CENTERChlamydia DNA PCRNegative Negative^Rldshmdc20/18/2021 12:55 PM [facility] LABComment: ? Chlamydia trachomatis not detected by nucleic acid amplification. This does not exclude the possibility of infection because results are dependent on adequate specimen collection. ? Gonorrhea DNA PCRNegativeNegative^Ltuaqcpi85/18/2021 12:55 PM [facility] LABComment: ? Neisseria gonorrhoeae not detected by nucleic acid amplification. This does not exclude the possibility of infection because results are dependent on adequate specimen collection. ? Specimen (Source)Anatomical Location / LateralityCollection Method / Volume Collection TimeReceived JlmdIZVZ35/16/2021 7:55 PM EDT08/11/2020 11:00 AM EDT Narrative Authorizing ProviderResult TypeResult StatusCorey Dc MDMICROBIOLOGY - GENERAL ORDERABLESFinal ResultPerforming OrganizationAddressCity/State/ZIP Code Phone Number [facility] [address] [facility] [place] [address] [facility] [address] [place] [address] from Last 3 Months or Most Recently Relevant to Health Maintenance Insurance Care Teams Team MemberRelationshipSpecialtyStart DateEnd Date Services, [facility] [address] [place], [place] PCP - GeneralFamily Medicine03/12/17
--- OUTSIDE RECORDS SUMMARY | 2025-01-19 08:47 | XMS_ITS | CCD ---
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 (RBC) [Entitic vol]83 qGWtyjvf57-586RgtIsfras Fremont HospitalComment on above:Performed By: #### CBCJoe, PINR, 15499-5, CMP #### [facility] ([id number]) [address] [place] [address] 06574Azjapslwx (Bld) [#/Vol]0.7 10*3/uLNormal0-0.9[facility], Edwin ShawComment on above:Performed By: #### FREDERICK, PINR, 30187-6, CMP #### [facility] ([id number]) [address] [place] [address] 56066Egzsyrsmw/100 WBC (Bld)9.5 %[facility] Comment on above:Performed By: #### CBCJoe, PINR, 97170-1, CMP #### [facility] ([id number]) [address] [place] [address] 71938Qhckohnogdk/100 WBC (Bld)75.5 %[facility] Comment on above:Performed By: #### CBCA, PINR, 82215-3, CMP #### [facility] ([id number]) [address] [place] [address] 27617Vkydzije mean volume (Bld) [Entitic vol]7.9 fLNormal7-12 [facility], [facility] ShawComment on above:Performed By: #### CBCJoe, PINR, 32948- 9, CMP #### [facility] ([id number]) [address] [place] [address] 45895Faahcsoac (Bld) [#/Vol]190 10*3/tAUyybwu015-575ZwiGrnkrx Fremont HospitalComment on above:Performed By: #### KARON MACK, 49045-2, CMP #### [facility] ([id number]) [address] [place] [address] 87125LMR COUNT4.12 X10E12/LNormal3.80-5.20ProPampa Regional Medical Center Comment on above:Performed By: #### KARON MACK, 74210-6, CMP #### [facility] ([id number]) [address] [place] [address] 94647OAZ (Bld) [#/Vol]6.9 10*3/uLNormal4.0-11.0ProPampa Regional Medical CenterComment on above:Performed By: #### PETE MACKR, 68970-6, CMP #### [facility] ([id number]) [address] [place] [address] 12497NXDQCJRORXPYO METABOLIC PANELon 82-85-1943Lqyoofy [Mass/Vol]3.1 g/dLLow3.2-5.3PGood Samaritan HospitalComment on above:Performed By: #### KARON MACK, 25431-5, CMP #### [facility] ([id number]) [address] [place] [address] 25906NIX [Catalytic activity/Vol]48 U/UWqtmda36-768UukDwmsydPampa Regional Medical CenterComment on above:Performed By: #### FREDERICK PINR, 45439-3, CMP #### [facility] ([id number]) [address] [place] [address] 09479BFO [Catalytic activity/Vol]13 U/LNormal0-31PGood Samaritan HospitalComment on above:Performed By: #### PETE MACKR, 13019-4, CMP #### [facility] ([id number]) [address] [place] [address], [place] [address] gap [Moles/Vol]8 mmol/LNormal5-15ProPampa Regional Medical CenterComment on above:Performed By: #### FREDERICK, PINR, 15588-4, CMP #### [facility] ([id number]) [address] [place] [address], [place] [address]HXE [Catalytic activity/Vol]16 U/LNormal0-41ProPampa Regional Medical CenterComment on above:Performed By: #### PETE MACKR, 62576-1, CMP #### [facility] ([id number]) [address] [place] [address], [place] [address]Xjcozstvz [Mass/Vol]0.5 mg/dLNormal0.3-1.2PGood Samaritan HospitalComment on above:Performed By: #### PETE MACKR, 64087-4, CMP #### [facility] ([id number]) [address] [place] [address], [place] [address]Ifndzfa [Mass/Vol]8.4 mg/dLLow8.5-10.5PGood Samaritan HospitalComment on above:Performed By: #### FREDERICK, PINR, 78668-4, CMP #### [facility] ([id number]) [address] [place] [address], [place] [address]Ljjkcetq [Moles/Vol]99 mmol/ZEwzlwd34-630TrcOfgbjvPampa Regional Medical CenterComment on above:Performed By: #### FREDERICK, PINR, 39317-8, CMP #### [facility] ([id number]) [address] [place] [address], [place] [address]YF8 [Moles/Vol]26 mmol/LGthejr41-63HbmAtyvblGood Samaritan Hospital Comment on above:Performed By: #### FREDERICK, PINR, 95166-1, CMP #### [facility] ([id number]) [address] [place] [address] 81259Lusqiuoxns [Mass/Vol]0.41 mg/dLNormal0.40-1.00ProPampa Regional Medical CenterComment on above:Result Comment: METHOD TRACEABLE TO IDMS STANDARD Performed By: #### KARON MACK, 83707-4, CMP #### [facility] ([id number]) [address] [place] [address] 42271zPII (CKD-EPI) NON-RACE DEPENDENT>90Normal>59ProPampa Regional Medical CenterComment on above:Result Comment: Reported eGFR is based on the CKD-EPI 2020 equation that does not use a race coefficient.Performed By: #### KARON MACK, 90332-2, CMP #### [facility] ([id number]) [address] [place] [address] 24037Emmahcw [Mass/Vol]104 mg/tGHjwc97-86KyeZryhjrPampa Regional Medical Center Comment on above:Performed By: #### KARON MACK, 51238-9, CMP #### [facility] ([id number]) [address] [place] [address] 78917Netssyvmb [Moles/Vol]3.5 mmol/LNormal3.5-5.0ProPampa Regional Medical CenterComment on above:Performed By: #### KARON MACK, 68318-8, CMP #### [facility] ([id number]) [address] [place] [address] 64911Ylnnakg [Mass/Vol]7.0 g/dLNormal6.0-8.0ProPampa Regional Medical CenterComment on above:Performed By: #### KARON MACK, 20343-6, CMP #### [facility] ([id number]) [address] [place] [address] 90518Xlrjcy [Moles/Vol]133 mmol/FCyz958-690DedJyhejdPampa Regional Medical CenterComment on above:Performed By: #### CBCA, PINR, 36754-4, CMP #### [facility] ([id number]) [address] [place] [address] 94433Pypr nitrogen [Mass/Vol]7 mg/dLNormal5-23[facility], [facility] ShawComment on above:Performed By: #### FREDERICK, PINR, 94673-9, CMP #### [facility] ([id number]) [address] [place] [address] 88376FRWEQIC AND INRon 62-48-4269LAI Coag (PPP) [Relative time]1.1 {INR}Normal0.8-1.1PGood Samaritan HospitalComment on above:Performed By: #### FREDERICK, PINR, 08248-7, CMP #### [facility] ([id number]) [address] [place] [address] 36471ZI Coag (PPP) [Time]12.5 sNormal9.8-13.2PGood Samaritan HospitalComment on above:Result Comment: NEW REFERENCE RANGEPerformed By: #### FREDERICK, PINR, 83421-1, CMP #### [facility] ([id number]) [address] [place] [address] 98020tFMS Coag (PPP) [Time]on 67-36-3228bLUT Coag (Bld) [Time]40 s Tcqj71-95QueWjjsslSelect Medical Cleveland Clinic Rehabilitation Hospital, Edwin ShawComment on above:Result Comment: NEW REFERENCE RANGEPerformed By: #### CBCA, PINR, 33656-0, CMP #### [facility] ([id number]) [address] [place] [address] 69058CM OB TRANSVAGINALon 04-84-7427[address] [address] Ultrasound Report Signed Patient: Naye Parsons MR#: [id number] : 2000 Acct:[id number] Age/Sex: 23 / F ADM Date: 03/31/24 Loc: US Attending Dr: ASHER BUCK APRN, CNM Ordering Physician: ASHER BUCK APRN, CNM Date of Service: 03/31/24 Procedure(s): US OB transvaginal Accession Number(s): [id number] cc: ASHER BUCK APRN, CNM [facility] [place] [id number] Patient Name: NAYE PARSONS MRN: [facility]:[id number] date: 2000 Sex: F Assigned Patient Location: US Current Patient Location: US Accession/Order Number: [id number] Exam Date: 03/31/2024 09:08 Report Date: 03/31/2024 [...] M.D. Signed By: 03/31/2450 DD/ 6 TD/TT: Attic Fans Mechanic:TBHRadiology, Radiologist, - 03/31/2024 [place] [address] Ultrasound Report Signed Patient: Naye Parsons MR#: [id number] : 2000 Acct:[id number] Age/Sex: 23 / F ADM Date: 03/31/24 Loc: US Attending Dr: ASHER BUCK APRN, CNM Ordering Physician: ASHER BUCK APRN, CNM Date of Service: 03/31/24 Procedure(s): US OB transvaginal Accession Number(s): [id number] cc: ASHER BUCK APRN, CNM [place] [id number] Patient Name: NAYE PARSONS MRN: [id number] date: 2000 Sex: F Assigned Patient Location: US Current Patient Location: US Accession/Order Number: [id number] Exam Date: 03/31/2024 09:08 Report Date: 03/31/2024 [...] Dictated By: Mike Morrell M.D. Signed By: 03/31/24949 DD/ 6 TD/TT: Attic Fans Mechanic: LALO HealthcareRadiology Study observation (narrative)LALO HassanUS OB TRANSVAGINALOrdered By: Radiologist Radiology on 27-47-9625[facility] Work Phone: HCG ( test) Ql (U)on 15-66-2649Eiaa HCG ( test) Ql (U)PositiveAbnormalNEGProMedica San Ramon Regional Medical CenterComment on above:Performed By: #### 2106-3 #### [facility] ([id number]) [address] [facility], FIRST FLOOR [place], [place] [address]UOLR/FLU A+B/RSV by NAAT/Molecularon 50-22-0342EXLO/FLU A+B/RSV by NAAT/MolecularFLU A PCR Negative (qualifier value) FLU B [...] operators who are performing tests using either [employer] or [employer] systems and is limited to laboratories that [...] specimen repeat. Fact Sheet for Healthcare Providers: https://www.fda.gov/media/870595/download Fact Sheet for Patients: https://www.fda.gov/media/652057/downloadNormalProPampa Regional Medical CenterURN YUMI NURon 69-76-1866QLKDFBWQJ NURNegativeNormalNEGProPampa Regional Medical CenterComment on above:Performed By: #### NUM #### [facility] ([id number]) [address] [place] [address] 80577XFUEF/HGB NURNegativeNormalNEGProPampa Regional Medical CenterComment on above:Performed By: #### NUM #### [facility] ([id number]) [address] [place] [address] 33018KTNVVQC NURNegativeNormalNEGSelect Medical Cleveland Clinic Rehabilitation Hospital, Edwin ShawComment on above:Performed By: #### NUM #### [facility] ([id number]) [address] [place] [address] 54555CSOKZHF NUR15 mg/dLAbnormalNEGProPampa Regional Medical CenterComment on above:Performed By: #### NUM #### [facility] ([id number]) [address] [place] [address] [place] [address]GNYNTIOKZ ESTERASE NURTraceAbnormutNEGSelect Medical Cleveland Clinic Rehabilitation Hospital, Edwin ShawComment on above:Performed By: #### NUM #### [facility] ([id number]) [address] [place] [address] 97061OWCYEXF NURNegativeNormalNEGProPampa Regional Medical CenterComment on above:Performed By: #### NUM #### [facility] ([id number]) [address] [place] [address] 10106JD NUR5.6Xbannk9.0-8.5ProMedica San Ramon Regional Medical CenterComment on above:Performed By: #### NUM #### [facility] ([id number]) [address] [place] [address] 90522BMVAFGO NUR30 mg/dLAbnormalNEGProPampa Regional Medical CenterComment on above:Performed By: #### NUM #### [facility] ([id number]) [address] [place] [address] 43888TXDTPKCT GRAVITY RENETTA>=1.473Uekazv6.003-1.035ProPampa Regional Medical CenterComment on above:Performed By: #### NUM #### [facility] ([id number]) [address] [place] [address], [place], [place] [address]DBIJIYFPXEMS NUR0.2 eu/dLNormal<1.1ProMedArroyo [facility] Community Hospital Comment on above:Performed By: #### NUM #### [facility] ([id number]) [address] [place] [address] 55008YQJF SCREEN MULTI URINEon 94-47-3432Qyreyrrrvwf Screen, Ur NegativeNEGATIVEMercy HealthBarbiturate Screen, UrNegativeNEGATIVEMercy Health Benzodiazepine Screen, UrineNegativeNEGATIVEMercy HealthBuprenorphine Urine NegativeNEGATIVEMercy HealthCannabinoid Scrn, UrNegativeNEGATIVEMercy Health Cocaine Metabolite, UrineNegativeNEGATIVEMercy HealthMDMA, UrineNOT REPORTED NEGATIVEMercy HealthMethadone Screen, UrineNegativeNEGATIVEMercy Health Methamphetamine, UrineNegativeNEGATIVEMercy HealthOpiates, UrineNegativeNEGATIVE [facility] HealthOxycodone Screen, UrNegativeNEGATIVEMercy HealthPhencyclidine, Urine NegativeNEGATIVEMercy HealthPropoxyphene, UrineNegativeNEGATIVEMercy HealthTest InformationNOT REPORTEDMercy HealthTricyclic Antidepressants, UrineNegative NEGATIVEMercy HealthComment on above:Drug screen results are to be used for medical purposes only. All positive results are unconfirmed. Testing for employment or legal uses should be sent to a reference laboratory for confirmation. [facility] Bryan HospitalDrug Scr, Abuse, Uron 80-17-4060Vncxyqjluma(s),UrNegativeNormalNEG [facility] HospitalComment on above:Performed By: #### BEKAH #### [facility] [address] [place] [address] Tenter Feeder: Edilson Crisostomo MDBarbiturate(s),UrNegativeNormalNEGMercy Isaban HospitalComment on above:Performed By: #### BEKAH #### [address] [place], [place] [address] Tenter Feeder: Edilson Crisostomo MDBenzodiazepine(s)NegativeNormalNEGMercy Isaban HospitalComment on above:Performed By: #### BEKAH #### [address] [place] [address] Tenter Feeder: Edilson Crisostomo MDBuprenorphrine, UrNegativeNormalNEGMercy Isaban HospitalComment on above:Performed By: #### BEKAH #### [address] [place], [place] [address] Tenter Feeder: LINDSEY Lynannabinoid(s),UrNegativeNormalNEGMercy Isaban HospitalComment on above:Performed By: #### BEKAH #### [address] [place], [place] [address] Tenter Feeder: LINDSEY Lynocaine MetaboliteNegativeNormalNEGMercy Isaban HospitalComment on above:Performed By: #### BEKAH #### [address] [place], [facility]83 Tenter Feeder: TRAVIS Lynethadone Ql (U)NegativeNormalNEGMercy Isaban HospitalComment on above:Performed By: #### BEKAH #### [address] [place], [place] [address] Tenter Feeder: TRAVIS Lynethamphetamine, UrNegativeNormalNEGMercy Isaban HospitalComment on above:Performed By: #### BEKAH #### [facility] [address] [place] [address] [place] [address] Tenter Feeder: Edilson Crisostomo MDOpiate(s), UrNegativeNormalNEGMercy Isaban HospitalComment on above:Performed By: #### BEKAH #### [address] [place], [place] [address] Tenter Feeder: Edilson Crisostomo MDOxycodone, UrineNegativeNormalNEGMercy Isaban HospitalComment on above:Performed By: #### BEKAH #### [address] [place], [place] [address] Tenter Feeder: HUMBERTO Lynhencyclidine, UrNegativeNormalNEGMercy Isaban HospitalComment on above:Performed By: #### BEKAH #### [address] [place] [address] Tenter Feeder: HUMBERTO Lynropoxyphene,UrineNegativeNormalNEGMercy Isaban HospitalComment on above:Performed By: #### BEKAH #### [address] [place] [address] Tenter Feeder: Edilson Crisostomo MDTricyclic antidepressants Screen Ql (U)Negative NormalNEGMercy Windham HospitalComment on above:Result Comment: Drug screen results are to be used for medical purposes only. All positive results are unconfirmed. Testing for employment or legal uses should be sent to a reference laboratory for confirmation.Performed By: #### BEKAH #### [address] [place] [address] Tenter Feeder: Edilson Crisostomo MDInterpretive InfoNOT REPORTEDNormalMercy Isaban HospitalComup health system on above:Performed By: #### BEKAH #### [address] [place] [address] Tenter Feeder: Edilson Crisostomo MDMDMA, UrineNOT REPORTEDNormalNEGMercy Isaban HospitalComment on above:Performed By: #### BEKAH #### [facility] [address] [place] [address] Tenter Feeder: Edilson Crisostomo MDUrinalysison 06-96-5374Wvntvnkad UrineNegative NEGATIVEMercy HealthColor, UAYellowYellowMercy HealthGlucose, UrNegativeNEGATIVE [facility] HealthKetones Ql (U)NegativeNEGATIVEMercy HealthLeukocyte esterase Test strip Ql (U)NegativeNEGATIVEMercy HealthNitrite, UrineNegativeNEGATIVEMercy HealthpH, UA7.0Mercy HealthProtein, UANegativeNEGATIVEMercy HealthSpecific Beals, UA1.020Mercy HealthTurbidity UAClearClearMercy HealthUrinalysis CommentsNOT REPORTEDMercy HealthUrine HgbNegativeNEGATIVEMercy Health Urobilinogen, UrineNormalNormalMercy HealthMercy HealthUrinalysis, Routineon 90-10-5455Dvttphhua, SemiQt,UrNegativeNormalNEGMercy Windham HospitalComment on above:Performed By: #### UA #### [facility] [address] [place], [place] [address] Tenter Feeder: Erna Lyn, UrineNegativeNormalOhioHealth Arthur [facility] Comment on above:Performed By: #### UA #### [facility] [address] [place] [address] Tenter Feeder: LINDSEY Lynlarity (U)ClearNormalCLEAROhiohealth Marion General Hospital Comment on above:Performed By: #### UA #### [facility] [address] [place] [address] Tenter Feeder: LINDSEY Lynolor (U)YellowNormalYMercer County Community Hospital Comment on above:Performed By: #### UA #### [facility] [address] [place] [address] Tenter Feeder: Mere Lyn Ql (U)NegativeNormalNEGOhiohealth Marion General HospitalComment on above:Performed By: #### UA #### [facility] [address] [place] [address] [place] [address] Tenter Feeder: Jose Armando Lyn Ql (U)NegativeNormalNEGMercy Windham HospitalComment on above:Performed By: #### UA #### [facility] [address] [place] [address] Dr[address] [place], [place] [address] Tenter Feeder: Edilson Crisostomo MDLeukocyte esterase Test strip Ql (U)NegativeNormal NEGMercy Isaban HospitalComment on above:Performed By: #### UA #### [address] [place], [facility]83 Tenter Feeder: Effie Lyntrite,UrNegativeNormalNEGOhiohealth Marion General Hospital Comment on above:Performed By: #### UA #### [address] [place], [place] [address] Tenter Feeder: HUMBERTO Lyn,Ur7.6Bigyob1.0-9.0Mercy [facility]ham HospitalComment on above:Performed By: #### UA #### [address] [place] [address] Tenter Feeder: HUMBERTO Lynrotein Ql (U)NegativeNormalNEGMerOhioHealth Southeastern Medical Center HospitalComment on above:Performed By: #### UA #### [facility] [address] [place] [address] Dr[place], [facility]83 Tenter Feeder: JESÚS Lynpec. Beals,Ur1.259Emjdhb9.010-1.020[facility] Columbuscy Windham HospitalComment on above:Performed By: #### UA #### [address] [place] [address] Tenter Feeder: Edilson Crisostomo MDUrobilinogen,UrNormalNormalNORMMercy Isaban HospitalComment on above:Performed By: #### UA #### [facility] [address] [place] [address] Tenter Feeder: Daisy LynmentNOT [facility] Comment on above:Performed By: #### UA #### [facility] [address] [place], [place] [address] Tenter Feeder: Edilson Crisostomo [facility] auto differentialon 07-08-1670Yyyundyb Eos # 0.10Merformerly Group Health Cooperative Central HospitalAbsolute Immature Granulocyte0.04Merformerly [facility] Health Cooperative Central HospitalAbsolute Lymph # 1.33Merformerly [facility] Health Cooperative Central HospitalAbsolute [place] #0.77Merformerly [facility]operative Central HospitalBasophils (Bld) [#/Vol]0.03 10*3/uLMerformerly Group Health Cooperative Central HospitalBasophils/100 WBC (Bld)0 %0 - 2 %[facility] Bryan HospitalDifferential TypeNOT REPORTEDParkview Health Bryan HospitalEosinophils/100 WBC (Bld)1 %1 - 4 %[facility] Hematocrit (Bld) [Volume fraction]30.1 %Low36.3 - 47.1 %[facility] Hemoglobin.gastrointestinal spec 1 Ql (Stl)9.0 g/dLLow11.9 - 15.1 g/dLParkview Health Bryan HospitalImmature granulocytes/100 WBC (Bld)0 %0[facility] HospitalInterpretation and review of laboratory resultsAbnormalParkview Health Bryan HospitalLymphocytes/100 WBC (Bld)12 %Low 25 - 45 %[facility] Memorial HospitalH (RBC) [Entitic mass]22.3 pgLow25.0 - 35.0 pgCommunity Memorial HospitalHC (RBC) [Mass/Vol]29.9 g/dL28.4 - 34.8 g/dLCommunity Memorial HospitalV (RBC) [Entitic vol]74.7 fLLow78.0 - 102.0 fLParkview Health Bryan HospitalMonocytes/100 WBC (Bld)7 %2 - 8 %[facility] HospitalNRBC Automated0.00.0 per 100 WBCParkview Health Bryan HospitalPlatelet distribution width (Bld) [Ratio]17.0 %High11.8 - 14.4 %[facility] Bryan HospitalPlatelet EstimateNOT REPORTEDParkview Health Bryan HospitalPlatelet mean volume (Bld) [Entitic vol]10.0 fL8.1 - 13.5 fL [facility] Bryan HospitalPlatelets (Bld) [#/Vol]261 10*3/[facility] HospitalRBC (Bld) [#/Vol]4.03 10*6/uL3.95 - 5.11 m/[facility] HospitalRBC (Bld) [#/Vol]NOT REPORTEDPark[facility] Health [facility] Hospital Segmented neutrophils/100 WBC (Bld)80 %High34 - 64 %[facility] HospitalSegs Absolute 8.60HighParkview Health Bryan HospitalWBC (Bld) [#/Vol]10.9 10*3/uLParkview Health Bryan HospitalWBC (Bld) [#/Vol] NOT REPORTEDPsychiatric hospital, demolished 2001CB with Diffon [id number]. Basophil0.03 k/uLNormal0.00-0.20[facility] HospitalComment on above:Performed By: #### CDP #### [address] [place] [id number] [employer]eder: Arminda Lyn.Imm.Granulocyte0.04 k/uLNormal0.00-0.30[facility] HospitalComment on above:Performed By: #### CDP #### [address] [place] [address] Tenter Feeder: Arminda Lyn.Neutrophil (Seg)8.60 k/uLHigh1.80-8.00[facility] HospitalComment on above:Performed By: #### CDP #### [address] [place] [address] Tenter Feeder: Edilson Crisostomo MDBasophils/100 WBC (Bld)0 %Normal0-2[facility] HospitalComment on above:Performed By: #### CDP #### [address] [place] [address] Tenter Feeder: Edilson Crisostomo MDEosinophils (Bld) [#/Vol]0.10 10*3/uLNormal 0.00-0.44[facility] HospitalComment on above:Performed By: #### CDP #### [address] [place], [facility]83 Tenter Feeder: Edilson Crisostomo MDEosinophils/100 WBC (Bld)1 %Normal1-4[facility] HospitalComment on above:Performed By: #### CDP #### [address] [place], [place] [address] Tenter Feeder: Edilson Crisostomo MDErythrocyte distribution width (RBC) [Ratio]17.0 % High11.8-14.4[facility] HospitalComment on above:Performed By: #### CDP #### [address] [place], [facility]83 Tenter Feeder: Edilson Crisostomo MDHematocrit (Bld) [Volume fraction]30.1 %Low 36.3-47.1[facility] HospitalComment on above:Performed By: #### CDP #### [address] [place], [place] [address] Tenter Feeder: Edilson Crisostomo MDHemoglobin (Bld) [Mass/Vol]9.0 g/dLLow11.9-15.1 [facility] HospitalComment on above:Performed By: #### CDP #### [address] [place], [place] [address] Tenter Feeder: Edilson Crisostomo MDImmature granulocytes/100 WBC (Bld)0 %Puriii7Ptxuq [facility] HospitalComment on above:Performed By: #### CDP #### [address] [place], [facility]83 Tenter Feeder: Edilson Crisostomo MDLymphocytes (Bld) [#/Vol]1.33 10*3/uLNormal 1.20-5.20[facility] HospitalComment on above:Performed By: #### CDP #### [address] [place] [address] Tenter Feeder: Edilson Crisostomo MDLymphocytes/100 WBC (Bld)12 %Pdn21-66Mtpqv [facility] HospitalComment on above:Performed By: #### CDP #### [address] [place] [address] Tenter Feeder: TRAVIS LynCH (RBC) [Entitic mass]22.3 pgLow25.0-35.0[facility] HospitalComment on above:Performed By: #### CDP #### [address] [place], [place] [address]83 Tenter Feeder: TRAVIS LynCHC (RBC) [Mass/Vol]29.9 g/dRMxfvll69.4-34.8[facility] HospitalComment on above:Performed By: #### CDP #### [address] [place], [facility]83 Tenter Feeder: TRAVIS LynCV (RBC) [Entitic vol]74.7 fLLow78.0-102.0[facility] HospitalComment on above:Performed By: #### CDP #### [address] [place], [place] [address] Tenter Feeder: TRAVIS Lynonocytes (Bld) [#/Vol]0.77 10*3/uLNormal0.10-1.40 [facility] HospitalComment on above:Performed By: #### CDP #### [address] [place], [place] 4[address]183 Tenter Feeder: TRAVIS Lynonocytes/100 WBC (Bld)7 %Normal2-8[facility] HospitalComment on above:Performed By: #### CDP #### [address] [place], [place] [address] Tenter Feeder: Madie Lynutrophil (Seg)80 %Qarz35-42YaerqOhiohealth Marion General Hospital Comment on above:Performed By: #### CDP #### [facility] [address] [place] [address] [place] [address] Tenter Feeder: YVON Lyn Automated0.0 per 100 WBCNormal0.0[facility] HospitalComment on above:Performed By: #### CDP #### [address] [place] [address] Tenter Feeder: Pritesh Lyn mean volume (Bld) [Entitic vol]10.0 fL Normal8.1-13.5[facility] HospitalComment on above:Performed By: #### CDP #### [address] [place] [address] Tenter Feeder: Andrew Lyn (Bld) [#/Vol]261 10*3/eTKdpkrj723-469 [facility] HospitalComment on above:Performed By: #### CDP #### [address] [place] [address] Tenter Feeder: DRE Lyn (Bld) [#/Vol]4.03 10*6/uLNormal3.95-5.11[facility] HospitalComment on above:Performed By: #### CDP #### [address] [place] [address] Tenter Feeder: MIN Lyn (Bld) [#/Vol]10.9 10*3/uLNormal4.5-13.5[facility] HospitalComment on above:Performed By: #### CDP #### [address] [place] [address] Tenter Feeder: Tito Lyn Diff PerformedNOT REPORTEDNormalOhiohealth Marion General HospitalComment on above:Performed By: #### CDP #### [facility] [address] [place], [place] 18[address] Tenter Feeder: Pritesh Lyn CommentNOT REPORTEDNormalK[facility]tering [facility] Hospital HospitalComment on above:Performed By: #### CDP #### [facility] [address] [place] [address] [place] [address] Tenter Feeder: DRE Lyn morphology finding Nom (Bld)NOT REPORTEDNormal [facility] HospitalComment on above:Performed By: #### CDP #### [address] [place], [place] 0067683 Tenter Feeder: MIN Lyn MorphologyNOT REPORTEDNormalK[facility]tering [facility] Hospital HospitalComment on above:Performed By: #### CDP #### [address] [place], [place] [address]83 Tenter Feeder: JEREMIAH Lyn, External Resulton [id number], External ResultNegativeCleveland Clinic Med[facility] Health Work Phone: [facility] Work Phone: Q - STREPTOCOCCUS,GROUP B CULTUREon 03-03-2021 STREPTOCOCCUS, GROUP B CULTURESEE NOTENormalNorthern California Linen Supervisor Comment on above:Order Comment: [facility] Testing performed at: QPT, [employer] [facility], [address] [place] [address], [address] [place] [address], [id number], Skill Training Program Coordinator: Nathan Briggs MD [facility] Collection Date/Time: [facility] Results Received Date/Time: [facility] Reported Date/Time: [id number] Comment: STREPTOCOCCUS, GROUP B CULTURE Micro Number: [id number] Test Status: Final Specimen Source: Vaginal/rectal Specimen Quality: Adequate Result: No group B Streptococcus isolated Note per CDC guidelines optimal recovery is achieved by swabbing both the lower vagina and rectum (through the anal sphincter).Performed By: #### [id number] #### [facility] Default [address] [place], [place] [address]XQC, External Resulton [id number], External ResultO+[facility] Work Phone: HIV, External Resulton 28-26-1746PKL, External Result Non-ReactiveMercy Health Work Phone: Hepatitis B, External Resulton 86-85-4264Xiu B, External ResultNegativeMercy Health Work Phone: Hepatitis C Antibody, External Resulton 09-05-2020 Hepatitis C Antibody, External ResultNon-ReactiveMercy Health Work Phone: No Panel Informationon 51-55-9881[facility] Work Phone: RPR, External Labon 78-64-6064KYK, External Result NegativeMercy Health Work Phone: Rh Factor, External Resulton 62-48-1360Rx Factor, External ResultPositiveMercy Health Work Phone: Rubella Titer, External Resulton 21-06-8882Vcvbsee Titer, External Result1.2 (Immune)[facility] Work Phone: C. Trachomatis, External Resulton 1C. Trachomatis, External ResultNegativeMercy Health Work Phone: N. Gonorrhoeae, External Resulton 08-10-2020N. Gonorrhoeae, External ResultNegativeMercy Health Work Phone: No Panel Informationon 33-03-1087[facility] Work Phone: CHLAMYDIA/GONOCOCCUS JANNET (SWAB/URINE/PAPon 02-06-2020 Chlamydia trachomatis, NAANegativeNormalNegativeToledo HospitalComment on above:Performed By: #### CT/NGNA #### [facility] [address] [place] [address] Naigaurav Wayisseria gonorrhoeae, NAANegativeNormalNegativeToledo HospitalComment on above:Performed By: #### CT/NGNA #### [facility] [address] [address] Nai Lama Vital Signs Date TimeVital SignValuePerforming DfjurcbxsGqvmipzz49-02-7746 14:26-0400Body tolxcj492.5 cmPepe Saha MD Work Phone: [phone] [place], [place] 7282110-29-2025 14:26-0400Body mass index (BMI) [Ratio]21.14 kg/a4XaykanygPepe Saha MD Work Phone: [phone] [place], [place] 7282110-29-2025 14:26-0400Body mclcvy11.44 kgPepe Saha MD Work Phone: [phone] [place], [place] 7282110-29-2025 14:26-0400Diastolic blood bhuxbzvo47 mm[Hg]Pepe Saha MD Work Phone: [phone] [place], [place] 7282110-29-2025 14:26-0400Heart rate 92 /minPepe Saha MD Work Phone: [phone] [place], [place] 7282110-29-2025 14:26-0400Systolic blood ddkvxyxx092 mm[Hg]Pepe Saha MD Work Phone: [phone] [place], [place] 7282110-20-2025 15:20-0400Body mass index (BMI) [Ratio]19.9 kg/m2Jeannette RICHARDSON Work Phone: [facility] HospitalLuzeaxgrnx36-85-6837 15:20-0400Body qmncme98.35 kgJeannette RICHARDSON Work Phone: [facility] HospitalFyirmarpwu59-93-2043 15:20-0400Diastolic blood bapftfxb24 mm[Hg]Jeannette RICHARDSON Work Phone: [facility] HospitalPmjkjaehru02-58-8240 15:20-0400Systolic blood nconldah270 mm[Hg]Jeannette RICHARDSON Work Phone: [facility] HospitalKeubyqiwug64-57-8456 13:47-0400Body mass index (BMI) [Ratio]19.64 kg/s2OcknaRonny Roa DO Work Phone: [facility] HospitalTvzmjhuzqo20-47-0844 13:47-0400Body .72 kgCorey Janina DO Work Phone: [facility] HospitalNddxvjfzsl10-95-8486 13:47-0400Diastolic blood rteudhny52 mm[Hg]Ronny Janina DO Work Phone: [facility] HospitalBwgjkykziz03-72-2582 13:47-0400Systolic blood apsnibhz05 mm[Hg]Ronny Janina DO Work Phone: [facility] HospitalStzsisoqnq68-15-6438 17:22-0400Body mass index (BMI) [Ratio]18.66 kg/b3KolorqiAsher oJelo CNM Work Phone: [facility] HospitalYrbawmqmdi84-49-0486 17:22-0400Body wfhhqy05.27 kgAsher Joelo CNM Work Phone: [facility] HospitalRurosandfo63-86-1193 17:04-0400Body bmuqvi774.5 cmValetim Buck CNM Work Phone: [facility] HospitalGeuudacntu91-55-7187 17:03-0400Body mass index (BMI) [Ratio]18.66 kg/k4BlzvcstAsher Joelo CNM Work Phone: [facility] HospitalBsbxdnveez25-05-2788 17:03-0400Body .27 kgAsher Joelo CNM Work Phone: [facility] HospitalBcihaezsyb76-09-3386 17:03-0400Diastolic blood hnmyphyi67 mm[Hg]Asher Marycruzo CNM Work Phone: [facility] HospitalNxhczruija56-42-9102 17:03-0400Systolic blood ppqvvrqu315 mm[Hg]Asher Joelo CNM Work Phone: [facility] HospitalKqdywgpspc94-62-8531 11:29-0500Body temperature 97.2 [degF]Connie Monaeelling CASHIER CLERK - CNM Work Phone: [facility] HospitalGekcvj13-46-2591 11:29-0500Diastolic blood znbarzmj92 mm[Hg]Connie Hotcoretta CASHIER CLERK - CNM Work Phone: [facility] HospitalXxstam57-81-0758 11:29-0500Heart rate84 /min Connie Lizarraga APRN Dangelo CNArcadio Work Phone: [facility] HospitalZbbnnu28-46-9553 11:29-0500Respiratory rate18 /minSlorna Lizarraga CASHIER CLERK - CNM Work Phone: [facility] HospitalJtupwj42-59-4860 11:29-0500Systolic blood bwzuznzs77 mm[Hg]Connie Lizarraga APRN - CNM Work Phone: [facility] Health Encounters Encounter DateEncounter TypeCare ProviderFacilityStart: 01-05-2025 End: 15-11-4803alrehvdymfETFFU Memorial Health Systemtart: 12-23-2024 End: 62-80-8171Ajmixu consultation new/estab patient 62 Cara Urrutia MD Work Phone: [phone]-Rzmwt [facility] Comment on above:21 weeks gestation of (Primary Dx); Monochorionic diamniotic twin , unspecified trimesterStart: 12-23-2024 End: 08-95-4588okgoejczkrVBEST Marymount Hospitaltart: 12-22-2024 End: 73-25-3162Crglrcuiq department patient visitCOMMUNITY HEALTH SERVICES [facility] Hospitaltart: 12-15-2024 End: 95-36-0073lpjdlrrznqVKYSC Memorial Health Systemtart: 12-14-2024 End: 08-44-2810hxfwkbxxqhKJU Jasmyne AvailableStart: 12-14-2024 End: 05-74-2715Fedtyxt encounter procedureJeannette RICHARDSON Work Phone: NONM HealthcareStart: 12-14-2024 End: 53-22-0512Udsrogkh preventive med est patient 18-39 yrsJeannette RICHARDSON Work Phone: [facility] [place] OBGYNComment on above:20 weeks gestation of (HHS-HCC); Second trimester (HHS-HCC); Monochorionic diamniotic twin , antepartum ([facility]); Well woman exam with routine gynecological exam; Exposure to STD; Vaginal discharge; , unspecified gestational age ([facility]); Encounter for supervision of normal first in first trimester ([facility]) Start: 12-14-2024 End: 69-11-8118Bpqaql Monika RICHARDSON Work Phone: [facility] [place] OBGYNStart: 12-14-2024 End: 16-96-3414Emrkpb Monika RICHARDSON Work Phone: noMS [place] OBGYNStart: 12-14-2024 End: 82-81-0821Ttcnrjiba Result EncounterGeneric External Data ProviderNOMS External Department UnsolicitedStart: 11-27-2024 End: 78-89-8137Pmyknzmol encounterLorrine FoxMaternal- Medicine at The [facility] HospitalComment on above:Monochorionic diamniotic twin gestation in second trimester (Primary Dx)Start: 11-25-2024 End: 32-09-4262uacvsiygkrVBVOK R [facility] HospitalStart: 11-23-2024 End: 24-26-8594Buljo abstractingScanning Provider ExternalMaternal- Medicine at [facility] Medical Centertart: 11-20-2024 End: 62-72-1274VprdeeMyrna Mercado RNMaternal- Medicine at [facility] HospitalComment on above:Monochorionic diamniotic twin gestation in second trimester (Primary Dx)Start: 11-18-2024 End: 61-72-6596Uxbyns flowsheetCorey Janina DO Work Phone: [facility] [place] OBGYNStart: 11-18-2024 End: 34-82-7471Bbmpdv flowsheetCorey Janina DO Work Phone: [facility] [place] OBGYNStart: 11-18-2024 End: 87-60-4019metolmylulVDSSE FAZIONot AvailableStart: 11-18-2024 End: 42-74-5129Jbvszwns flow sheetCorey Janina DO Work Phone: noms [place] OBGYNComment on above: examination or test, positive result ([facility]); Monochorionic diamniotic twin , antepartum ([facility])Start: 10-19-2024 End: 94-07-9337macgzcnuzyFVKTUHN L FLORONot AvailableStart: 10-19-2024 End: 11-48-9653Ubgsjnqzqk care visitValerie Tu Joelo CNM Work Phone: NODJ [place] OBGYNComment on above: examination or test, positive result ([facility]) (Primary Dx); Monochorionic diamniotic twin gestation in first trimester ([facility])Start: 10-19-2024 End: 96-20-3849Uvezfz flowsheetValerie L Floro CNM Work Phone: NOVD [place] OBGYNStart: 10-19-2024 End: 23-49-1790Krlbic flowsheetValerie L Floro CNM Work Phone: noms [place] OBGYNStart: 10-13-2024 End: 96-22-3268Osvnnftgn Result EncounterValerie Tu Joelo CNM Work Phone: noms External Department UnsolicitedStart: 10-13-2024 End: 15-21-1121Cqwumugts Result EncounterValerie L Marycruzo CNM Work Phone: noms External Department UnsolicitedStart: 10-07-2024 End: 80-25-7190Uzanphzlx department patient visitCOMMUNITY HEALTH SERVICES [facility] [place] HospitalStart: 09-28-2024 End: 95-78-0645Zhbttgn care visitValerie L Marycruzo CNM Work Phone: noms [place] OBGYNComment on above:GA: 6i5sPnjat: 09-28-2024 End: 60-78-7382nhtrmyjodxCFJAJHN L FLORONot AvailableStart: 04-17-2024 End: 07-22-7317Wedckdkho department patient visitCOMMUNSHELBY MEMORIAL [facility] SERVICES [facility] HospitalStart: 03-31-2024 End: 43-77-0101Trsaclnyp Result EncounterAsher Buck CNM Work Phone: noms External Department UnsolicitedStart: 03-31-2024 End: 05-53-9884Irodnifph Result EncounterValetim Buck CNM Work Phone: noms External Department UnsolicitedStart: 03-17-2024 End: 57-83-9599Fmsqjftro department patient visitCOMMUNWELLSPAN WAYN[facility] SERVICES [facility] HospitalStart: 01-16-2024 End: 82-84-9024Dbzttgiuh encounterAsher BOLANOSM Work Phone: noms FNR FMStart: 03-18-2021 End: 50-76-2821Fqabzkolyq and management of inpatientCLAUDTOYIN [facility] HospitalStart: 03-18-2021 End: 77-86-2374Mlyureoqdn and management of inpatientSusatita Lizarraga CASHIER CLERK - CNM Work Phone: mthz Labor and DeliveryStart: 02-04-2020 End: 08-45-5274Hosszui encounter procedureANDREA MOOREFacility:H1 Procedures DateProcedureProcedure DetailPerforming ClinicianStart: 36-91-4399Vszvp dip stick/tablet rgnt non-auto w/o micrscpAmy Rudi RICHARDSON Work Phone: Start: 67-17-2683PQV DRUG SCREEN RAPID (URINE)Generic External Data ProviderStart: 28-39-4958JMV TESTValetim BOLANOSM Work Phone: Start: 43-46-9207Yjcoljnx screenScanning External Start: 84-25-9254Qtyhuciccz glycosylated v8fIunaosei Provider ExternalStart: 73-96-0268Dlapogbjl c antibodyNot In System Ref ProvStart: 46-42-7283YTQ 1&2 AB/AG SCREEN (P24 AG)Not In System Ref ProvStart: 08-24-2707Wgyp ia hepatitis b surface antigenNot In System Ref ProvStart: 23-73-6845GZRK AND SCREENNot In System Ref ProvStart: 96-49-7025NG OB TRANSVAGINALValerie L Floro CNM Work Phone: Start: 08-13-7254Jwoz screen class list aSusan P Hotelling CASHIER CLERK - CNM Work Phone: Start: 76-77-0658Ojoai dip stick/tablet rgnt auto w/o microscopySusan P Hotelling CASHIER CLERK - CNM Work Phone: Start: 49-09-0716Qftki count complete auto&auto difrntl wbcSusan P Hotelling CASHIER CLERK - CNM Work Phone: Start: 63-45-3053ESO, EXTERNAL RESULTValerie Floro CASHIER CLERK - CNM Work Phone: Start: 45-07-4618IAS, EXTERNAL RESULTValerie Floro CASHIER CLERK - CNM Work Phone: Start: 65-24-8941Uuvyxdns screenSusan Hotelling CASHIER CLERK - CNM Work Phone: Start: 49-04-3856DDYRBSVCU B, EXTERNAL RESULTValerie Floro CASHIER CLERK - CNM Work Phone: Start: 02-88-1924EUSRPFNXV C ANTIBODY, EXTERNAL RESULT Asher Floro CASHIER CLERK - CNM Work Phone: Start: 86-95-1924LHR, EXTERNAL RESULTValerie Floro CASHIER CLERK - CNM Work Phone: Start: 23-69-8820Rdgwbgonu panelHistorical Provider Start: 25-50-2578RH FACTOR, EXTERNAL RESULTValerie Floro CASHIER CLERK - CNM Work Phone: Start: 77-78-4382DJB, EXTERNAL RESULTValerie Floro CASHIER CLERK - CNM Work Phone: Start: 11-49-3352UBOTIJL TITER, EXTERNAL RESULTValerie Marycruzo CASHIER CLERK - CNM Work Phone: Start: 08-10-2020. TRACHOMATIS, EXTERNAL RESULT Asher Marycruzo CASHIER CLERK - CNM Work Phone: Start: 08-10-2020N. GONORRHOEAE, EXTERNAL RESULT Asher Marycruzo CASHIER CLERK - CNM Work Phone: Plan of Treatment DateCare ActivityDetailAuthorStart: 19-07-8558Lbnfg BMI ScreeningAdult BMI ScreeningCincinnati VA Medical Center SystemStart: 96-37-8880Kiqbvkr ScreeningTobacco ScreeningReplaced by [facility] Ansontart: 11-27-2025 End: 52-65-0776GI MFM with or without consultUS MFM with or without consult Imaging Routine Monochorionic diamniotic twin gestation in second trimester Expected: 11/27/2025 (Approximate), Expires: 11/27/2025[facility] Work Phone: comment on above:Expected: 11/27/2025 (Approximate), Expires: 11/27/2025Start: 99-17-4734Elaqv BMI ScreeningAdult BMI Screening Replaced by [facility] Ansontart: 24-93-2418Sehavio ScreeningTobacco Screening Replaced by [facility] Ansontart: 01-28-2025 End: 62-21-4110Vhizdqgdfjpo consultation with tdnxyen0401/28/2025 2:00 PM EST Telemedicine M[facility]- Medicine at [facility] [address] [place] [address] Pepe Saha MD [address], [address] [place] [address] [facility] Centertart: 01-20-2025 End: 03-37-8445Zasvsnm encounter ymlhhderb40/26/2025 1:00 PM EST Appointment [facility] - [facility] US Imaging [address] [place] [address] [phone] VA [facility] US ImagingStart: 01-14-2025 End: 49-20-3359Qhodhmw encounter djrncapnu20/20/2025 11:10 AM EST [facility]ine [facility] [address] [address] Ronny Roa DO [address] [place] [address] [facility] [place] [facility]BGYNStart: 01-05-2025 End: 73-56-2077Zdrtejd encounter mbnaiiirr71/11/2025 3:15 PM EST Appointment [facility] - Ultrasound [address] [place] [address] [facility] - UltrasoundStart: 12-23-2024 End: 01-69-6254Euhwluo encounter procedureProSumma Health [facility] US ImagingStart: 12-20-2024 End: 41-21-2147GO MFM with or without consultUS MFM with or without consult Imaging Routine Monochorionic diamniotic twin gestation in second trimester Expected: 12/20/2024 (Approximate), Expires: 11/20/2025[facility] Work Phone: comment on above:Expected: 12/20/2024 (Approximate), Expires: 11/20/2025Start: 12-14-2024 End: 25-12-0958Qdvop fetoprotein, maternalAlpha fetoprotein, maternal Lab Routine 20 weeks gestation of (HHS-HCC) Second trimester (HHS-HCC) Monochorionic diamniotic twin , antepartum (HHS-HCC) Expected: 12/14/2024 (Approximate), Expires: 01/14/2025[facility] Work Phone: comment on above:Expected: 12/14/2024 (Approximate), Expires: 01/14/2025Start: 12-14-2024 End: 12-46-0318Egmku of abuse panel - Urine by Screen methodRapid drug screen, urine Lab Routine , unspecified gestational age ([facility]) Encounter for supervision of normal first in first trimester ([facility]) Expected: 12/14/2024 (Approximate), Expires: 12/14/2025NONM HealthcareComment on above: Expected: 12/14/2024 (Approximate), Expires: 12/14/2025Start: 12-09-2024 End: 06-61-8066Mzxemzy encounter qgkijpjgu59/15/2025 10:30 AM EDT Routine [facility] [place] [facility] [address] [place] [phone] Jeannette Cameron PA [address] [place] [address] [facility] OBGYNStart: 12-08-2024 End: 81-69-5916Wxjllxv encounter jkfghfxcy63/14/2025 9:15 AM EDT Appointment [facility] - Ultrasound [address] [place] [address] LxhYsqqgzSelect Medical [facility] - UltrasoundStart: 11-25-2024 End: 09-59-1150Qshmplz encounter pjwbaurqq72/01/2025 1:00 PM EDT Appointment [facility] US Imaging [address] [place] [address] HzuYntgwnAdams County [facility] US ImagingStart: 11-18-2024 End: 02-13-1505Lxvngpe encounter fidczmzzu29/24/2025 1:40 PM EDT Routine [facility] [address] [place], [id number] Ronny Roa DO [address] [place] [address] [facility]By[facility] [place] OBGYNStart: 10-26-2024 Influenza vaccinationSHRINERS HOSPITALS FOR CHILDREN HealthcareStart: 10-19-2024 End: 54-29-2155Ynakply encounter yklqkdkym87/25/2025 5:15 PM EDT Routine [facility] Campbell [facility]AKRISHNA [address] [place] [phone] Asher Buck CNM [address] [place] [facility] [place] [place] [address] [facility] OBGYNStart: 09-28-2024 End: 45-97-3103LIP/RhABO/Rh Lab Routine examination or test, positive result ([facility]) Expected: 09/28/2024 (Approximate), Expires: 09/28/2025NONM HealthcareComment on above:Expected: 09/28/2024 (Approximate), Expires: 09/28/2025Start: 09-28-2024 End: 42-32-3204Yrjxhcrm screenAntibody screen Lab Routine examination or test, positive result ([facility]) Expected: 09/28/2024 (Approximate), Expires: 09/28/2025NONM HealthcareComment on above:Expected: 09/28/2024 (Approximate), Expires: 09/28/2025Start: 09-28-2024 End: 95-65-3996Mupodcho identified in Urine by CultureUrine culture Microbiology Routine examination or test, positive result ([facility]) Expected: 09/28/2024 (Approximate), Expires: 09/28/2025NONM HealthcareComment on above: Expected: 09/28/2024 (Approximate), Expires: 09/28/2025Start: 09-28-2024 End: 71-59-2320UKE panel - Blood by Automated countCBC Lab Routine examination or test, positive result ([facility]) Expected: 09/28/2024 (Appro ximate), Expires: 09/28/2025NONM HealthcareComment on above:Expected: 09/28/2024 (Approximate), Expires: 09/28/2025Start: 09-28-2024 End: 35-71-6347GFHJ TOX MONITORIGN 6 W/ CONF,URINEDRUG TOX MONITORIGN 6 W/ CONF,URINE Lab Routine examination or test, positive result ([facility]) Expected: 09/28/2024 (Approximate), Expires: 09/28/2025[facility] HealthcareComment on above:Expected: 09/28/2024 (Approximate), Expires: 09/28/2025Start: 09-28-2024 End: 04-89-0090Beswtpiifd A1c/Hemoglobin.total in BloodHemoglobin A1c Lab Routine examination or test, positive result ([facility]) Expected: 09/28/2024 (Approximate), Expires: 09/28/2025[facility] HealthcareComment on above: Expected: 09/28/2024 (Approximate), Expires: 09/28/2025Start: 09-28-2024 End: 62-77-7111Wgsgeczqb B virus surface Ag [Presence] in Serum or Plasma by ImmunoassayHepatitis B surface antigen Lab Routine examination or test, positive result ([facility]) Expected: 09/28/2024 (Approximate), Expires: 09/28/2025[facility] Work Phone: Comment on above:Expected: 09/28/2024 (Approximate), Expires: 09/28/2025Start: 09-28-2024 End: 50-25-3160Aabkrsluj C virus Ab [Presence] in Serum or Plasma by Immunoassay Hepatitis C antibody Lab Routine examination or test, positive result ([facility]) Expected:09/28/2024 (Approximate), Expires: 09/28/2025[facility] Comment on above:Expected: 09/28/2024 (Approximate), Expires: 09/28/2025Start: 09-28-2024 End: 43-85-1912XCX-1/HIV-2 antigen/antibody combination immunoassayHIV-1 and HIV-2 antibodies Lab Routine examination or test, positive result ([facility]) Expected: 09/28/2024 (Approximate), Expires: 09/28/2025[facility] Comment on above:Expected: 09/28/2024 (Approximate), Expires: 09/28/2025Start: 09-28-2024 End: 18-23-8651Hhmqmipdv gonorrhoeae DNA [Presence] in Cervical mucus by JANNET with probe detectionC. trachomatis / N. gonorrhoeae, DNA probe Pathology and Cytology Routine examination or test, positive result ([facility]) Expected: 09/28/2024 (Approximate), Expires: 09/28/2025[facility] HealthcareComment on above:Expected: 09/28/2024 (Approximate), Expires: 09/28/2025Start: 09-28-2024 End: 95-61-6609Gokdjf Ab [Presence] in Serum by RPRRPR Lab Routine examination or test, positive result ([facility]) Expected: 09/28/2024 (Appro ximate), Expires: 09/28/2025[facility] HealthcareComment on above:Expected: 09/28/2024 (Approximate), Expires: 09/28/2025Start: 09-28-2024 End: 78-54-7786Fokgzct antibody, IgGRubella antibody, IgG Lab Routine examination or test, positive result ([facility]) Expected: 09/28/2024 (Approximate), Expires: 09/28/2025[facility] HealthcareComment on above:Expected: 09/28/2024 (Approximate), Expires: 09/28/2025Start: 09-28-2024 End: 96-18-7132NIJ W/REFLEX TO FT4TSH W/REFLEX TO FT4 Lab Routine examination or test, positive result ([facility]) Expected: 09/28/2024 (Approximate), Expires: 09/28/2025[facility] HealthcareComment on above:Expected: 09/28/2024 (Approximate), Expires: 09/28/2025Start: 09-28-2024 End: 46-84-6854CWBLIYSIGQ MICROSCOPICURINALYSIS MICROSCOPIC Lab Routine examination or test, positive result ([facility]) Expected: 09/28/2024 (Approximate), Expires: 09/28/2025[facility] HealthcareComment on above:Expected: 09/28/2024 (Approximate), Expires: 09/28/2025Start: 46-18-4919YUtO,Tdap and Td Vaccines (7 - Td or Tdap)DTaP,Tdap and Td Vaccines (7 - Td or Tdap)Replaced by [facility] Ansontart: 04-03-2024 End: 12-35-7925idxpymnroy57/07/2025 10:30 AM EST Initial [facility] [address] [place] [address] [facility] OBStart: 05-05-5843Ebkpivaov vaccinationInfluenza Vaccine (#1)[facility]Start: 55-62-3347Rtehrrgqm for malignant neoplasm of cervixPap SmearProMedica Riverview Health Institute SystemStart: 03-08-0525Rzmyyhzrk for Chlamydia trachomatisChlamydia Screening Replaced by [facility]ontart: 43-56-0811Ebvawcrst vaccinationFlu vaccine (#1) [facility]Start: 45-55-4401Nvwzluhperlba (ACWY) vaccine (1 - 2-dose series) Meningococcal (ACWY) vaccine (1 - 2-dose series)[facility] HospitalStart: 2018 Screening for Chlamydia trachomatisChlamydia screenParkview Health Bryan HospitalStart: 2017 HIV screeningHIV screenParkview Health Bryan HospitalStart: 06-64-8988Bmiwjxyjsk ScreenDepression ScreenParkview Health Bryan HospitalStart: 05-77-6197Kfdgokzbxc ScreeningDepression Screening Replaced by [facility]ontart: 12-75-1215XJU vaccine (1 - 2-dose series)HPV vaccine (1 - 2-dose series)[facility] HospitalStart: 12-52-5616RVkW/Tdap/Td vaccine (1 - Tdap)DTaP/Tdap/Td vaccine (1 - Tdap)[facility] HospitalStart: 23-50-1053QTERL-19 Vaccine (1)COVID-19 Vaccine (1)[facility] HospitalStart: 03-09-4956Jlzfzeaam A vaccine (1 of 2 - 2-dose series)Hepatitis A vaccine (1 of 2 - 2-dose series)[facility] Start: 62-84-1476Xtqlbme,Mumps,Rubella (MMR) vaccine (1 of 2 - Standard series) Measles,Mumps,Rubella (MMR) vaccine (1 of 2 - Standard series)[facility]: 77-27-9001Sbnsnbkpq vaccine (1 of 2 - 2-dose childhood series)Varicella vaccine (1 of 2 - 2-dose childhood series)[facility]: 07-39-0373Neogfyrwh B vaccine (1 of 3 - 3-dose primary series)Hepatitis B vaccine (1 of 3 - 3-dose primary series)[facility]: 07-62-9376Fwketubvo C screeningHepatitis C screenCommunity Regional Medical CenterAMYDIA TRACHOMATIS (GENITO/STI)CHLAMYDIA TRACHOMATIS (GENITO/STI) Lab Routine Exposure to STD Ordered: 12/14/2024[facility] Healthcare Comment on above:Ordered: 12/14/2024ytology Cervical or vaginal smear or scraping studyPap Smear Pathology and Cytology Routine Well woman exam with routine gynecological exam Ordered: 12/14/2024[facility] HealthcareComment on above: Ordered: 12/14/2024Neisseria gonorrhoeae DNA [Presence] in Unspecified specimen by JANNET with probe detectionNeisseria gonorrhea DNA probe, direct Lab Routine Exposure to STD Ordered: 12/14/2024[facility] HealthcareComment on above:Ordered: 12/14/2024SURESWAB(R) ADVANCED VAGINITIS PLUS, TMASURESWAB(R) ADVANCED VAGINITIS PLUS, TMA Pathology and Cytology Routine Vaginal discharge Ordered: 12/14/2024 [facility] HealthcareComment on above:Ordered: 12/14/2024 Immunizations Immunization DateImmunizationNotesCare XzeuihgkBvzlezaf32-97-2250qtqucniwlu, tetanus toxoids and acellular pertussis vaccine, unspecified formulationSusan Greenlotsthe christ hospital CASHIER CLERK - [employer] Work Phone: [facility] Work Phone: [phone], mumps and rubella virus vaccine Connie GreenlotsHampshire Memorial HospitalN - [employer] Work Phone: [facility] Work Phone: [phone]t virus vaccine, unspecified formulationKavitharisergey Buck [employer] Work Phone: [facility] Healthcare Payers DatePayer CategoryPayerPolicy [id number] [id number] Care - OtherFIRSTHEALTH [facility] on file [place]: [address] [place] [id number] [id number] 1.2.840.738023.1.13.239.2.7.3.569085.16761-30-4482 [id number] .1.044275.3.57[id number] .1.444391.3.57[id number] .1.402447.3.57[id number] 2..1.971676.3.57[id number] .1.518201.3.57[id number] 2.16.840.1.616134.3.57[id number] 2.16.840.1.696867.3.57[id number] 2.16.840.1.488985.3.57[id number] 2.16.840.1.652879.3.57[id number] 2.16.840.1.756615.3.57[id number] 2.16.840.1.614599.3.57[id number] 2.840.1.735258.3.57[id number] 2.16.840.1.011075.3.57[id number] 2..840.1.392717.3.57[id number] 2.840.1.225556.3.57[id number] 2.840.1.456499.3.579.[id number] Social History DateTypeDetailFacilityStart: 07-31-2011 End: 10-83-4032Caihsqo smoking status NHISNever smoked tobaccoSelect Medical Specialty Hospital - ColumbusForge MedicalStart: 05-08-1314Srbyikg intakeNot [facility] WaxahachieHelioVolt Phone: start: 29-35-6685Cpt Assigned At BirthNot on [facility] long hospitalOurStory Phone: exposure to SARS-CoV-2 (event)Not sureParkview Health [facility] Hospital Tobacco smoking status NHISTobacco smoking consumption unknownNOMS Healthcare Start: 04-06-2020 End: 15-45-6616Rzkyny identityNot on fileReplaced by [facility] Ansontart: 03-12-2017 End: 25-55-4795Rmgrnrw use and exposureSmokeless tobacco non-userNOMS Healthcare Start: 09-28-2024 End: 92-55-2697Hdpgdreym beverage intakeEx-drinker (finding)[facility] Start: 04-06-2020 End: 41-85-1513Brmsgnt of Social functionReplaced by [facility] Ansontart: 19-78-6550AbojqdkbvDMOF HealthcareStart: 86-68-5249Kqg hard is it for you to pay for the very basics like food, housing, medical care, and heatingNot hard at [facility] Hospitaltart: 16-14-7762IduTmmzow (finding)[facility] Functional Status DateAssessmentResultFaWest [facility] Community Hospital Clinical Notes 03-20-2021 to 12-23-2024 Note Date & JbkuVrrwOmegfocp92-81-6854 History of Present illness Narrative* Carley Johnson RN - 12/23/2024 3:00 PM EDT Headache/epigastric pain/blurry vision/swelling? No Cramping/contractions? No Spotting/vaginal bleeding? No Loss or gush of fluid like your water may have broken? No Do you have cats at home? No Do you change the litter box (reason: risk of toxoplasmosis)? NA Genetic testing done this here or other office? Have you been seen here at [facility] in a previous ? No Recent ER visits or hospitalizations? Was in the ER a few days ago for near syncopal episode. She was dehydrated and anemic Bring blood sugar log or meter with you today? (Please bring them with you for every visit at [facility]) NA Flu vaccine (Dec-April)? NA Any concerns that you would like me to mention to the provider today? No * Pepe Saha MD - 12/23/2024 3:00 PM EDT [facility] Consult Note Reason For Consult: monochorionic-diamniotic twin gestation HPI: Naye Parsons is a 24 y.o. at 21w4d with Estimated Date of Delivery: 05/01/25 Chief Complaint Patient presents with [place]-di twins I have reviewed the pertinent available patient records including but not limited to notes, labs and images She reports that she is doing well. She reports normal movements and she denies leakage of fluid, contractions or vaginal bleeding. She denies fever, chills, nausea, vomiting, shortness of breath, chest pain, headache, blurry vision, right upper quadrant pain or edema. Complications: Monochorionic-Diamniotic Twins Denies family history of: Learning difficulties, congenital anomalies, DVT/VTE, early-onset cancer,early-onset cardiac disease or other inherited conditions Cell free DNA: low risk male x2 (monozygotic) Carrier screen: negative 05/29 Denies smoking, alcohol or other substance use in Denies exposure to cat litter, farming animals, toxic exposure to chemical at work/environment Recent hospitalization: no Review of systems: Review of systems was noncontributory OB Hx: OB History Para Term AB Living 3 1 1 0 1 1 SAB IAB Ectopic Multiple Live Births 0 0 0 0 1 # Outcome Date GA Lbr Kenji/2nd Weight Sex Type Anes PTL Lv 3 Current 2 Term 03/19/21 39w0d 3.544 kg M Vag-Spont None N CRYSTAL 1 AB PREECLAMPSIA SCREEN ([place] Preventive Services Task Force) Patient is at high risk if 1 or more factors present. Incidence of preeclampsia is >= 8%: Prior preeclampsia NO Multiple gestation YES Chronic hypertension NO Type 1 or 2 diabetes NO Renal disease NO Autoimmune disease NO (Lupus, APLS) Patient is at moderate risk is several risk factors are present: Nulliparity NO Obesity (BMI >= 30) NO Family history of preeclampsia NO (Mother, sister) NO Sociodemographic characteristics YES Age >= 35 NO Personal history factor NO (Previous SGA, adverse outcome, > 10 years from last ) PMH: History reviewed. No pertinent past medical history. PSHIST: Past Surgical History: Procedure Laterality Date SKIN GRAFT Allergies: No Known Allergies Meds: Current Outpatient Medications: CEPHALEXIN ORAL, Take by mouth every 8 (eight) hours., Disp: , Rfl: [START ON 12/24/2024] ferrous sulfate 325 (65 FE) MG tablet, Take 1 tablet (325 mg total) by mouth every other day., Disp: 7 tablet, Rfl: 0 ondansetron ODT (ZOFRAN ODT) 4 mg disintegrating tablet, Dissolve 1 tablet (4 mg total) on tongue every 8 (eight) hours as needed for nausea for up to 10 doses., Disp: 10 tablet, Rfl: 0 21-iron fu-folic acid ( COMPLETE) 14 mg iron- 400 mcg tablet, Take 1 tablet by mouth in the morning., Disp: 30 tablet, Rfl: 0 aspirin 81 mg, Take 1 tablet once a day until delivery and then stop, Disp: 90 tablet, Rfl: 1 SH: Social History Socioeconomic History Marital status: Single Spouse name: Not on file Number of children: Not on file Years of education: Not on file Highest education level: Not on file Occupational History Not on file Tobacco Use Smoking status: Never Smokeless tobacco: Never Vaping Use Vaping status: Never Used Substance and Sexual Activity Alcohol use: Not Currently Drug use: Not Currently Sexual activity: Yes Partners: Male control/protection: None Other Topics Concern Not on file Social History Narrative Not on file Social Drivers of Health Financial Resource Strain: Low Risk (09/05/2020) Overall Financial Resource Strain (CARDIA) Difficulty of Paying Living Expenses: Not hard at all Food Insecurity: No Food Insecurity (12/22/2024) Hunger Screening Food Insecurity - Worry: Never True Food Insecurity - Inability: Never True Transportation Needs: Unknown (09/05/2020) PRAPARE - Transportation Lack of Transportation (Medical): No Lack of Transportation (Non-Medical): Not on file Physical Activity: Not on file Stress: Not on file Social Connections: Not on file Interpersonal Safety: Not At Risk (09/05/2020) Humiliation, Afraid, Rape, and Kick questionnaire Fear of Current or Ex-Partner: No Emotionally Abused: No Physically Abused: No Sexually Abused: No Housing Instability: Not on file Physical Exam: Vital Signs Vitals: 12/23/24 1426 BP: 108/67 BP Site: Right Arm BP Postition: Sitting BP CUFF SIZE: S (7-9 inches) Pulse: 92 Weight: 52.4 kg (115 lb 9.6 oz) Height: 157.5 cm (5' 2 ) Physical Exam: Gen: Not in acute distress, alert and oriented. Eyes: Pupils equal and reactive Chest: Nonlabored breathing Cardiac: Pulse was regular on vital signs assessment Abdomen: Gravid Skin/extremities: Appears intact. No visible lesions MS:no visible edema Neuro: No focal deficits Notes/Imaging/Labs reviewed Admission on 12/22/2024, Discharged on 12/22/2024 Component Date Value Ref Range Status WBC 12/22/2024 7.8 4 - 11 x10E9/L Final RBC Count 12/22/2024 3.21 (L) 3.8 - 5.2 X10E12/L Final Hemoglobin 12/22/2024 8.3 (L) 11.7 - 15.5 g/dL Final Hematocrit 12/22/2024 24.9 (L) 35 - 47 % Final MCV 12/22/2024 78 (L) 80 - 100 fL Final MCH 12/22/2024 25.7 (L) 27 - 34 pg Final MCHC 12/22/2024 33.2 32 - 36 g/dL Final RDW 12/22/2024 15.3 (H) 11.5 - 15 % Final Platelet Count 12/22/2024 314 150 - 450 X10E9/L Final MPV 12/22/2024 7.2 7 - 12 fL Final Neutrophils % 12/22/2024 70.5 % Final Lymphocytes % 12/22/2024 19.0 % Final Monocytes % 12/22/2024 8.9 % Final Eosinophils % 12/22/2024 1.2 % Final Basophils % 12/22/2024 0.4 % Final Neutrophils Absolute (A) 12/22/2024 5.5 1.5 - 6.6 10*3/uL Final Lymphocytes Absolute 12/22/2024 1.5 1.0 - 3.5 10*3/uL Final Monocytes Absolute 12/22/2024 0.7 0.0 - 0.9 10*3/uL Final Eosinophils Absolute 12/22/2024 0.1 0.0 - 0.4 10*3/uL Final Basophils Absolute 12/22/2024 0.0 0.0 - 0.2 10*3/uL Final Differential Type 12/22/2024 AUTOMATED DIFFERENTIAL Final SODIUM 12/22/2024 133 (L) 134 - 146 mmol/L Final POTASSIUM 12/22/2024 3.4 (L) 3.5 - 5.0 mmol/L Final CHLORIDE 12/22/2024 102 98 - 109 mmol/L Final CARBON DIOXIDE 12/22/2024 23 22 - 32 mmol/L Final ANION GAP 12/22/2024 8 5 - 15 mmol/L Final BLOOD UREA NITROGEN 12/22/2024 6 5 - 23 mg/dL Final CREATININE 12/22/2024 0.36 (L) 0.40 - 1.00 mg/dL Final METHOD TRACEABLE TO IDMS STANDARD GLUCOSE 12/22/2024 91 65 - 99 mg/dL Final CALCIUM 12/22/2024 8.4 (L) 8.5 - 10.5 mg/dL Final TOTAL PROTEIN 12/22/2024 6.1 6.0 - 8.0 g/dL Final ALBUMIN 12/22/2024 2.7 (L) 3.2 - 5.3 g/dL Final ALKALINE PHOSPHATASE 12/22/2024 73 39 - 130 U/L Final AST 12/22/2024 16 <=41 U/L Final ALT 12/22/2024 6 <=31 U/L Final BILIRUBIN,TOTAL 12/22/2024 0.7 0.3 - 1.2 mg/dL Final EGFR Non-Race Dependent 12/22/2024 >90 >=60 ml/min/1.73sq.m Final eGFR not reported due to non-numeric value for Creatinine. Reported eGFR is based on the CKD-EPI 2020 equation that does not use a race coefficient. TROPONIN I, HIGH SENSITIVITY 12/22/2024 <2 <16 ng/L Final LIPASE 12/22/2024 25 17 - 40 U/L Final Extra Tube 12/22/2024 Auto Resulted Final IRON 12/22/2024 12 (L) 50 - 170 ug/dL Final TRANSFERRIN 12/22/2024 424 (H) 168 - 336 mg/dL Final IRON BINDING 12/22/2024 594 (H) 250 - 425 ug/dL Final IRON SATURATION 12/22/2024 2 (L) 15 - 50 % SATURATION Final Ultrasound findings Pertinent Ultrasound findings are see report. Assessment/Plan 24 y.o. @ at 21w4d with Estimated Date of Delivery: 05/01/25 here for consultation regardin. 21 weeks gestation of 2. Monochorionic diamniotic twin , unspecified trimester Monochorionic- Diamniotic Twin - MCDA An MCDA represents a monozygotic that carries the typical risks of twin pregnancies with the additional potential issues related to a shared placenta. - Multifetal gestations are associated with increased risk of and infant morbidity and mortality. Women with multifetal gestations are 6 times more likely to give and 13 times more likely to give before 32 weeks gestation than women with a mena . When compared with dichorionic twins, monochorionic twins have a higher frequency of and mortality, as well as morbidities, such as and congenital anomalies, prematurity and growth restriction. A detailed anatomical survey and echocardiogram are warranted. anatomies and ech ocardiograms are incomplete. - Complications associated with multifetal gestations include hyperemesis, gestational diabetes mellitus, hypertension, anemia, hemorrhage, delivery and depression. The management of these is the same as mena gestation. The increased incidence of hypertensive conditions ([place] 6.5%, twins 12.7% and triplets 20%). Early screening for diabetes in the first trimester and aspirin to prevent preeclampsia are warranted. - We also discussed that there are limitations to screening for aneuploidy with multifetal gestations. Serum tests are not as sensitive in part because analyte levels from the normal and affected fetuses are in effect averaged together, thus potentially masking abnormal levels. Cell free DNA screening can be performed with certain companies in the setting of MCDA twins. She has low risk cell freeDNA. - Unequal sharing of the placenta increases the risks of specific complications related to MCDA twins. Twin-Twin Transfusion Syndrome (TTS) occurs in 10-15% of mono-di pregnancies and usually presents in the second trimester and represents improper anastomoses between the - circulation within the placenta. We recommend serial ultrasounds starting at 16 weeks every 2 weeks to assess stomachs, bladders and maximum vertical pocket (MVP) of amniotic fluid. MCA Dopplers can also be performed to screen for anemia due to Twin Anemia- Polycythemia Sequence. In addition we recommend serial growth ultrasounds every 4 weeks after 24 weeks for the increased risk of growth restriction. - Delivery is recommended late /early term between 33a7t-37m6v gestation gestation. Mode of delivery is based on obstetric indications. As long as the presenting twin is cephalic and second twin is not significantly larger a vaginal delivery is preferred pending a discussion with current provider about comfort level with vaginal delivery. For twin , the IOM recommends a gestational weight gain of: 16.8-24.5 kg (37-54 lb) for women of normal weight, 14.1-22.7 kg (31-50 lb) for overweight women, 11.3-19.1 kg (25-42 lb) for obese women. Recommendations - Daily low dose (81mg) aspirin for preeclampsia prevention - TTTS and TAPS protocol through MFM - scheduled for follow up survey and echocardiograms - growth US q 4 weeks through MFM - monitoring with weekly NST and DVP at 32 weeks until delivery at OB office - delivery 99c9g-65c4u gestation. Provided maternal and stability delivery recommended 37 week to minimize risk of prematurity - if delivery before 37 wks evaluate for steroids for lung maturity - mode of delivery based on obstetric indications and provider preference - please optimize her iron deficiency - please obtain baseline Pr/Cr ratio -location of delivery pending clinical course. Plan reviewed with patient. She vocalized understanding all questions answered. The patient is to continue with routine care in your office Thank you for allowing me to participate in her care. Please contact me if you have any concerns. Pepe Saha MD, FACOG (she/hers) Maternal- Medicine [facility] [address] [place] [address] This document was created with [employer]ent technology. Though I make every effort to review the dictation as it is transcribed, on occasion the spoken word can be misinterpreted by the technology leading to inappropriate words, phrases, or sentences. This note is addressed to the requesting provider as a consultation for clinical guidance. Specificmedical abbreviations are occasionally used and those are generally approved by the [place]?Board of?Obstetrics and?Gynecology?as well as?Theresa salvador abbreviations. The above plan of care was based solely on the diagnoses for which a consultation was requested. ?More frequent testing may be indicated based on her other medical/obstetrical conditions. The management of other or medical conditions is beyond the scope of requested consultation and will c ontinue to be followed by the primary voip engineer or primary care provider. Note to patient: The Cures Act makes medical notes like these available to patients inthe interest of transparency. However, be advised this is a medical document. It is intended as peer to peer communication. It is written in medical language and may contain abbreviations or verbiagethat are unfamiliar. It may appear blunt or direct. Medical documents are intended to carry relevant information, facts as evident, and the clinical opinion of the practitioner. documented in this encounterCentral Vermont Medical CenterOne On One Ads10-20-2025 History of Present illness Narrative* DYLAN Cunha - 12/14/2024 2:40 PM EDT Reason for Appointment: Patient ID: Naye Parsons is a 24 y.o. female who presents for Routine Visit, Well Women Visit, and STI Screening Patient presents today for Return OB appointment. And pap MEDICATIONS No current outpatient medications ALLERGIES Allergies[1] PROBLEMS Active Ambulatory Problems Diagnosis Date Noted No Active Ambulatory Problems Resolved Ambulatory Problems Diagnosis Date Noted No Resolved Ambulatory Problems No Additional Past Medical History HISTORY PAST MEDICAL HISTORY SOCIAL HISTORY Medical History[2] Social History Tobacco Use Smoking status: Never Smokeless tobacco: Never Substance Use Topics Alcohol use: Not Currently Drug use: Not Currently Types: Marijuana FAMILY HISTORY Family History[3] SURGICAL HISTORY Surgical History[4] REVIEW OF SYSTEMS Review of Systems: Review [...] nursing note reviewed. Exam conducted with a senior teller present. Vitals: Estimated body mass index is 19.9 kg/m as calculated from the following: Height as of 09/28/24: 5' 2 . Weight as of this encounter: 108 lb 12.8 oz. BP: 100/60 Patient's last menstrual period was 07/25/2024. Assessment/Plan ICD-10-CM 1. 20 weeks gestation of ([facility]) Z3A.20 POCT urinalysis dipstick manually resulted Alpha fetoprotein, maternal Alpha fetoprotein, maternal 2. Second trimester ([facility]) Z34.92 POCT urinalysis dipstick manually resulted Alpha fetoprotein, maternal Alpha fetoprotein, maternal 3. Monochorionic diamniotic twin , antepartum ([facility]) O30.039 Alpha fetoprotein, maternal Alpha fetoprotein, maternal 4. Well woman exam with routine gynecological exam Z01.419 Pap Smear 5. Exposure to STD Z20.2 CHLAMYDIA TRACHOMATIS (GENITO/STI) Neisseria gonorrhea DNA probe, direct 6. Vaginal discharge N89.8 SURESWAB(R) ADVANCED VAGINITIS PLUS, TMA 7. , unspecified gestational age ([facility]) Z34.90 Rapid drug screen, urine Rapid drug screen, urine 8. Encounter for supervision of normal first in first trimester ([facility]) Z34.01 Rapid drug screen, urine Rapid drug screen, urine Return OB: Patient presents today for a routine obstetrics appointment. Patient is currently 20w2d . Patient states she is doing well but has complaints of being tired due to current . Patient has verbalizes frequent movement. labor precautions was discussed/given and patient was instructed to perform kick counts three times a day. Orders Placed This Encounter Procedures Alpha fetoprotein, maternal CHLAMYDIA TRACHOMATIS (GENITO/STI) Neisseria gonorrhea DNA probe, direct Rapid drug screen, urine POCT urinalysis dipstick manually resulted Follow Up: Patient is to return to office in 2 week for routine OB appointment. Documented by Lauren Rust NP on behalf of: DYLAN Cunha [1] No Known Allergies [2] History reviewed. No pertinent past medical history. [3] No family history on file. [4] History reviewed. No pertinent surgical history. documented in this encounterScotland County Memorial [id number] Miscellaneous Notes* Telephone Encounter - Lee Meadows - 11/27/2024 11:36 AM EDT Study Coordinator brigid for pt informing her of upcoming appt dates/times and requested a return call if she hasany issues, but specified these appts don't have much flexibility. [facility] Telephone encounter Note* Telephone Encounter - Lee Meadows - 11/27/2024 11:36 AM EDT Study Coordinator brigid for pt informing her of upcoming appt dates/times and requested a return call if she hasany issues, but specified these appts don't have much flexibility. [facility]09-[facility] History of Present illness Narrative* Daina Robins LPN - 11/18/2024 1:40 PM EDT Reason for Appointment: Patient ID: Naye Parsons [...] nursing note reviewed. Exam conducted with a senior teller present. Vitals: Estimated body mass index is 19.64 kg/m as calculated from the following: Height as of 09/28/24: 5' 2 . Weight as of this encounter: 107 lb 6.4 oz. BP: 98/68 Patient's last menstrual period was 07/25/2024. ASSESSMENT & PLAN ICD-10-CM 1. examination or test, positive result ([facility]) Z32.01 Ambulatory referral to Obstetrics / Gynecology 2. Monochorionic diamniotic twin , antepartum ([facility]) O30.039 New OB: Patient presents today for [...] or undercooked meat, and stay away from [facility]. Patient has been consulted regarding any further do's and don'tsof . Patient voiced understanding and all questions and concerns were answered. Twin gestat ion- mono-di twins pt to be referred to [facility] for anatomy scan. Discussed twin twin transfusion. Pt has vaginal pain and pressure- discussed belly band. No orders of the defined types were placed in this encounter. Follow Up: Patient is to return in 4 weeks for routine OB appointment. Documented by Daina Robins LPN on behalf of: Ronny Roa DO documented in this encounterScotland County Memorial [id number] History of Present illness Narrative* Asher Buck CNM - 10/19/2024 5:15 PM EDT Subjective No chief complaint on file. Naye Parsons is a 24 y.o. at 12w2d with a working estimated date of delivery of 05/01/2025, by Last Menstrual Period who presents for a routine visit. She denies vaginal bleeding,leakage of fluid, decreased movements, or contractions. OB [...] this visit: examination or test, positive result ([facility]) Monochorionic diamniotic twin gestation in first trimester ([facility]) Continue vitamin. Labs reviewed. Rhogam GTT . Follow up in 2 weeks for a routine visit. documented in this encounterScotland County Memorial [id number] History of Present illness Narrative* Asher Buck CNM - 09/28/2024 5:15 PM EDT Subjective Naye Parsons is a 24 y.o. at 9w2d with a working estimated date of delivery of 05/01/2025, by Last Menstrual Period who presents for an initial visit. This is unplanned. Patient Care Team: Noms Provider MD Syed as PCP - General [...] this visit: examination or test, positive result ([facility]) - Hepatitis B surface antigen; Future - [...] also given office phone number and [facility] number to call in case of an emergency or after hours needs. PVU and all questions answered. We did discuss place of delivery. Patient should plan to go to [facility] for all services unless an emergency and they need to go to the closest ER. We can make other arrangements possibly ifpatient would like to deliver at another facility but I did explain I am now at [place] 100% of the time and would like to do all deliveries there. documented in this [facility]11-22-2024 Telephone encounter Note* Telephone Encounter - Lucita Gamez MA - 01/17/2024 11:13 AM EST Spoke with pt. Pt states that she did not take test. She was 2 weeks late on her period and then started bleeding and cramping. Per aleksey advised pt pt to monitor. If she starts bleeding heavier than a pad an hour to go to er. [facility] [id number] Miscellaneous Notes* Telephone Encounter - Lucita Gamez MA - 01/17/2024 11:13 AM EST Spoke with pt. Pt states that she did not take test. She was 2 weeks late on her period and then started bleeding and cramping. Per aleksey advised pt pt to monitor. If she starts bleeding heavier than a pad an hour to go to er. * Telephone Encounter - Lucita Gamez MA - 01/16/2024 2:24 PM EST Called pt left to call me back * Telephone Encounter - Cari Richter - 01/16/2024 2:09 PM EST Pt thinks she may have had a miscarriage and would like to schedule an appt as soon as possible. documented in this [facility]11-21-2024 Telephone encounter Note* Telephone Encounter - Lucita aGmez MA - 01/16/2024 2:24 PM EST Called pt left vm to call me back [facility] [id number] Telephone encounter Note* Telephone Encounter - Cari Richter - 01/16/2024 2:09 PM EST Pt thinks she may have had a miscarriage and would like to schedule an appt as soon as possible. [facility] [id number] Hospital course Narrative* SAM Singh CNM - 03/20/2021 7:39 AM EST Obstetrical Discharge Form Gestational Age:39w0d Antepartum complications: none Date of Delivery: 03/19/2021 Type of Delivery: Delivered By: Corry Buck APRN, CNM Assisted By:N/A Baby: male Anesthesia: nubain [...] NEGATIVE NEGATIVE Ketones, Urine NEGATIVE NEGATIVE Specific Beals, UA 1.020 1.010 - 1.020 Urine Hgb [...] # 1.33 1.20 - 5.20 k/uL Absolute [place] # 0.77 0.10 - 1.40 k/uL Absolute [...] Your Medications These medications were sent to [address] - [facility] - [phone] - F [phone] [facility] [phone] docusate sodium 100 MG capsule ibuprofen 800 MG tablet Admit date: 03/18/2021 8:39 PM Discharge Date: 03/20/2021 Discharged to: Home in stable condition Plan: Follow up in 2 week(s) for post visit, blood pressure check, breast feeding check and post depression check documented in this [facility] Work Phone: 1(738) 853-881601-24-2022 History of Present illness Narrative* Sole Nielson APRN - CNM - 03/20/2021 7:31 AM EST Department of Obstetrics and Gynecology Labor and Delivery Post Progress Note SUBJECTIVE: Pt reports feeling well this morning. Is her . Desires discharge [place]. OBJECTIVE: Vitals: BP (!) 92/55 Pulse 92 [...] Discharge to home. Routine care and support. * SAM Hidalgo CNM - 03/19/2021 8:40 AM EST Arrived in unit. Patient pushing with RANDI Muniz. Care relinquished by Connie to me. Patient continues to push * Radha Conley RN - 03/18/2021 8:45 PM EST Pt unable to void at this time. * Radha Conley RN - 03/18/2021 8:39 PM EST Pt arrived to OB department with c/o [...] questions/concerns at this time. documented in this encounterSelect [facility] Specialty Hospital - ColumbusHelioVolt Phone: evaluation note* Diagnosis (spontaneous vaginal delivery)- Primary Normal delivery Term documented in this encounter [employer] Phone: evaluation note* Diagnosis examination or test, positive result ([facility]) examination or test, positive result documented in this encounter [facility]* Diagnosis examination or test, positive result ([facility])- Primary examination or test, positive result Monochorionic diamniotic twin gestation in first trimester ([facility]) documented in this encounter [facility]* Diagnosis examination or test, positive result ([facility]) examination or test, positive result Monochorionic diamniotic twin , antepartum ([facility]) documented in this encounter [facility]* Diagnosis Monochorionic diamniotic twin gestation in second trimester- Primary [facility] Diagnosis Monochorionic diamniotic twin gestation in second trimester- Primary documented in this encounter [facility]* Diagnosis Monochorionic diamniotic twin gestation in second trimester- Primary documented in this [facility]* Diagnosis 20 weeks gestation of ([facility]) Second trimester ([facility]) state, incidental Monochorionic diamniotic twin , antepartum ([facility]) Well woman exam with routine gynecological exam Routine gynecological examination Exposure to STD Vaginal discharge Leukorrhea, not specified as infective , unspecified gestational age ([facility]) Encounter for supervision of normal first in first trimester ([facility]) documented in this encounter [facility]* Diagnosis 21 weeks gestation of - Primary Monochorionic diamniotic twin , unspecified trimester documented in this encounter [facility] Dis[facility] instructions* Attachments The following attachments cannot be sent through Care Everywhere. * (Lebanese) * Depression: (Lebanese) * Parenting: Stress and Infants (Lebanese) * (Lebanese) documented in this encounterTROVE [employer] Work Phone: InstructionsNot on filedocumented in this encounter [facility] SystemInstructionsNot on filedocumented in this encounter [facility] SystemInstructionsNot on filedocumented in this encounter [facility] SystemInstructionsNot on filedocumented in this encounter [facility] SystemInstructions* Attachments The following attachments cannot be sent through Care Everywhere. * Preeclampsia (Lebanese) documented in this encounterCincinnati [facility] SystemReason for visit Narrative* OBGYN (Routine) - AuthorizedSpecialtyDiagnoses / ProceduresReferred By Contact Referred To ContactObstetrics and Gynecology Diagnoses examination or test, positive result ([facility]) Procedures [place] OFFICE/OUTPATIENT [facility] 60 MINUTES Asher Buck CNM [address] [place] [address] Phone: tel: fax: Asher Buck CNM [address] [place] [address] Phone: tel: fax: Referral IDStatusReasonStart DateExpiration DateVisits RequestedVisits [id number] Specialty Services Required /515 [facility] Summary Purpose Family History No Family History Records FoundNo Family History Records FoundNo Family History Records FoundNo Family History Records FoundNo Family History Records FoundNo Family History Records Found Advance Directives No Advanced Directives Records FoundDocuments on File TypeDate RecordedPatient RepresentativeExplanationACP-Advance DirectiveACP-Power of AttorneyCode StatusDate ActivatedDate InactivatedCommentsFull Code03/19/2021 10:57 AMFull Code03/18/2021 9:21 PM03/19/2021 10:06 AMFull Code03/18/2021 8:40 PM 03/18/2021 9:21 PM Additional Source Comments INFORMATION SOURCE (unrecogn ized section and content) DATE CREATED AUTHOR 02/19/2020 [facility] DATE CREATED AUTHOR AUTHOR'S ORGANIZ ATION 03/06/2021 [facility] [employer] DATE CREATED AUTHOR AUTHOR'S ORGANIZ ATION 03/20/2021 [facility] DATE CREATED AUTHOR AUTHOR'S ORGANIZ ATION 12/15/2024 [facility] DATE CREATED AUTHOR AUTHOR'S ORGANIZ ATION 12/25/2024 [facility] DATE CREATED AUTHOR AUTHOR'S ORGANIZ ATION 01/07/2025 [facility] Reason for Visit (unrecogniz ed section and content) ReasonCommentsRupture of MembranesSpecialtyDiagnoses / ProceduresReferred By ContactReferred To Contact Diagnoses Term Connie Lizarraga, SAM - CNM [address] [place] [address] [facility] [address] [place] [address] Referral IDStatusReasonStart DateExpiration DateVisits RequestedVisits [id number] VisitReasonCommentsRoutine VisitWell Women VisitSTI ScreeningReasonCommentsMono-di twins Ordered Prescriptions (unrec ognized section and content) PrescriptionSigDispensedRefillsStart DateEnd Date docusate sodium (COLACE) 100 MG capsule Take 1 capsule by mouth 2 times daily as needed for Constipation 60 capsule ibuprofen (ADVIL;MOTRIN) 800 MG tablet Take 1 tablet by mouth every 8 hours 60 tablet Scheduled Active and Recently Administ ered Medications (unrecognized section and content) Medication Order// benzocaine-menthol (DERMOPLAST) 20-0.5 % spray Topical, 2 TIMES DAILY, First dose on 03/19/21 at 1115, Apply to perineal area. Patient is capable and may self administer at bedside., * 1212 (Given - Provider: Loreta Marvin RN) * 2100 (Not Given - Provider: Radha Conley RN - Reason: Other - Comment: pt self administering) * 0801 (Not Given - Provider: Loreta Marvin RN - Reason: Other - Comment: Pt has already) * 2100 (Due) ferrous sulfate (IRON 325) tablet 325 mg 325 mg, Oral, 2 TIMES DAILY WITH MEALS, First dose on 03/19/21 at 1115, Start if Hgb less than 10., * 1212 (Given - Provider: Loreta Marvin RN) * 1655 (Given - Provider: Donya Neal RN) * 0757 (Given - Provider: Loreta Marvin RN) * 1700 (Due) ibuprofen (ADVIL;MOTRIN) tablet 800 mg 800 mg, Oral, EVERY 8 HOURS, First dose on 03/19/21 at 1115, Do not crush or break., * 1211 (Given - Provider: Loreta Marvin, ALTAF) * 1847 (Given - Provider: Loreta Marvin, RN) * 0504 (Given - Provider: Radha Conley, ALTAF) * 1126 (Given - Provider: Loreta Marvin, ALTAF) * 1915 (Due) measles, mumps & rubella vaccine (MMR) injection 0.5 mL 0.5 mL, SubCUTAneous, PRIOR TO DISCHARGE, Starting on 03/19/21 at 1057, For 1 dose, vitamin 27-1 MG tablet 1 tablet 1 tablet, Oral, DAILY, First dose on 03/19/21 at 1115 * 1212 (Given - Provider: Loreta Marvin, ALTAF) * 0757 (Given - Provider: Loreta Marvin RN) sodium chloride flush 0.9 % injection 10 mL (CANCELED) 10 mL, IntraVENous, EVERY 12 HOURS SCHEDULED (2 times per day), First dose on 03/19/21 at 1115, * 1102 (Not Given - Provider: Loreta Marvin RN - Reason: Other - Comment: IV infusing) * 2100 (Given - Provider: Radha Conley, ALTAF) * 0801 (Not Given - Provider: Loreta Marvin RN - Reason: Other - Comment: IV dcd) mozhoml-mrpdrg-ttrdd pertussis (BOOSTRIX) injection 0.5 mL 0.5 mL, IntraMUSCular, PRIOR TO DISCHARGE, Starting on 03/19/21 at 1057, For 1 dose, If not previously administered during at 27-36 weeks as recommended by CDC., witch nirav-glycerin (TUCKS) pad Topical, 2 TIMES DAILY, First dose on 03/19/21 at 1115, Apply to perineal area. Patient is capable and may self administer at bedside., * 1212 (Given - Provider: Loreta Marvin RN) * 2100 (Not Given - Provider: Radha Conley RN - Reason: Other - Comment: pt self administering) * 0801 (Not Given - Provider: Loreta Marvin RN - Reason: Other - Comment: Pt has already) * 2100 (Due) Medication Order// acetaminophen (TYLENOL) tablet 650 mg 650 mg, Oral, EVERY 4 HOURS PRN, Fever, Fever >100.5 F (38 C) or pain 1-10, Starting on 03/19/21 at 1057, Maximum dose of acetaminophen is 4000 mg from all sources in 24 hours., calcium carbonate (TUMS) chewable tablet 500 mg (CANCELED) 500 mg, Oral, 3 TIMES DAILY PRN, Heartburn, Starting on 03/19/21 at 0433, STAT * 0441 (Given - Provider: Radha Conley, ALTAF) [...] at 2118, For 1 dose, Post Delivery * 0920 (Given - Provider: Loreta Marvin, ALTAF) nalbuphine (NUBAIN) injection 10 mg (CANCELED) 10 mg, IntraVENous, EVERY 2 HOURS PRN, Pain Moderate (4-6), Pain Severe (7-10), For pain, Starting on 03/18/21 at 2118, PRN for pain, Labor and Delivery * 0151 (Given - Provider: Radha Conley, ALTAF) ondansetron (ZOFRAN) injection 4 mg (CANCELED) 4 mg, IntraVENous, EVERY 6 HOURS PRN, Nausea, Starting on 03/18/21 at 2118, Labor and Delivery * 0546 (Given - Provider: Radha Conley, ALTAF) ondansetron (ZOFRAN-ODT) disintegrating tablet 8 mg 8 mg, Oral, EVERY 8 HOURS PRN, Nausea, Starting on 03/19/21 at 1057, sodium chloride flush 0.9 % injection 5-40 mL (CANCELED) 5-40 mL, IntraVENous, PRN, Line Care, Starting on 03/18/21 at 2118, For Line Patency: PeripheralIV = 5 mL; Midline or Central Line = 10 mL/lumen. If following IV push medication, administer flushat same rate as the IV push. Flush [...] Line = 20 mL/lumen, Labor and Delivery * 0152 (Given - Provider: Radha Conley, ALTAF) * 0516 (Given - Provider: Radha Conley, ALTAF) Care Teams (unrecognized sec tion and content) Team MemberRelationshipSpecialtyStart DateEnd Date Unallocated, Noms Provider, [facility] [place] [address] PCP - GeneralFamily Medicine04/10/23Team MemberRelationshipSpecialtyStart DateEnd Date Unallocated, Noms ProviderMD [address] [place], [place] [address] [address] PCP - GeneralFamily Medicine04/10/23Team MemberRelationshipSpecialtyStart DateEnd Date Unallocated, Noms MD Adela [address] [place] [address] [place] [address] PCP - GeneralFamily Medicine04/10/23Team MemberRelationshipSpecialtyStart DateEnd Date Unallocated, Noms MD Adela [facility] [place] [address] PCP - Generalmily Medicine04/10/23Team MemberRelationshipSpecialtyStart DateEnd Date Unallocated, Noms MD Adela [address] [place], [place] [address] [address] PCP - Generalmily Medicine04/10/23Team MemberRelationshipSpecialtyStart DateEnd Date Unallocated, Noms MD Adela [address] [place] [address] PCP - Generalmily Medicine04/10/23Team MemberRelationshipSpecialtyStart DateEnd Date [facility], [facility] [address] [place], [place] PCP - GeneralFamily Medicine03/12/17Team MemberRelationshipSpecialtyStart DateEnd Date [facility] [address] [place] PCP - GeneralFamily Medicine03/12/17Team MemberRelationshipSpecialtyStart DateEnd Date Services, [facility] [address] [place], [place] PCP - GeneralFamily Medicine03/12/17Team MemberRelationshipSpecialtyStart DateEnd Date [facility] [address] [place], [place] PCP - GeneralFamily Medicine03/12/17Team MemberRelationshipSpecialtyStart DateEnd Date [facility] [address] [place], [place] PCP - GeneralFamily Medicine03/12/17Team MemberRelationshipSpecialtyStart DateEnd Date Unallocated, Noms Provider, MD Reji [address] [place], [place] [id number] PCP - GeneralFamily Medicine04/10/23Team MemberRelationshipSpecialtyStart DateEnd Date [facility] [address] [place], [place] PCP - GeneralFamily Medicine03/12/17 FOR RECORDS PERTAINING TO PATIENTS WHO ARE [...] BE BASED ON THE PRIMARY CLINICAL RECORDS. [facility]. provides no warranty or guarantee of the accuracy or completeness of information in this document.
[2025-01-19 09:51] LABS: Hematocrit 26.1 % (36.0-48.0); Hemoglobin 8.0 g/dL (12.0-16.0); Immature Granulocytes Abs Auto 0.04 10^3/uL (0.00-0.03); Immature Granulocytes Pct Auto 0.4 % (0.0-0.5); Lymphocytes Absolute Auto 1.8 10^3/uL (1.2-3.8); Mean Corpuscular HGB Conc 30.7 g/dL (29.9-35.2); Mean Corpuscular Hemoglobin 24.0 pg (26.7-34.0); Mean Corpuscular Volume 78.4 fL (81.0-99.0); Platelet Count 282 10^3/uL (150-450); Red Blood Count 3.33 10^6/uL (4.20-5.40); White Blood Count 9.2 10^3/uL (4.0-11.0)
[2025-01-19 10:12] LABS: Glucose 1 Hour 104 mg/dL (<130)
== END 2025-01-19 08:41 | disposition home or self-care (01) ==
LOC: LAB 08:42
PROVIDERS: Visit Provider Obstetrics & Gynecology
DX: Z13.1 Encounter for screening for diabetes mellitus (principal)
CPT/HCPCS: 36415; 82950; 85025